=== PATIENT | female | born 1970 | race Caucasian/White ===

== ENCOUNTER 2019-12-31 05:49 | Outpatient (CLI) | payer OTHER, SELFPAY ==
[2019-12-31 16:38] LABS: SARS-CoV-2 RNA PCR Negative
== END 2019-12-31 05:50 | disposition home or self-care (01) ==
LOC: ANHCOVIDDT 05:50
PROVIDERS: Visit Provider Orthopaedic Surgery
DX: Z01.818 Encounter for other preprocedural examination (principal); M17.0 Bilateral primary osteoarthritis of knee; Z11.59 Encounter for screening for other viral diseases
CPT/HCPCS: 87635; C9803; U0003

== ENCOUNTER 2020-01-02 01:08 | Day surgery (SDC) | payer OTHER, SELFPAY ==
[2019-12-30 14:31] VITALS: BMI 31.1
[2020-01-02] VITALS (9 sets, daily range): BP systolic 104–126; BP diastolic 64–80; PULSE 59–74; RESP 10–18; TEMP 36–36.4; O2SAT 97–100
[2020-01-02] MEDS: LACTATED RINGERS 1,000 ML 30 ML IV CONT ×2 (08:45→10:49)
--- NOTE | 2020-01-02 09:19 | WPDANESEPPF ---
Anes - Initial Pre Proc Eval Procedure: Operation Date: 01/02/20 09:30 Proposed Procedures p Left Knee Arthroscopic Debridement, Proceed As Indicated, Right Knee Injection - Jhonny Alex MD Date/Time: 01/02/20 09:19 Surgeon: Jhonny Alex MD Pre Op Diagnosis: OA Fercho Knee Patient Data Age: 49 Gender: F Height: 5 ft 7 in Weight: 89.7 kg Last Vital Signs Temp 36.4 C L 01/02/20 08:05 Pulse 73 01/02/20 08:05 Resp 18 01/02/20 08:05 BP 104/78 01/02/20 08:05 Pulse Ox 98 01/02/20 08:05 Allergies Allergy/AdvReac Type Severity Reaction Status Date / Time codeine Allergy Unknown Hives Verified 12/30/19 14:18 Home Medications Medication Instructions Recorded Confirmed Type escitalopram oxalate 20 mg PO DAILY 12/30/19 01/02/20 History Patient hx anesthesia problems: none Family hx anesthesia problems: none PMFSH Past Medical History Medical History (Updated 01/02/20 @ 09:20 by Tal Salgado MD) Obesity Osteoarthritis of both knees Surgical History Surgical History (Updated 01/02/20 @ 09:20 by Tal Salgado MD) History of appendectomy History of arthroscopy of both knees History of cholecystectomy Family History Family History Other Family history of malignant neoplasm Social History Social History Smoking status: Never smoker Anes - Eval Final PreProcedure Day of Procedure 01/02/20 09:19 Patient weight: obese Heart: regular rate and rhythm Lungs: clear to auscultation Airway: Mallampati scale class II Neurological: alert and oriented ASA classification: II Emergent: no Anesthetic plan: proceed Anesthesia type and monitoring: general LMA and standard monitoring Informed Consent: The patient's anesthetic plan and its attendant risks and benefits were discussed with the patient/family/POA. Questions were solicited and answers provided to the satisfaction of the patient/family/POA.
--- NOTE | 2020-01-02 09:43 | WPDHPUPDATE1 ---
History and Physical Update Update Date/Time: 01/02/20 09:43 History and Physical has been reviewed, including an updated exam of the patient. There are NO changes in the patient's condition. Risks, benefits, and alternatives have been discussed and questions answered. Patient agrees to proceed with procedure.
[2020-01-02] MEDS: ceFAZolin 2 GM/D5W 50 ML 2 GM/50 ML BAG IVPB (09:56)
[2020-01-02] MEDS: methylPREDNISolone ACETATE 80 MG/ML VIAL IM (10:09)
[2020-01-02] MEDS: BUPIVACAINE/EPINEPHRINE 0.5% 30 ML VIAL INFILTRATE (10:17)
[2020-01-02] MEDS: KETOROLAC 30 MG/ML VIAL (*BKC) IV PUSH (10:42)
[2020-01-02] MEDS: ONDANSETRON INJ 4 MG/2 ML VIAL IV PUSH (11:10)
--- NOTE | 2020-01-02 12:28 | SUR.PHASEII ---
1225- RIDE CALLED WITH UPDATE.
--- NOTE | 2020-01-03 15:33 | PM.PROC ---
Procedure Note - Detailed Date of procedure: 01/02/20 Pre-op diagnosis: OA Fercho Knee Post-op diagnosis: other (1. Symptomatic degenerative medial meniscus tear 2. Partial ACL tear ) Procedure performed: 1. Arthroscopic partial medial meniscectomy. 2. Arthroscopic ACL debridement. 3. Arthroscopic chondroplasty. Description of procedure: The romeo was carefully inspected. The previous medial meniscectomy showed some progressive degeneration at posterior medial horn in particular. There was hyperemia at capsule. Fitzgerald cyst that was palpable was expressed into the joint. The area was treated with the arthroscopic Kylah and punches, along with the radiofrequency probe. The ACL showed partial tearing along the lateral aspect. There was some synovitis around the ACL. The radiofrequency probe was used to debride and also tighten the intact ACL fibers which were very functional. There was some scar tissue along the medial femoral condyle that was debrided. Chondroplasty was also performed at the patellofemoral joint and medial compartment. Anesthesia: GETA Surgeon: Jhonny Alex MD Estimated blood loss (mL): 5 Complications: None Condition: stable Findings: Brief History: The patient complained of knee pain, swelling and mechanical symptoms despite conservative treatment. She also had a symptomatic medial posterior Fitzgerald cyst. History of knee arthroscopy several years ago with good result. Procedure Details: The patient was identified and the surgical site confirmed and signed in the preoperative holding area. Antibiotics were started per protocol. She was brought to the operative room and transferred to the OR table. A general anesthetic was administered. Supine position with the operative lower extremity position in the leg hough after placement of a well padded tourniquet. The leg support was lowered and the contralateral limb was supported with a soft bolster. The knee was prepped and draped in the usual sterile fashion. A time-out was performed. The portal sites were marked and infiltrated with 0.5% Marcaine 20 mL. The limb was exsanguinated and the tourniquet inflated to 300 mL Hg. Standard inferolateral and inferomedial portals were established. Inflow was obtained with the saline pump. The camera was introduced. Diagnostic inspection of the joint was accomplished. The meniscus was debrided with the arthroscopic shaver and punches until stable. The radiofrequency probe was also used to treat the degenerative area at the capsule in particular and also sealed the remaining free edge of the meniscus. Chondromalacia was present primarily at the patellofemoral joint and grade 2 on the patella and grade 3 on the trochlea. Grade 1 chondromalacia on the medial tibia. Grade 2/3 on the medial femur. Lateral cartilage was healthy. The meniscus showed no significant tearing laterally. Was some synovial tissue draped across the medial femoral condyle, which was debrided. Mild synovitis was noted at the intercondylar notch. The arthroscopic instruments were removed. The tourniquet released and wounds closed with subcutaneous 3-0 Monocryl absorbable suture. Steri strips and a sterile dressing were applied. A light elastic wrap was placed. The patient was extubated and brought to the recovery room in stable condition.
== END 2020-01-02 13:35 | disposition home or self-care (01) ==
PROVIDERS: Visit Provider Orthopaedic Surgery
PROC: (CPT 29870; principal; 2020-01-02 09:30)
DX: M23.322 Other meniscus derangements, posterior horn of medial meniscus, left knee (principal); M71.22 Synovial cyst of popliteal space [Baker], left knee; M23.612 Other spontaneous disruption of anterior cruciate ligament of left knee; M94.262 Chondromalacia, left knee; M65.862 Other synovitis and tenosynovitis, left lower leg; M17.0 Bilateral primary osteoarthritis of knee; E66.9 Obesity, unspecified; Z68.31 Body mass index [BMI] 31.0-31.9, adult
CPT/HCPCS: 29881; A9270; J0131; J0690; J1040; J1885; J2250; J2405; J2704; J3010; J7120

== ENCOUNTER 2021-01-24 10:17 | Outpatient (CLI) | payer OTHER, SELFPAY ==
[2021-01-24 11:41] LABS: Hematocrit 38.7 % (37.0-47.0); Hemoglobin 13.4 g/dL (12.0-15.0)
== END 2021-01-24 10:18 | disposition home or self-care (01) ==
PROVIDERS: Anesthesiology; Visit Provider Obstetrics & Gynecology
DX: N92.0 Excessive and frequent menstruation with regular cycle (principal); D64.9 Anemia, unspecified; Z01.818 Encounter for other preprocedural examination
CPT/HCPCS: 36415; 85014; 85018; 86850; 86900; 86901

== ENCOUNTER → 2021-01-29 00:53 | Outpatient (CLI) | payer OTHER, SELFPAY ==
[2021-01-29 17:56] LABS: SARS-CoV-2 RNA PCR Negative
== END ==
PROVIDERS: Visit Provider Obstetrics & Gynecology
DX: Z01.812 Encounter for preprocedural laboratory examination (principal); Z20.822 Contact with and (suspected) exposure to COVID-19
CPT/HCPCS: C9803; U0003; U0005

== ENCOUNTER 2021-02-01 02:19 | Day surgery (SDC) | payer OTHER, SELFPAY ==
[2021-01-19 15:23] VITALS: BMI 33.0
[2021-02-01] VITALS (14 sets, daily range): BP systolic 101–128; BP diastolic 62–91; PULSE 52–67; RESP 10–24; TEMP 36.2–37.4; O2SAT 95–100
[2021-02-01] MEDS: ACETAMINOPHEN 500 MG TABLET 1000 MG PO (10:00)
[2021-02-01] MEDS: LACTATED RINGERS 1,000 ML 30 ML IV CONT ×2 (10:10→12:33)
[2021-02-01] MEDS: KETOROLAC 15 MG/ML VIAL (*BKC) IV PUSH ×2 (10:15→14:06)
--- NOTE | 2021-02-01 10:23 | WPDHPUPDATE1 ---
History and Physical Update Update Date/Time: 02/01/21 10:23 History and Physical has been reviewed, including an updated exam of the patient. There are NO changes in the patient's condition. Risks, benefits, and alternatives have been discussed and questions answered. Patient agrees to proceed with procedure.
--- NOTE | 2021-02-01 10:27 | WPDANESEPPF ---
Anes - Initial Pre Proc Eval Procedure: Operation Date: 02/01/21 11:30 Proposed Procedures p Laparoscopic Assisted Total Hysterectomy With Bilateral Salpingo Oophorectomy - Mara Martin MD Date/Time: 02/01/21 10:27 Surgeon: Mara Martin MD Pre Op Diagnosis: Menorrhagia Patient Data Age: 50 Gender: F Height: 1.68 m Weight: 93 kg Allergies Allergy/AdvReac Type Severity Reaction Status Date / Time codeine Allergy Unknown Hives Verified 01/19/21 15:21 Home Medications Medication Instructions Recorded Confirmed Type bupropion HCl 150 mg PO DAILY 01/19/21 01/19/21 History escitalopram oxalate 20 mg PO DAILY 01/19/21 01/19/21 History ferrous sulfate [iron] 325 mg PO DAILY 01/19/21 01/19/21 History magnesium 1 tablet PO DAILY 01/19/21 01/19/21 History vitamin B complex [Super B Complex] 1 tablet PO DAILY 01/19/21 01/19/21 History Patient hx anesthesia problems: post op nausea/vomiting Family hx anesthesia problems: none PMFSH Past Medical History Medical History (Updated 01/31/21 @ 09:40 by Blane Swanson DO) Anxiety Depression Obesity Osteoarthritis of both knees Surgical History Surgical History (Updated 01/31/21 @ 09:40 by Blane Swanson DO) History of appendectomy History of arthroscopy of both knees History of History of cholecystectomy Family History Family History Other Family history of malignant neoplasm Social History Social History Smoking status: Never smoker Alcohol intake: never Substance use: never Substance use type: does not use Living arrangements: alone Spiritual care concerns: No Anes - Eval Final PreProcedure Day of Procedure 02/01/21 10:27 Patient weight: obese Heart: regular rate and rhythm Lungs: clear to auscultation and normal air movement Airway: Mallampati scale class II Neurological: alert and oriented Last oral intake: >/= 8 hours ASA classification: II Emergent: no Anesthetic plan: proceed Anesthesia type and monitoring: general ETT and standard monitoring Informed Consent: The patient's anesthetic plan and its attendant risks and benefits were discussed with the patient/family/POA. Questions were solicited and answers provided to the satisfaction of the patient/family/POA.
--- NOTE | 2021-02-01 10:31 | W.PM.PROC2 ---
Procedure Note - Detailed Date of Procedure 02/01/21 Pre-op Diagnosis Menorrhagia, uterine fibroids Post-op Diagnosis same (Cervical polyp) Procedure Performed Total laparoscopic hysterectomy and bilateral salpingectomy. Surgeon Mara Martin MD Anesthesia general Indications Severe menometrorrhagia Findings Moderately large uterus with multiple uterine fibroids, normal appearing tubes and ovaries, cervical polyp Description of Procedure This patient was taken to the operating room. She was prepped and draped in the dorsal lithotomy position after induction of general anesthesia. The uterine manipulator and Altagracia cup were placed. This was done with a speculum and tenaculum. The speculum was placed. The cervix was grasped with a tenaculum. The stay sutures were placed at 3 and 9:00 a.m.. The tenaculum was removed. The stay sutures of 0 Vicryl were brought through the appropriately sized Altagracia cup that was fixed to the MAR manipulator.. The tip of the MAR manipulator was placed in the intrauterine cavity. The cup was slid into place around the cervix and into the fornices. It was locked into place. The sutures were then wrapped around the handle and tied under tension. A 5 mm skin incision was made in the left upper quadrant the abdomen. A 5 mm trocar was inserted into the intrauterine cavity under direct visualization of the scope. Pneumoperitoneum was achieved. A left lower quadrant 11 mm incision was made with scalpel. An 11 mm trocar was inserted into the anterior abdominal cavity under direct visualization the scope. A 5 mm infraumbilical incision was made with a scalpel and a 5 mm trocar was inserted the intra-abdominal cavity under direct visualization of the scope. Bilateral ureteral lysis was performed. This was done from the pelvic brim down to the uterine artery. This was done with careful dissection using sharp and blunt dissection. Being mindful of the ureters the infundibulopelvic ligament was cauterized transected. This was done bilateral fashion using the LigaSure cautery. The para ovarian tissue was cauterized and dissected LigaSure cautery in a bilateral fashion. In a stepwise fashion along the lateral aspects of the uterus the round ligament and broad ligaments were cauterized transected down to the level of the uterine arteries. A bladder flap was created and the bladder was moved distally to the end of the cervix and over the Altagracia cup. The bilateral uterine arteries were cauterized and transected. Colpotomy was then performed. In a circumferential fashion the vagina was transected using unipolar cautery. The incision was made down on the Altagracia. The ovaries, fallopian tubes, uterus and cervix were taken out through the vagina. A pneumo occluder was placed in the vagina. The vaginal cuff was closed with a 0 V lock suture. The pelvis was irrigated with copious amounts antibiotic irrigation. The ureters were again examined and found to be intact and flowing freely under the uterine arteries into the bladder. The bladder was intact. It was examined directly. The vagina was irrigated with Betadine solution after removal of the Pneumo occluder. The patient was taken to recovery room. She was stable condition. Sponge lap and needle counts were correct x2. Estimated Blood Loss 200 Drains No Packing No Pathology yes Complications No immediate complications Condition stable Disposition PACU
[2021-02-01] MEDS: FAMOTIDINE 20 MG/2 ML VIAL IV PUSH (10:32)
[2021-02-01] MEDS: SCOPOLAMINE 1.5 MG PATCH TRANSDERM (10:33)
[2021-02-01] MEDS: ceFAZolin 2 GM/D5W 50 ML 2 GM/50 ML BAG IVPB (10:49)
[2021-02-01] MEDS: fentaNYL CITRATE INJ (*CRX) 100 MCG/2 ML VIAL 25 MCG IV PUSH ×4 (12:46→13:08)
[2021-02-01] MEDS: ONDANSETRON INJ 4 MG/2 ML VIAL IV PUSH (13:06)
[2021-02-01] MEDS: HYDROmorphone HCL INJ (*CRX) 1 MG/ML SYR 0.5 MG IV PUSH ×6 (13:24→14:17)
[2021-02-01] MEDS: DEXTROSE 5%/0.45% SOD CHL 1,000 ML 125 ML IV CONT (15:44)
[2021-02-01] MEDS: HYDROcodone/acetaminophen (*CRX) 5-325 MG TABLET 1 TAB PO ×2 (15:44→16:38)
--- NOTE | 2021-02-01 15:56 | OBPPTRN ---
1507 Patient transferred to post room #283 via bed. Support person present. Oriented to unit, room, information board, admission packet and security measures. Patient verbalizes understanding.
[2021-02-01] MEDS: HYDROcodone/acetaminophen (*CRX) 10-325 MG TABLET 1 TAB PO ×2 (19:57→23:18)
[2021-02-01] MEDS: KETOROLAC 30 MG/ML VIAL (*BKC) IV PUSH (20:59)
[2021-02-02] MEDS: HYDROcodone/acetaminophen (*CRX) 10-325 MG TABLET 1 TAB PO ×3 (02:12→09:44)
[2021-02-02] MEDS: KETOROLAC 30 MG/ML VIAL (*BKC) IV PUSH (03:14)
[2021-02-02 03:41] VITALS: BP 121/67; PULSE 78; RESP 20; TEMP 36.6; O2SAT 100
--- NOTE | 2021-02-02 07:58 | WPDANESPN ---
Anes - Prog Note Post-Op Date/Time: 02/02/21 07:58 Cardiovascular status: normal Respiratory status: normal Airway patency: baseline Mental status: baseline Post-Op hydration status: normal Vital Signs: Last Vital Signs Temp 36.6 C 02/02/21 03:41 Pulse 78 02/02/21 03:41 Resp 20 02/02/21 03:41 BP 121/67 02/02/21 03:41 Pulse Ox 100 02/02/21 03:41 Pain Score (VAS): 0 I/O: Intake & Output 02/01/21 02/01/21 02/02/21 15:59 23:59 07:59 Intake Total 750 1000 1400 Output Total 300 2400 Balance 450 1000 -1000 Post-procedural complaints: none Patient Feedback: Patient satisfied with anesthetic care.
[2021-02-02 08:10] VITALS: BP 96/60; PULSE 61; RESP 16; TEMP 37.1; O2SAT 99
--- NOTE | 2021-02-02 09:00 | PC.NURSE ---
PT introductions made and plan of care discussed per post op obstetrics gynecology md surgery, pain management, daily care activities and pending discharge to home. PT received instructions per one to one, and demonstration. No barriers to learning noted. PT and friend, Nolvia were both recipients of such teaching through out the shift. PT verbalized understanding of such care.
--- NOTE | 2021-02-02 09:29 | PM.GYNPNOP ---
[employer] - A/P Postoperative Procedures: Procedures Operation Date: 02/01/21 11:30 Actual Procedure Side Surgeon p Laparoscopic Assisted Total Hysterectomy With Bilateral Salpingo Oophorectomy, Cervical Polypectomy Bilateral Mara Martin MD Postoperative day: 1 Postoperative status: doing well and other (Tollerating Regular Diet) Postoperative plan: routine post-op care and discharge Time Spent With Patient Time: Total time spent is greater than 50% in coordination of care (as documented) at patient's floor/unit and/or counseling patient: Time with patient: 15 - 25 minutes [employer]- PN:Subj Post-Op Subjective Date/time seen: 02/02/21 09:29 Subjective: patient reports feeling better, pain is well controlled and patient is tolerating oral intake Exam Const: General: cooperative, healthy appearing, comfortable and no acute distress Resp: Auscultation: no crackles, no rales, no rhonchi and no wheezes Cardio: Rhythm: regular rhythm Heart sounds: no click and no murmurs GI: Inspection: non-distended Auscultation: normal bowel sounds Other: Incisions - CDI Extrem: General: normal to inspection, no pedal edema and no calf tenderness [employer] - PN: Obj Data Vital Signs Vital Signs: Vital Signs - 24 hr 02/01/21 10:37 02/01/21 12:39 02/01/21 12:55 Temperature 97.2 F L 97.2 F L Pulse Rate 57 L 65 67 Respiratory Rate 10 L 24 H Blood Pressure 111/71 113/73 116/91 H Pulse Oximetry 99 100 100 02/01/21 13:10 02/01/21 13:26 02/01/21 13:43 Temperature Pulse Rate 67 62 61 Respiratory Rate 16 24 H 24 H Blood Pressure 123/84 128/84 110/70 Pulse Oximetry 100 98 100 02/01/21 14:00 02/01/21 14:15 02/01/21 14:30 Temperature Pulse Rate 60 65 67 Respiratory Rate 22 H 15 18 Blood Pressure 115/68 114/76 101/72 Pulse Oximetry 100 95 100 02/01/21 14:45 02/01/21 15:07 02/01/21 18:30 Temperature 99.3 F Pulse Rate 65 66 Respiratory Rate 16 16 20 Blood Pressure 123/68 107/72 Pulse Oximetry 100 98 98 02/01/21 18:45 02/01/21 23:00 02/02/21 03:41 Temperature 98.3 F 98.3 F 97.9 F Pulse Rate 60 52 L 78 Respiratory Rate 20 18 20 Blood Pressure 109/62 104/66 121/67 Pulse Oximetry 98 100 100 02/02/21 08:10 Temperature 98.8 F Pulse Rate 61 Respiratory Rate 16 Blood Pressure 96/60 L Pulse Oximetry 99 Intake/Output Intake/Output: Intake & Output 01/30/21 01/31/21 02/01/21 02/02/21 23:59 23:59 23:59 23:59 Intake Total 1750 1400 Output Total 300 2400 Balance 1450 -1000 Meds/Results Medications: Active Medications Generic Name Dose Route Start Last Admin Trade Name Freq PRN Reason Stop Dose Admin Hydrocodone Bitart/Acetaminophen 1 tab 02/01/21 15:01 02/01/21 16:38 Hydrocodone/Acetaminophen (*Crx) 5-325 Mg Tablet PO 1 tab Q3H PRN Administration Pain Rated 5 or Less Hydrocodone Bitart/Acetaminophen 1 tab 02/01/21 15:01 02/02/21 06:05 Hydrocodone/Acetaminophen (*Crx) 10-325 Mg Tablet PO 1 tab Q3H PRN Administration Pain Rated 6 or Greater Bupropion HCl 150 mg 02/02/21 09:00 Bupropion Hcl Xl (24 Hr) 150 Mg Tabcr PO DAILY [facility] Escitalopram Oxalate 20 mg 02/02/21 09:00 Escitalopram Oxalate 10 Mg Tablet PO DAILY [facility] Ibuprofen 600 mg 02/01/21 15:01 Ibuprofen 600 Mg Tablet PO Q6H PRN Cramping Ketorolac Tromethamine 30 mg 02/01/21 15:01 02/02/21 03:14 Ketorolac 30 Mg/Ml Vial (*Bkc) IV PUSH 02/06/21 15:02 30 mg Q6H PRN Administration Pain Rated 4-6 Naloxone HCl 0.1 mg 02/01/21 15:01 Naloxone Hcl 0.4 Mg/Ml Vial IV PUSH Q2M PRN Respiratory rate less than 10 Ondansetron HCl 4 mg 02/01/21 15:01 Ondansetron Inj 4 Mg/2 Ml Vial IV PUSH Q6H PRN Nausea And Vomiting
[2021-02-02] MEDS: buPROPion HCL XL (24 HR) 150 MG TABCR PO (09:43)
[2021-02-02] MEDS: ESCITALOPRAM OXALATE 10 MG TABLET 20 MG PO (09:43)
[2021-02-02 09:45] VITALS: PULSE 61; RESP 16; O2SAT 99
[2021-02-02] MEDS: IBUPROFEN 600 MG TABLET PO (09:45)
--- NOTE | 2021-02-02 11:00 | PC.NURSE ---
PT received discharge instructions per protocol and verbalized understanding of such care.
--- NOTE | 2021-02-02 11:12 | PC.NURSE ---
PT discharged to home via wheelchair accompanied by friend, Nolvia and taken to waiting car. Follow up appts confirmed
== END 2021-02-02 11:12 | disposition home or self-care (01) ==
LOC: ANHSURGERY 09:25 → ANHOB2 15:07
PROVIDERS: Visit Provider Obstetrics & Gynecology
PROC: 0UT9FZZ Resection of Uterus, Via Natural or Artificial Opening With Percutaneous Endoscopic Assistance (ICD-10-PCS; CPT 58571; principal; 2021-02-01 11:30)
DX: N92.0 Excessive and frequent menstruation with regular cycle (principal); D25.0 Submucous leiomyoma of uterus; D25.1 Intramural leiomyoma of uterus; D25.2 Subserosal leiomyoma of uterus; N73.6 Female pelvic peritoneal adhesions (postinfective); N84.1 Polyp of cervix uteri; F41.8 Other specified anxiety disorders; E66.9 Obesity, unspecified; Z68.33 Body mass index [BMI] 33.0-33.9, adult
CPT/HCPCS: 58571; 36415; 85014; 85018; 86850; 86900; 86901; 88305; 88307; 99199; A9270; C9803; J0690; J1100; J1170; J1885; J2250; J2405; J2704; J2710; J3010; J7030; J7120; U0003; U0005

== ENCOUNTER → 2021-03-01 12:30 | Outpatient (CLI) | payer OTHER, SELFPAY ==
--- NOTE | ~2021-03-01 | MM_ITS ---
EXAMINATION: MM screening fany BI w hue HISTORY: Screening mammogram TECHNIQUE: Craniocaudal and mediolateral oblique 3-D tomosynthesis images were obtained and synthetic 2-D images were generated. CAD analysis was submitted and interpreted. COMPARISON: No prior mammogram is available for comparison at this institution. BREAST PARENCHYMAL COMPOSITION: There are scattered areas of fibroglandular density. FINDINGS: Changes of excisional biopsy are noted in the upper outer quadrant of the left breast. Ther e is no evidence of suspicious mass, calcification, or architectural distortion to suggest malignancy in either breast. IMPRESSION: 1. No mammographic evidence of malignancy. 2. Recommend routine screening mammography in one year. BI-RADS Category 2: Benign finding(s). Reviewed, dictated and finalized at location A.
== END ==
PROVIDERS: Visit Provider Obstetrics & Gynecology
DX: Z12.31 Encounter for screening mammogram for malignant neoplasm of breast (principal)
CPT/HCPCS: 77063; 77067

== ENCOUNTER 2021-04-11 08:01 | Emergency (ER) | payer OTHER, SELFPAY ==
--- NOTE | ~2021-04-11 | CT_ITS ---
EXAMINATION: CT abdomen pelvis w con DATE: 04/11/2021 09:16 INDICATION: Left lower quadrant abdominal pain. TECHNIQUE: Computed tomography (CT) of the abdomen and pelvis was performed with 100 mL Omnipaque 350 intravenous contrast. Automated exposure control and iterative reconstruction technique were employe d. The dose-length product was 930.56 mGy-cm. COMPARISON: None. FINDINGS: The visualized portions of the lung bases demonstrate mild atelectasis. No pleural effusion . The heart size is normal. No pericardial effusion. There are cysts in the liver measuring up to 5 m m. There is a 5 mm low-attenuation lesion in the spleen, likely a benign lesion such as granulomatous disease. The pancreas, adrenal glands, and kidneys are normal. There are scattered diverticula in th e colon. There is fat stranding around a diverticulum of the sigmoid colon with local bowel wall thic kening, consistent with diverticulitis. There is trace fluid in left paracolic gutter. There are no p athologically enlarged lymph nodes. There is severe lower thoracic spondylosis. There is mild chronic anterior wedging of T12 and L1 vertebral bodies. There is mild lumbar spondylosis. IMPRESSION: 1. Acute sigmoid diverticulitis. No perforation or abscess. Reviewed, dictated and finalized at location A.
[2021-04-11 08:45] LABS: Basophils Absolute Auto 0.1 K/mm3 (0.0-0.1); Basophils Percent Auto 0.5 % (0.2-1.2); Eosinophils Absolute Auto 0.1 K/mm3 (0-0.3); Eosinophils Percent Auto 0.8 % (0-4.4); Hematocrit 38.1 % (37.0-47.0); Immature Granulocyte Absolute 0.08 K/mm3 (0.00-0.031); Immature Granulocyte Percent A 0.8 % (0-0.5); Lymphocytes Absolute Auto 1.42 K/mm3 (0.9-3.2); Lymphocytes Percent Auto 13.4 % (18.3-44.2); Mean Corpuscular HGB Conc 34.1 g/dl (32-36); Mean Corpuscular Hemoglobin 31.5 pg (26-34); Mean Corpuscular Volume 92.3 fl (80-100); Mean Platelet Volume 9.1 fl (7.4-10.4); Monocytes Percent Auto 9.2 % (2.6-8.5); Neutrophils Percent Auto 75.3 % (45.5-73.1); Platelet Count Result 235 k/mm3 (150-375); Red Blood Count 4.13 M/mm3 (4.2-5.4); Red Cell Distribution Width 11.9 % (11.5-14.5); White Blood Count 10.6 K/mm3 (4.5-10.0)
[2021-04-11] MEDS: ONDANSETRON INJ 4 MG/2 ML VIAL IV PUSH (08:49)
[2021-04-11] MEDS: MORPHINE SULFATE (*CRX) 4 MG/ML INJ IV PUSH (08:50)
[2021-04-11 08:55] LABS: Alanine Aminotransferase 15 U/L (4-35); Alkaline Phosphatase 104 U/L (38-126); Anion Gap 5 mmol/L (8-16); Aspartate Amino Transferase 25 U/L (14-36); Bilirubin,Total 0.7 mg/dL (0.2-1.3); Blood Urea Nitrogen 17 mg/dL (7-17); Calcium 8.8 mg/dL (8.4-10.2); Carbon Dioxide 29 mmol/L (22-30); Chloride 103 mmol/L (98-107); Estimated Glomerular Filt Rate 52; Glucose 108 mg/dL (65-110); Potassium 4.4 mmol/L (3.4-5.0); Sodium 137 mmol/L (137-145)
[2021-04-11 08:57] LABS: Lactic Acid Reflex 0.8 mmol/L (0.7-2.1)
[2021-04-11 08:59] VITALS: BP 97/74; PULSE 66; RESP 18; TEMP 36.8; O2SAT 97
[2021-04-11 09:03] LABS: Add Urine Microscopic? YES; Appearance Urine Clear (Clear); Bacteria Urine Trace /hpf; Bilirubin Urine Negative (Negative); Blood Urine Negative (Negative); Color Urine Amber (Yellow); Glucose Urine UA Negative (Negative); Ketones Urine Negative (Negative); Leukocyte Esterase Ur Negative LEU/UL (Negative); Mucus Urine Few /lpf; Nitrate Urine Negative (Negative); Protein Urine 2+ mg/dL (Negative); RBC Urine 0-2 /hpf (0-2); Squamous Epithelial Cell Urine Few /hpf (Few); Urobilinogen Urine Negative mg/dL (<2.0)
[2021-04-11 09:10] LABS: Specific Grav Ur 1.033 (1.001-1.035)
[2021-04-11] MEDS: KETOROLAC 30 MG/ML VIAL (*BKC) IV PUSH (10:14)
[2021-04-11 11:00] VITALS: BP 102/68; PULSE 62; RESP 18; O2SAT 100
[2021-04-11 12:00] VITALS: BP 102/61; PULSE 78; RESP 18; O2SAT 100
[2021-04-11] MEDS: HYDROmorphone HCL INJ (*CRX) 1 MG/ML SYR IV PUSH (12:58)
--- NOTE | 2021-04-11 13:36 | ED.ABDPAIN ---
HPI - Abdominal Pain General Chief Complaint: Abdominal Pain Stated Complaint: Abd pain Time Seen by Provider: 04/11/21 08:06 Source: patient Mode of arrival: ambulatory Limitations: no limitations History of Present Illness HPI narrative: 50-year-old with a history of diverticulitis here with complaints of left lower abdominal pain for past few days pain has been steady since this morning. She denies any fever or chills. Denies any rectal bleeding. MD elicited complaint: abdominal pain Pertinent past history: diverticulitis Pain Consistency: constant Location: LLQ Severity: severe Quality: aching Radiation: L flank Exacerbating factors: nothing Relieving factors: nothing Associated symptoms: denies other symptoms Related Data Home Medications Medication Instructions Recorded Confirmed bupropion HCl 150 mg PO DAILY 01/19/21 02/01/21 escitalopram oxalate 20 mg PO DAILY 01/19/21 02/01/21 ferrous sulfate [iron] 325 mg PO DAILY 01/19/21 02/01/21 magnesium 1 tablet PO DAILY 01/19/21 02/01/21 vitamin B complex 1 tablet PO DAILY 01/19/21 02/01/21 Allergies Allergy/AdvReac Type Severity Reaction Status Date / Time codeine Allergy Unknown Hives Verified 04/11/21 09:04 Review of Systems Review of Systems: All systems reviewed & are unremarkable except as noted in HPI and below Constitutional: Constitutional: Reports no additional constitutional complaints Eyes: Eyes: Reports no additional eye complaints ENT: Reports system reviewed and no additional complaints, except as documented Cardiovascular: Cardiovascular: Reports no additional cardiovascular complaints Respiratory: Respiratory: Reports no additional respiratory complaints Gastrointestinal: Gastrointestinal: Reports as per HPI Genitourinary: Genitourinary: Reports no additional female genitourinary complaints Musculoskeletal: Musculoskeletal: Reports no additional musculoskeletal complaints [facility] Past Medical History Medical History Anxiety Depression Obesity Osteoarthritis of both knees Surgical History Surgical History History of appendectomy History of arthroscopy of both knees History of History of cholecystectomy Family History Family History Other Family history of malignant neoplasm Social History Social History Smoking status: Never smoker Alcohol intake: never Substance use: never Substance use type: does not use Spiritual care concerns: No Exam Narrative: GENERAL: Well-appearing, well-nourished, and in no acute distress. HEAD: Normocephalic, atraumatic. EYES: PERRLA NECK: Supple. CHEST: Clear to auscultation. No respiratory distress. HEART: Regular rate and rhythm. No murmur heard. Normal peripheral pulses. ABDOMEN: Soft, tender in the llq , nondistended, normal active bowel sounds. EXTREMITIES: Normal range of motion. No edema. SKIN: Warm, dry, no rash. NEURO: No focal deficits. Alert and oriented x3. PSYCH: Normal mood and affect. Course Course Emergency Course: Patient still continues to be in pain with high after IV morphine and Toradol. Informed her about her lab work, CT findings she wants her pain to get better. I have given IV Dilaudid which improved her pain. She states that she feels comfortable going home. I did offer admission patient declined. Vital Signs Vital signs: Vital Signs Temperature 36.8 C 04/11/21 08:59 Pulse Rate 66 04/11/21 08:59 Respiratory Rate 18 04/11/21 08:59 Blood Pressure 97/74 L 04/11/21 08:59 Pulse Oximetry 97 04/11/21 08:59 Temperature 36.8 C 04/11/21 08:59 Pulse Rate 66 04/11/21 08:59 Respiratory Rate 18 04/11/21 08:59 Blood Pressure 97/74 L 04/11/21 08:59 Pulse Oximetry 97 04/11/21 08:59 MDM - Abdominal
[2021-04-11 14:02] VITALS: BP 104/61; PULSE 65; RESP 18; O2SAT 100
== END 2021-04-11 14:03 | disposition home or self-care (01) ==
PROVIDERS: Emergency Provider Family Medicine
DX: K57.32 Diverticulitis of large intestine without perforation or abscess without bleeding (principal); F41.9 Anxiety disorder, unspecified; F32.9 Major depressive disorder, single episode, unspecified; M17.0 Bilateral primary osteoarthritis of knee; E66.9 Obesity, unspecified; Z68.32 Body mass index [BMI] 32.0-32.9, adult
CPT/HCPCS: 36415; 74177; 80053; 81001; 83605; 85025; 96365; 96375; 99284; J1170; J1885; J1956; J2270; J2405; Q9967

== ENCOUNTER 2022-04-21 10:06 | Outpatient (CLI) | payer BC, SELFPAY ==
--- NOTE | 2022-04-21 | ECG_ITS ---
Measurements Intervals [place] Rate: 46 P: 68 OK: 193 QRS: 28 QRSD: 88 T: -14 QT: 436 QTc: 382 Interpretive Statements SINUS BRADYCARDIA RSR' IN V1 OR V2, PROBABLY NORMAL VARIANT LOW QRS VOLTAGE IN PRECORDIAL LEADS BORDERLINE ST-T WAVE ABNORMALITY- ANT/INF LEADS ABNORMAL ECG NO PREVIOUS ECG AVAILABLE FOR COMPARISON Electronically Signed On 04-21-2022 14:34:36 CDT by Alonso Roldan D.O.
[2022-04-21 11:59] LABS: Basophils Percent Auto 0.6 % (0.2-1.2); Eosinophils Absolute Auto 0.1 K/mm3 (0-0.3); Eosinophils Percent Auto 0.9 % (0-4.4); Hematocrit 39.6 % (37.0-47.0); Hemoglobin 13.1 g/dL (12.0-15.0); Immature Granulocyte Absolute 0.04 K/mm3 (0.00-0.031); Immature Granulocyte Percent A 0.6 % (0-0.5); Lymphocytes Absolute Auto 0.99 K/mm3 (0.9-3.2); Lymphocytes Percent Auto 14.2 % (18.3-44.2); Mean Corpuscular HGB Conc 33.1 g/dl (32-36); Mean Corpuscular Hemoglobin 30.3 pg (26-34); Mean Corpuscular Volume 91.5 fl (80-100); Mean Platelet Volume 8.9 fl (7.4-10.4); Monocytes Absolute Auto 0.4 K/mm3 (0.1-0.6); Monocytes Percent Auto 5.6 % (2.6-8.5); Neutrophils Absolute Auto 5.5 K/mm3 (1.3-6.7); Neutrophils Percent Auto 78.1 % (45.5-73.1); Platelet Count Result 305 k/mm3 (150-375); Red Blood Count 4.33 M/mm3 (4.2-5.4); Red Cell Distribution Width 12.6 % (11.5-14.5)
[2022-04-21 12:11] LABS: CRP 1.7 mg/dL (<1.0)
[2022-04-21 12:42] LABS: Erythrocyte Sedimentation Rate 49 mm/hr (0-20); Rheumatoid Factor < 8.6 IU/ML (<12)
[2022-04-24 12:04] LABS: Anti Cyclic Citrullinated Pept <16 Units (<20)
== END 2022-04-21 10:07 | disposition home or self-care (01) ==
PROVIDERS: PCP Nurse Practitioner; Visit Provider Orthopaedic Surgery
DX: M25.461 Effusion, right knee (principal); M25.462 Effusion, left knee; M25.472 Effusion, left ankle; E66.9 Obesity, unspecified
CPT/HCPCS: 36415; 85025; 85652; 86038; 86039; 86140; 86200; 86430; 93005

== ENCOUNTER → 2022-05-24 15:27 | Outpatient (CLI) | payer BC, SELFPAY ==
--- NOTE | ~2022-05-24 | MM_ITS ---
EXAMINATION: MM screening fany BI w hue HISTORY: Screening mammogram TECHNIQUE: Craniocaudal and mediolateral oblique 3-D tomosynthesis images were obtained and synthetic 2-D images were generated. CAD analysis was submitted and interpreted. COMPARISON: 03/01/2021 BREAST PARENCHYMAL COMPOSITION: There are scattered areas of fibroglandular density. FINDINGS: No suspicious mass, calcification, or architectural distortion are identified in either shahbaz ast to suggest malignancy. There has been no suspicious interval change. IMPRESSION: 1. No mammographic evidence of malignancy. 2. Recommend routine screening mammography in one year. BI-RADS Category 1: Negative Reviewed, dictated and finalized at location A.
== END ==
PROVIDERS: PCP Internal Medicine; Visit Provider Obstetrics & Gynecology
DX: Z12.31 Encounter for screening mammogram for malignant neoplasm of breast (principal)
CPT/HCPCS: 77063; 77067

== ENCOUNTER 2025-01-30 12:07 | Outpatient (CLI) | payer BC, SELFPAY ==
--- NOTE | ~2025-01-30 | XR_ITS ---
XR knee RT min 4V 01/30/2025 12:34 Indication: Right knee pain Procedure: 4 views right knee Comparison: No prior studies for comparison. Findings: There is moderate tricompartment osteoarthritis of the right knee. No lateral view provided . No focal soft tissue abnormality. No foreign body. Impression: 1: Moderate tricompartment osteoarthritis. Reviewed, dictated and finalized at location B. Impression: 1: Moderate tricompartment osteoarthritis.
--- OUTSIDE RECORDS SUMMARY | 2025-01-30 12:12 | XMS_ITS | Patient Health Record ---
Author Organization [facility] [employer] [facility] Address [address] [facility] [address] [place] [address] Care Team Providers Care Hairspring Inspector Name Role Phone Belle Tinoco Unavailable [phone] JosiahLiya queen Unavailable [phone] Gian King Unavailable [phone] Allergies Allergen (clinical drug ingredient) Drug/Non Drug Allergy documented on EMR Reaction Allergy Type Onset Date Status codeine Codeine Unknown Drug Allergy 05/02/2023 Active Reason For Referral No Information Medications Medication SIG (Take, Route, Frequency, Duration) Notes Start Date End Date Status DULoxetine HCl 60 MG 1 capsule Oral Once a day for 90 days schedule appt for further refills 11/16/2023 Active buPROPion HCl ER (XL) 300 MG 1 tablet in the morning Oral Once a day for 90 days schedule appt for further refills Active hydrOXYzine Pamoate 25 MG 1 capsule Orally three times a day for 90 days As needed Active ARIPiprazole 5 MG 1 tablet Oral Once a day for 90 days schedule appt for further refills 11/16/2023 Active Social History Tobacco Use: Social History Observation Description Date Details (start date - stop date) Never Smoker NA - NA Sex Assigned At : Social History Observation Description Sex Assigned At Female Tobacco Control (Standard) Question Answer Notes Tobacco use: Nonsmoker Problems Problem Type SNOMED Code ICD Code Onset Dates Problem Status W/U Status Risk Notes Problem Recurrent major depression (43118053) Major depressive disorder, recurrent, in remission, unspecified (F33.40) 11/16/19 24 Active confirmed Problem Generalized anxiety disorder (51369181) Generalized anxiety disorder (F41.1) 11/16/19 24 Active confirmed Problem Primary insomnia (6677639) Primary insomnia (F51.01) 11/16/19 24 Active confirmed Problem 28683763 Insomnia due to other mental disorder (F51.05) Active confirmed Problem Screening for cardiovascular system disease (122507940) Encounter for screening for cardiovascular disorders (Z13.6) Active confirmed Problem [id number] Negative depression screening (Z13.31) Active confirmed Vital Signs Heart Rate 69 /min 01/06/2025 Height-cm 170.18 cm 01/06/2025 Blood pressure diastolic 83 mm Hg 01/06/2025 Weight-kg 95.26 kg 01/06/2025 Height 67.00 in 01/06/2025 Blood pressure systolic 111 mm Hg 01/06/2025 Weight 210.0 lbs 01/06/2025 BMI 32.89 kg/m2 01/06/2025 Encounters Encounter Location Date Provider Diagnosis [place] [employer] [address] [address] 07/23/2024 Gian King Generalized anxiety disorder F41.1 ; Major depressive disorder, recurrent, in remission, unspecified F33.40 and Primary insomnia F51.01 [employer] [address] [address] 11/03/2024 Belle Earnest [facility] [employer] [place] [address] [address] 01/06/2025 Gian King Generalized anxiety disorder F41.1 ; Insomnia due to other mental disorder F51.05 ; Major depressive disorder, recurrent, in remission, unspecified F33.40 ; Negative depression screening Z13.31 and Encounter for screening for cardiovascular disorders Z13.6 [employer] [address] [address] 06/17/2024 Liya Gonzáles Assessments Encounter Date Diagnosis (ICD Code) Assessment Notes Treatment Notes Treatment Clinical Notes Section Notes 07/23/2024 Major depressive disorder, recurrent, in remission, unspecified (ICD-10 - F33.40) 1. Insomnia and Muscle Spasms - Patient reports taking lorazepam rarely for sleep difficulty due to muscle spasms and tension. - Patient experiences headaches and tension, making relaxation difficult. - Plan: a. Discontinue lorazepam. b. Prescribe hydroxyzine 25mg, up to 3 times daily as needed for anxiety. c. Provide 30-day supply with 90 capsules. 2. Depression and Anxiety - PHQ-9 and ADRIANA-7 scores both 0, indicating no current symptoms. - Patient reports feeling great with no anxiety, depression, or thoughts of self-harm. - Patient states she has found the right medication combination. - Plan: a. Continue current medications: bupropion XL 300mg daily, duloxetine 60mg daily, and aripiprazole 5mg daily. b. Prescribe 90-day supplies for each medication. 3. Follow-up Care - Plan: a. Schedule follow-up appointment in three months. b. Assist patient in securing an appointment upstairs today. 4. Additional Information - Patient denies current use of thyroid medication, hydrochlorothi azide, Monjaro, or Ozempic. - No smoking, marijuana use, drug use, or alcohol consumption reported. - Patient confirms feeling safe at home. 07/23/2024 Generalized anxiety disorder (ICD-10 - F41.1) Assessment and plan reviewed with patient Call for problems with medication, side effects or need for dosage change Compliance issues reviewed Discussed the risks/benefits of this medication Discussed medication side effects Return if symptoms worsen Treatment options reviewed. discussed that it can take weeks to see full therapeutic effects of psychotropic medications. discussed when to seek emergency services. discussed crisis prevention hotline 988. 1. Insomnia and Muscle Spasms - Patient reports taking lorazepam rarely for sleep difficulty due to muscle spasms and tension. - Patient experiences headaches and tension, making relaxation difficult. - Plan: a. Discontinue lorazepam. b. Prescribe hydroxyzine 25mg, up to 3 times daily as needed for anxiety. c. Provide 30-day supply with 90 capsules. 2. Depression and Anxiety - PHQ-9 and ADRIANA-7 scores both 0, indicating no current symptoms. - Patient reports feeling great with no anxiety, depression, or thoughts of self-harm. - Patient states she has found the right medication combination. - Plan: a. Continue current medications: bupropion XL 300mg daily, duloxetine 60mg daily, and aripiprazole 5mg daily. b. Prescribe 90-day supplies for each medication. 3. Follow-up Care - Plan: a. Schedule follow-up appointment in three months. b. Assist patient in securing an appointment upstairs today. 4. Additional Information - Patient denies current use of thyroid medication, hydrochlorothi azide, Monjaro, or Ozempic. - No smoking, marijuana use, drug use, or alcohol consumption reported. - Patient confirms feeling safe at home. 01/06/2025 Generalized anxiety disorder (ICD-10 - F41.1) 01/06/2025 Insomnia due to other mental disorder (ICD-10 - F51.05) 07/23/2024 Primary insomnia (ICD-10 - F51.01) 1. Insomnia and Muscle Spasms - Patient reports taking lorazepam rarely for sleep difficulty due to muscle spasms and tension. - Patient experiences headaches and tension, making relaxation difficult. - Plan: a. Discontinue lorazepam. b. Prescribe hydroxyzine 25mg, up to 3 times daily as needed for anxiety. c. Provide 30-day supply with 90 capsules. 2. Depression and Anxiety - PHQ-9 and ADRIANA-7 scores both 0, indicating no current symptoms. - Patient reports feeling great with no anxiety, depression, or thoughts of self-harm. - Patient states she has found the right medication combination. - Plan: a. Continue current medications: bupropion XL 300mg daily, duloxetine 60mg daily, and aripiprazole 5mg daily. b. Prescribe 90-day supplies for each medication. 3. Follow-up Care - Plan: a. Schedule follow-up appointment in three months. b. Assist patient in securing an appointment upstairs today. 4. Additional Information - Patient denies current use of thyroid medication, hydrochlorothi azide, Monjaro, or Ozempic. - No smoking, marijuana use, drug use, or alcohol consumption reported. - Patient confirms feeling safe at home. 01/06/2025 Major depressive disorder, recurrent, in remission, unspecified (ICD-10 - F33.40) 01/06/2025 Negative depression screening (ICD-10 - Z13.31) 01/06/2025 Encounter for screening for cardiovascular disorders (ICD-10 - Z13.6) 01/06/2025 Josue Huffman is a patient with a history of depression and anxiety who presents for medication management. She reports difficulty sleeping but denies current depression, anxiety, or other psychiatric symptoms. Medication Management Assessment: Patient reports adherence to prescribed medications, though she has been stringing them out since July due to difficulty obtaining appointments. Current regimen includes bupropion 300 mg, duloxetine 60 mg, aripiprazole 5 mg, and as-needed hydroxyzine. Patient denies current depression, anxiety, hallucinations, delusions, or paranoia. She reports difficulty sleeping but attributes this to non-mental health related causes. No suicidal or homicidal ideation reported. Plan: - Continue current medication regimen: - Bupropion - Duloxetine - Aripiprazole - Hydroxyzine (as needed) - Prescriptions sent to [facility] - Follow-up appointment scheduled in 3 months - Patient educated on importance of attending follow-up appointments to maintain continuity of care Insomnia Assessment: Patient reports difficulty sleeping but attributes this to non-psychiatric causes. Further evaluation may be necessary to determine the etiology of sleep disturbances. Plan: - Continue to monitor sleep difficulties - Patient to report any worsening or changes in sleep patterns at next follow-up The note is transcribed using speech recognition software. It is a reflection of a visit with the patient. It might have some inaccuracy, including medication names and transcribing errors, though efforts have been made to correct them. Plan Of Treatment Next Appt Details Provider Name:Belle fernandez, 03/30/2025 03:00:00 PM, [address], [facility] [address], [place], [address], Insurance Providers Payer Name Payer Address Payer Phone Subscriber Number Group Number Insured Name Patient Relationship to Insured Coverage Start Date Coverage End Date [facility] [address] [place] [address] [id number] ILAN GALLAGHER Self - patient is the insured Medical (General) History Medical History History ICD Code Problems: Generalized anxiety disorder Obesity Primary insomnia Recurrent major depression in remission Surgical History Surgery Date(Month/Year) Endometrial ablation (23308) Hysterectomy (18439) Removal of gallbladder (38770) Appendectomy (81506) Cataract surgery (57101)
--- OUTSIDE RECORDS SUMMARY | 2025-01-30 12:12 | XMS_ITS | Encounter Summary ---
Author Organization [facility] Address [address] [place] [address] Care Team Providers Care Body Worker Name Role Phone Erica Portillo MD Primary Care Provider + Encounter Details Date Type Department Care Team (Late st Contact Info) Description 06/17/2007 Outpatient Historical [facility] Maternal and Ground Floor [facility] [address] [place] [address] Jean Tucker MD NO ADDRESS ON FILE Social History Tobacco Use Types Packs/Day Years Used Date Smoking Tobacco: Never Assessed Comments Unknown Sex and Gender Information Value Date Recorded Sex Assigned at Not on file Legal 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:59 AM MOTION PICTURE EQUIPMENT SUPERVISOR Gender Identity Not on file Sexual Orientation Not on file documented as of this encounter Plan of Treatment Not on file documented as of this encounter Visit Diagnoses Not on filedocumented in this encounter Care Teams Body Worker Relationship Specialty Start Date End Date Erica Portillo MD PCP - General 08/23/15 05/01/19 documented as of this encounter
--- OUTSIDE RECORDS SUMMARY | 2025-01-30 12:13 | XMS_ITS | Encounter Summary ---
Author Organization [facility] Address [address] [place] [address] Care Team Providers Care Secy Name Role Phone Erica Portillo MD Primary Care Provider + Encounter Details Date Type Department Care Team (Late st Contact Info) Description 07/05/2007 Outpatient Historical [facility] Maternal and Ground Floor [facility] [address] [place] [address] Jean Tucekr MD NO ADDRESS ON FILE Social History Tobacco Use Types Packs/Day Years Used Date Smoking Tobacco: Never Assessed Comments Unknown Sex and Gender Information Value Date Recorded Sex Assigned at Not on file Legal 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:59 AM CLASS B DRIVER Gender Identity Not on file Sexual Orientation Not on file documented as of this encounter Plan of Treatment Not on file documented as of this encounter Visit Diagnoses Not on filedocumented in this encounter Care Teams Secy Relationship Specialty Start Date End Date Erica Portillo MD PCP - General 08/23/15 05/01/19 documented as of this encounter
--- OUTSIDE RECORDS SUMMARY | 2025-01-30 12:13 | XMS_ITS | Encounter Summary ---
Author Organization [employer] Address [address] [place] [address] Care Team Providers Care Mold Maintenance Technician Name Role Phone Erica Portillo MD Primary Care Provider + Encounter Details Date Type Department Care Team (Latest Contact Info) Description 07/19/2007 Outpatient Historical [facility] Madina Parrish MD NO ADDRESS ON FILE Supervision of Other Normal Social History Tobacco Use Types Packs/Day Years Used Date Smoking Tobacco: Never Assessed Comments Unknown Sex and Gender Information Value Date Recorded Sex Assigned at Not on file Legal 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:59 AM FIELD ENGINEER Gender Identity Not on file Sexual Orientation Not on file documented as of this encounter Plan of Treatment Not on file documented as of this encounter Procedures Procedure Name Priority Date/Time Associated Diagnosis Comments SURFACTANT ALBUMIN FLM II Routine 08/06/2007 10:33 AM FIELD ENGINEER documented in this encounter Results * SURFACTANT ALBUMIN FLM II (08/06/2007 10:33 AM FIELD ENGINEER) SURFACTANT ALBUMIN FLM II 60 55 - 160 mg/g INTERFACE SYSTEM Comment: Reference Range Based on Single < or = 39 Immature 40 - 54 = Caution(Intermediate) > or = 55 Mature called to jessie at 08/06/07 1:24 PM 08/06/2007 10:3 3 AM FIELD ENGINEER us Madina Parrish MD BODY FLUIDS AND STOOLS E dited INTERFACE SYSTEM Refer to clinic/hospital department documented in this encounter Visit Diagnoses Diagnosis Supervision of other normal documented in this encounter Care Teams Mold Maintenance Technician Relationship Specialty Start Date End Date Erica Portillo MD PCP - General 08/23/15 05/01/19 documented as of this encounter
--- OUTSIDE RECORDS SUMMARY | 2025-01-30 12:13 | XMS_ITS | Encounter Summary ---
Author Organization [facility] Address [address] [place] [address] Care Team Providers Care Planer Operator Name Role Phone Erica Portillo MD Primary Care Provider + Encounter Details Date Type Department Care Team (Late st Contact Info) Description 07/30/2007 Outpatient Historical [facility] Maternal and Ground Floor S [facility] [address] [place] [address] Jean Tucker MD NO ADDRESS ON FILE Social History Tobacco Use Types Packs/Day Years Used Date Smoking Tobacco: Never Assessed Comments Unknown Sex and Gender Information Value Date Recorded Sex Assigned at Not on file Legal 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
--- OUTSIDE RECORDS SUMMARY | 2025-01-30 12:13 | XMS_ITS | Clinical Summary ---
Author Organization [facility] Address [address] [place] [address] Phone Care Team Providers Care Sprue Cutting Press Operator Name Role Phone Sarah Nobles MD Unavailable [phone] Arianne Carlisle MD Unavailable [phone] Benji Pierre MD Primary Care Provi will Allergies Active Allergy Reactions Criticality Noted Date Comments Codeine Hives,Rash,Itching Reaction: Hives, Skin Rash, , Reaction: Itching, Medications buPROPion XL (WELLBUTRIN XL) 300 mg 24 hr tablet Take 1 tablet (300 mg total) by mouth every morning 30 tablet 5 2 Active escitalopram (LEXAPRO) 20 mg tablet TAKE 1 TABLET(20 MG) BY MOUTH DAILY 90 tablet 1 2 Active ARIPiprazole (ABILIFY) 5 mg tablet Take 1 tablet (5 mg total) by mouth daily 30 tablet 5 2 Active LORazepam (ATIVAN) 1 mg tablet Take 1 tablet (1 mg total) by mouth 2 (two) times a day as needed for anxiety 60 tablet 2 3 Active Ozempic 2 mg/dose (8 mg/3 mL) pen injector injection Inject 2 mg under the skin once a week Active betamethasone dipropionate (DIPROSONE) 0.05 % ointment Apply topically 2 (two) times a day 45 g 3 4 Active Active Problems Problem Noted Date Diagnosed Date BMI 28.0-28.9,adult 01/03/2024 Assessment & Plan (01/03/2024 3:00 PM CDT): BMI Follow-up includes: nutrition counseling, exercise counseling, and education provided. Physical exam, annual 01/03/2024 Assessment & Plan (01/03/2024 3:42 PM CDT): Patient comes in today for a routine physical exam. Health maintenance objectives were discussed and exam performed as noted. Screening for colon cancer 01/03/2024 Immunity status testing 01/03/2024 Assessment & Plan (01/03/2024 3:41 PM CDT): Checking immunity to rubella, rubeola, mumps, hep B and varicella. Moderate episode of recurrent major depressive d isorder 03/30/2022 Assessment & Plan (01/03/2024 3:42 PM CDT): Stable. Continue current medications. Follows with Psych in [place]. Assessment & Plan (03/30/2022 8:02 AM CDT): Worsening depression Continue bupropion 300 mg daily. If new medication is not covered will increase to 450 mg daily. Escitalopram 20 mg daily. Taking lorazepam 1 mg nightly as needed. DC the Seroquel. Start lumateperone 42 mg daily Instructed patient she needs to find a psychiatrist. Psychophysiological insomnia 03/30/2022 Assessment & Plan (01/03/2024 3:42 PM CDT): Stable. Continue current medications. Follows with Psych in [place]. Assessment & Plan (03/30/2022 8:02 AM CDT): Patient has a history of bipolar and depression. Not sleeping. Taking lorazepam 1 mg nightly to help her sleep. On multiple medications for the depression and bipolar. He has a psychiatrist. Acquired hypothyroidism 01/07/2020 Assessment & Plan (01/03/2024 3:41 PM CDT): Stable. Patient is not taking levothyroxine. TFTs today. Assessment & Plan (10/07/2020 12:01 PM OIL FIELD OPERATOR): Feeling fatigued. Check TSH and free T4 on her current levothyroxine dose. Assessment & Plan (02/26/2020 12:36 PM CDT): New start levothyroxine 50 mcg in December. TFTs today. Patient has not had improvement in her fatigue or hypothyroidism symptoms. Assessment & Plan (01/07/2020 4:37 PM CDT): TSH from 09/07 modestly elevated. Generally, this would be monitored, but symptoms of chronic fatigue and continued weight gain despite escalation of physical activity are compelling enough to trial levothyroxine. Start levothyroxine 50 micrograms. Discussed importance of dosing 1 hour after and before any other medications or food. We agree it is most convenient for her to take it 1 hour after dinner as she takes no bedtime medications. Upon follow-up for annual exam, will repeat thyroid function tests. Migraine 03/14/2018 Lung nodule 12/14/2017 Assessment & Plan (01/03/2024 3:41 PM CDT): Refer for follow-up CT. Patient states that she followed with Pulmonary in [place] several years ago and they told her it was of no concern. Assessment & Plan (02/26/2020 12:04 PM CDT): 12/[address] chest 11 mm left lower lobe lung nodule incidently found. Patient was referred to Pulmonary at that time and lost to follow up. Will refer today. Non-smoker but second hand smoke exposure. Bipolar affective disorder, currently depressed, moderate 03/09/2017 Overview (01/03/2024): Follows with Psych in [place]. Assessment & Plan (01/03/2024 3:14 PM CDT): Stable. Continue current medications. Follows with Psych in [place]. Assessment & Plan (03/30/2022 8:01 AM CDT): Continue bupropion 300 mg daily. Escitalopram 20 mg daily. Taking lorazepam 1 mg nightly as needed. DC the Seroquel. Start lumateperone Instructed patient she needs to find a psychiatrist. Assessment & Plan (03/16/2022 11:39 AM CDT): Continue take bupropion 300 mg daily. Escitalopram 20 mg daily. Taking lorazepam 1 mg twice a day as needed. Restart Seroquel 150 mg extended release. Need to find new psychiatrist. Assessment & Plan (02/26/2020 12:36 PM CDT): Patient was referred to Dr. Aldair Shi in 2016 and states she could not get in for an appt. Refer patient to Psych. Wellbutrin XL 150 mg daily. Assessment & Plan (08/16/2017 2:26 PM OIL FIELD OPERATOR): Improved with addition of Seroquel. Explained to patient I would still like for her to establish with psychiatrist. Patient is referred to Dr. Aldair Shi. Assessment & Plan (03/09/2017 12:21 PM CDT): Patients Psych has retired and she can not get into a new one for 6 months. Start Seroquel tapering up by 50 mg per day until at 300 mg per day. Estab care with Psych. Follow up here in 6 weeks if unable to get in with Psych before then. Any suicidal ideations call 911 or go to Ed. Pt. Verbalized understanding. Hypercholesterolemia 06/09/2014 Assessment & Plan (01/03/2024 3:41 PM CDT): Stable. Healthy lifestyle. Allergic rhinitis 05/04/2012 Resolved Problems Problem Noted Date Diagnosed Date Resolved Date Screening mammogram, encounter for 01/03/2024 01/03/2024 Open dislocation of finger of right hand 12/07/2021 01/03/2024 ECHO virus infection 04/24/2021 024 Overview (04/24/2021): History of [facility] cardiology consultation with intermediate teacher advice that infectious illness with compromise in immunity Preop exam for internal medicine 10/07/2020 01/03/2024 Assessment & Plan (10/07/2020 12:00 PM OIL FIELD OPERATOR): Scheduled for cataract extraction next week. She is an acceptable candidate for low risk cataract extraction. No further cardiac testing is required. Preop H&P forms completed. Abdominal distension 10/07/2020 024 Assessment & Plan (10/07/2020 12:12 PM OIL FIELD OPERATOR): Intermittent abdominal distension, without pain or cramping. Given copy of Fodmap diet to try for 3 weeks to see if she can identify any foods that are triggering distension. If no change on the FODMAP diet she will call the office will plan to image her abdomen. She has family history of ovarian cancer in her niece and her grandmother. Mother had pancreatic cancer. Class 1 obesity due to exces s calories with serious comorbidity and body mass index (BMI) of 32.0 to 32.9 in adult 02/26/2020 01/03/2024 Assessment & Plan (03/29/2022 3:03 PM CDT): BMI Follow-up includes: nutrition counseling, exercise counseling and education provided. Assessment & Plan (03/15/2022 5:09 PM CDT): BMI Follow-up includes: nutrition counseling, exercise counseling and education provided. Assessment & Plan (10/07/2020 11:13 AM OIL FIELD OPERATOR): BMI Follow-up includes: nutrition counseling, exercise counseling and education provided. Assessment & Plan (02/26/2020 11:36 AM CDT): BMI Follow-up includes: nutrition counseling, exercise counseling and education provided. Screening for colon cancer 02/26/2020 0 01/03/2024 Overview (02/26/2020): 09/22/16 per maddy Blunt, repeat in 5 years due to family hx. Assessment & Plan (02/26/2020 11:53 AM CDT): 09/22/16 per maddy Blunt, repeat in 5 years due to family hx. Screening mammogram, encounter for 02/26/2020 01/03/2024 Assessment & Plan (02/26/2020 12:38 PM CDT): Patient has mammogram scheduled. Establishing care with shahana peterson, encounter for 01/07/2020 02/26/2020 Preventative health care 09/19/201804/2020 Assessment & Plan (09/19/2018 11:10 AM OIL FIELD OPERATOR): Patient here to today for physical exam. The patient was evaluated and all health maintenance objectives were discussed and addressed. Bipolar affective disorder in remission 12/13/2017 02/26/2020 Uterine fibroid 12/13/2017 02/26/2020 Generalized abdominal pain 12/12/2017 0 02/26/2020 Overview (12/14/2017): Added automatically from request for surgery [id number] Snoring 08/16/2017 02/26/2020 Assessment & Plan (08/16/2017 2:26 PM OIL FIELD OPERATOR): Refer to Dr. Holder for evaluation. Chronic fatigue 03/28/2017 01/03/2024 Assessment & Plan (02/26/2020 12:37 PM CDT): Refer for sleep study. Assessment & Plan (01/07/2020 4:35 PM CDT): History snoring, chronic fatigue, frequent headaches and body habitus raises high degree suspicion for obstructive sleep apnea. This prompted a home sleep study. Unfortunately, this study was nondiagnostic as only about 2 hours of data was recorded. That being said, during this 2 hours, she did have hypoxic events. She continues to have fatigue and headaches. We have agreed that when I see her in person, we will coordinate a repeat sleep study. Assessment & Plan (03/28/2017 2:26 PM CDT): Will assess response to [place] Thyroid. Subclinical hypothyroidism 03/27/2017 0 01/07/2020 Assessment & Plan (03/28/2017 2:29 PM CDT): 46 years old female seen in follow-up for subclinical hypothyroidism. She was started on levothyroxine 50 microgram daily in October 2016 For TSH of 4.93. Thyroid function has improved, recent TSH was 1.83. She remains symptomatic t despite biochemical euthyroidism. Discuss changing to Synthroid but cost is an issue. Trial of [place] thyroid 30 grams daily. Will repeat TSH in 2 and 4 months. TSH will 0.45-2.5. Follow-up in 4 months. BMI 30.0-30.9,adult 03/09/2017 02/26/20 Assessment & Plan (08/28/2018 4:26 PM OIL FIELD OPERATOR): BMI Follow-up includes: nutrition counseling, exercise counseling and education provided. Assessment & Plan (03/28/2017 2:20 PM CDT): BMI Follow-up includes: nutrition counseling and exercise counseling. Assessment & Plan (03/09/2017 12:18 PM CDT): BMI Follow-up includes: nutrition counseling, exercise counseling and education provided. Sinus complaint 03/09/2017 02/26/2020 Assessment & Plan (03/09/2017 12:19 PM CDT): Start antibiotic and consider medrol dose pack. Irrigate sinuses with saline. If no improvement or symptoms progress contact office. Abnormal finding on thyroid function test 09/25/2016 01/07/2020 Overview (11/25/2016): Abnormal thyroid function test Polyuria 09/18/2016 02/26/2020 Overview (11/25/2016): Polyuria Galactorrhea not associated with childbirth 09/18/2016 02/26/2020 Overview (11/25/2016): Galactorrhea Vitamin D deficiency 09/18/2016 024 Overview (11/25/2016): Vitamin D deficiency Cobalamin deficiency 09/18/2016 024 Overview (11/25/2016): B12 deficiency Migraine 01/03/2014 02/26/2020 Overview (11/22/2016): Migraine headache Well woman exam with routine gynecological exam 08/11/2013 01/03/2024 Assessment & Plan (02/26/2020 12:37 PM CDT): Patient comes in today for a routine physical exam. Health maintenance objectives were discussed and exam performed as noted. Cervical high risk human pap illomavirus (HPV) DNA test positive 08/11/2013 01/03/2024 Overview (04/24/2021): 2013 ASCUS on Pap with reassuring colposcopy S/P endometrial ablation 08/11/2013 Overview (04/24/2021): Marginal placenta previa History of uterine fibroid 08/11/2013 0 01/03/2024 Overview (04/24/2021): Marginal, CS 1 cm anterior by US Anxiety and depression 05/09/201201/02 Overview (04/24/2021): Depressive disorder Assessment & Plan (03/16/2022 11:38 AM CDT): Patient currently taking bupropion and Lexapro. Lorazepam 1 mg b.i.d. as needed. She reports that this is not working at all for her. She is wanting to know what she can do. Patient was previously on Seroquel 300 mg extended release daily wondering if she should go back to that. Will prescribe Seroquel 150 mg extended release. Patient is to follow-up in 2 weeks. Requesting an increase on the lorazepam will not increase that. Patient needs to find new psychiatrist. Assessment & Plan (01/07/2020 4:39 PM CDT): Clinically euthymic. Excellent response to Lexapro. She does endorse periodic situational anxiety for which she has been prescribed lorazepam 0.5 milligrams p.r.n.. She does not find therapeutic benefit with 0.5 milligram so generally takes two at a time for total 1 milligram. That being said, she requires infrequent dosing. States that previous prescriptions of quantity 60 have lasted over three months. Continue Lexapro 20 milligrams q.d. Will change dose of lorazepam to 1 milligram with instructions to dose b.i.d. p.r.n. Elevated TSH 05/09/2012 01/03/2024 Arthralgia of multiple joints 05/06/2012 01/03/2024 LAEJANDRO (acute kidney injury) 05/04/2012 Dehydration 05/04/2012 01/03/2024 Nausea and vomiting 12/27/2011 01/03/20 24 Assessment & Plan (12/13/2017 2:32 PM CDT): Advance diet as tolerated, EGD in am Anemia 12/27/2011 01/03/2024 Severe headache 12/27/2011 01/03/2024 Leukopenia 12/27/2011 01/03/2024 Right middle lobe pneumonia 12/27/2011 01/03/2024 Transaminitis 12/27/2011 01/03/2024 Abnormal EKG 10/19/2011 01/03/2024 Pre-syncope 10/19/2011 01/03/2024 PVCs (premature ventricular contractions) 10/19/2011 01/03/2024 Bradycardia 01/19/2011 01/03/2024 Overview (04/24/2021): Bradycardia Assessment & Plan (01/07/2020 4:32 PM CDT): Resting bradycardia. Heart rate increases appropriately with activity. Syncope 01/19/2011 01/03/2024 Assessment & Plan (12/13/2017 2:32 PM CDT): ? Orthostatic, work up by primary team Chest pain 01/19/2011 01/03/2024 Fall 01/19/2011 01/03/2024 RUQ pain 09/13/2009 01/03/2024 Assessment & Plan (12/13/2017 2:32 PM CDT): Work up negative, normal liver function and pancreatic enzymes, no leukocytosis. ? Gastritis, ulcer but no gib. Will proceed with EGD tomorrow, CT scan without diverticulitis. Supportive care Gastritis without bleeding 0 02/26/2020 Encounters Date Type Department Care Team Description 01/13/2025 Orders Only [facility] [address] [place] [id number] Benji Pierre MD 01/13/2025 Nurse Triage [facility] [address] [place] [address] [address] [place] [address] Benji Pierre MD from Last 3 Months Immunizations Immunization Administration Dates Next Due Influenza, Quadrivalent, Spl it, Intramuscular 07/20/2016,06/20/2009 Influenza, Quadrivalent, Spl it, Preservative Free, Intramuscular 09/04/2019,06/22/2015 Influenza, Trivalent, Preser vative Free, Intramuscular 06/14/2012 Influenza, Trivalent, Recomb inant, Egg Free, Preservative Free, Antibiotic Free, IM (FLUBLOK) 06/30/2014 Influenza, Unspecified 05/20/2023,2020(Deferred: Patient Refused),05/20/2018,08/16/2017(Deferre d: Patient decision),06/20/2009 Pneumococcal Conjugate PCV 13 12/29/2011 Pneumococcal Polysaccharide PPV23 12/29/2011 Tdap 12/01/2021 Surgical History Surgery Date Site/Laterality Comments ENDOMETRIAL ABLATION endometrial ablation OTHER SURGICAL HISTORY Atrial fibrillation: medical treatment APPENDECTOMY KNEE ARTHROSCOPY W/ LATERAL RELEASE BREAST SURGERY Biopsy left breast SECTION 08/07/07 CHOLECYSTECTOMY ABDOMINAL SURGERY see above LUMBAR PUNCTURE WO INJECTION, DIAGNOSTIC 05/06/2012 N/A Medical History Medical History Date Comments Atrial fibrillation (HCC) 09/2011 Atrial fibrillation; Outcome: referal Hx Other Medical 1993 knee surgery; L aterality: right Hx Other Medical 2006 - sectionc Hx Other Medical 2006 c section Hx Other Medical 1999 appendectomy Hx Other Medical 2004 gallbladder rem geetha Hx Other Medical 1991 eye surgery; [place] terality: right Hx Other Medical 2004 lumpectomy Hx Other Medical Bipolar Diverticulosis of intestine 08/2016 Dive rticular disease Subclinical hypothyroidism Bipolar disorder (HCC) Anxiety 2017 Cataract 09/03/20 Depression Migraines Family History Medical History Relation Name Comments Heart attack Brother 1 Jared Heart attack Brother 2 Itz Hypertension Brother 3 Jared P. Diabetes Father Bill Sr. Hearing loss Father Bill Sr. Heart attack Father Bill Sr. Heart disease Father Bill Sr. Cardiovascular disease; Kidney failure Father Bill Sr. Renal failure ; Ovarian cancer Maternal Grandmother Cance r, ovarian; Cancer Mother Flois Colon polyps Mother Flois Colon polyps; Hearing loss Mother Flois Pancreatic cancer Mother Flois Cancer, pa ncreas; Other Other 1 Family history of Cancer -pancreatic; Ovarian cancer Other 2 Family histor y of Cancer -ovarian; Coronary artery disease Other 3 Fami ly history of Coronary artery disease, premature; Coronary artery disease Other 4 Fami ly history of Coronary artery disease; Breast cancer Other 5 Cancer, breast ; Other Other 6 No family histo ry of Cancer, colon; Other Other 7 No family histo ry of Celiac disease; Other Other 8 No family histo ry of Coronary artery disease; Other Other 9 No family histo ry of Ulcerative colitis; Early Paternal Grandfather Grandpa Heart attack Paternal Grandfather Grandpa Heart disease Paternal Grandfather Grandpa Relation Name Status Comments Brother 1 Jared Brother 2 Itz Brother 3 Jared P. Father Bill Sr. Maternal Grandmother Mother Flois Other 1 Other 2 Other 3 Other 4 Other 5 Other 6 Other 7 Other 8 Other 9 Paternal Grandfather Grandpa Social History Tobacco Use Types Packs/Day Years Used Date Smoking Tobacco: Never Smokeless Tobacco: Never Tobacco Cessation:Counseling Given: Not Answered Alcohol Use Standard Drinks/Week Comments No 0 (1 standard drink = 0.6 oz pur e alcohol) PHQ-2 Answer Date Recorded PHQ-2 Total Score (If total score is 3 or more points, staff should administer the PHQ-9) 0 01/03/2024 Personal Safety Answer Date Recorded Have you ever been in or are you currently in a harmful physical or emotional relationship or is someone making you feel afraid or unsafe? Denies 05/25/2023 Comments No Sex and Gender Information Value Date Recorded Sex Assigned at Not on file Legal Sex Female 1:10 AM OIL FIELD OPERATOR Gender Identity Not on file Sexual Orientation Not on file Obstetrics History Last Filed Vital Signs Vital Sign Reading Time Taken Comments Blood Pressure 96/60 01/03/2024 2:52 PM CDT Pulse 66 01/03/2024 2:52 PM CDT Temperature 36.7 C (98.1 F) 01/03/2024 2:52 PM CDT Respiratory Rate 16 01/03/2024 2:52 PM CDT Oxygen Saturation 98% 01/03/2024 2:52 PM CDT Inhaled Oxygen Concentration - - Weight 76 kg (167 lb 9.6 oz) 01/03/2024 2:52 PM CDT Height 163.8 cm (5' 4.5) 01/03/2024 2:52 PM CDT Body Mass Index 28.32 01/03/2024 2:52 PM CDT Plan of Treatment Health Maintenance Due Date Last Done Comments Cervical Cancer Screening 1969 Hepatitis B Screening 1987 Zoster Vaccine (1 of 2) 2019 Colon Cancer Screening-Colonoscopy 09/22/2021 09/22/2016 Breast Cancer Screening-Mammogram 01/19/2024 01/18/2023, 05/25/2022, 03/01/2021, Additional history exists Depression Screening 01/02/2025 01/03/2024, 10/07/2020, 02/26/2020, Additional history exists Regular Well Visit/Exam 18-64 01/02/2025 01/03/2024, 02/26/2020, 08/28/2018 Influenza Vaccine (Season Ended) 2025 05/20/2023, 09/04/2019, 05/20/2018, Additional history exists DTaP/Tdap/Td Vaccine (2 - Td or Tdap) 12/02/2031 12/01/2021 Pneumococcal vaccine <65 Aged Out 12/29/2011, 12/18 No longer eligible based on patient's age to complete this topic Hepatitis C Screening Completed 03/26/2014 Colon Cancer Screening-CT Colonography Discontinued 09/22/2016 Colon Cancer Screening-DNA Stool Discontinued 09/22/2016 Colon Cancer Screening-FIT Discontinued 09/22/2016 Colon Cancer Screening-Sigmoidoscopy Discontinued 09/22/2016 Procedures Procedure Name Priority Date/Time Associated Diagnosis Comments SCAN - RADIOLOGY/IMAGING 01/13/2025 SCREENING MAMMOGRAM BILATERAL W ULISES Schedule Routine, Read Routine (OP Routine) 01/18/2023 COLONOSCOPY REPORT 09/22/2016 SERUM HEPATITIS PANEL Routine 03/26/2014 5:31 AM CDT from Last 3 Months or Most Recently Relevant to Health Maintenance Results * SCAN - RADIOLOGY/IMAGING (01/13/2025) Anatomical Region Laterality Modality Other Benji Pierre MD Fin al Result * Screening Mammogram Bilateral W Ulises (01/18/2023) Anatomical Region Laterality Modality Breast Bilateral Mammography Historical Provider IMG MAMMO PROCEDURES Lalitha l Result * COLONOSCOPY REPORT (09/22/2016) Anatomical Region Laterality Modality Other Narrative 09/22/2016 Ordered by an unspecified provider. Historical Provider GI PROCEDURE ORDERABLES F inal Result * Serum Hepatitis panel (03/26/2014 5:31 AM CDT) HAV ab, IgM NON-REACTI VE NON-REACTI VE HISTORICAL RESULTS HBV surface ag NON-REACTI VE NON-REACTI VE HISTORICAL RESULTS HBV core ab, IgM NON-REACTI VE NON-REACTI VE HISTORICAL RESULTS HCV ab NON-REACTI VE NON-REACTI VE HISTORICAL RESULTS Hepatitis signal to cutoff ratio 0.11 <1.00 HISTORICAL RESULTS Serum 03/26/2014 5:31 AM CDT Narrative HISTORICAL RESULTS - 03/30/2014 3:00 PM CDT Test performed at [facility] [address] [place] [address] Director: ARIANNE HOLT DO,MPH us Historical Provider LAB BLOOD ORDERABLES Lalitha tovar Result HISTORICAL RESULTS from Last 3 Months or Most Recently Relevant to Health Maintenance Insurance [employer] WORK[employer] COMPENSATION GENERIC WORKERS COMPENSATION GENERIC Advance Directives For more information, please contact: [phone] * Full Code (Latest Code Status on File) Date Activated Date Inactivated Comments 12/13/2017 2:11 AM 12/14/2017 11:20 PM Care Teams Sprue Cutting Press Operator Relationship Specialty [place] [id number] [facility] [address] [place] [address] PCP - General Internal Medicine 01/07/20 Sarah Nobles MD Consulting Physician Gastroenterology 12/14/17 [place] [id number] [facility] [address] [place] [address] Consulting Physician Pulmonary Disease 12/14/17
--- OUTSIDE RECORDS SUMMARY | 2025-01-30 12:13 | XMS_ITS | Clinical Summary ---
Author Organization [facility] Address [address] [place] [address] Phone Care Team Providers Care Newspaper Deliverer Name Role Phone Unavailable Primary Care Provider Unavailabl e Allergies Active Allergy Reactions Criticality Noted Date Comments Codeine Hives,Rash,Itching,Hallucination High Medications topiramate (TOPAMAX) 25 mg Oral tablet Take 1 Tab by mouth see administration instructions. Take 25 mg at bedtime for 1 week then 50 mg at bedtime for 1 week then 75 mg at bedtime for 1 week then cont at 100 mg at bedtime 40 Tab 0 2 Active hydromorPHONE (DILAUDID) 2 mg Oral tablet Take 1 Tab by mouth every 4 hours as needed for Pain. 30 Tab 0 2 Active carisoprodol (SOMA) 350 mg Oral tablet Take 1 Tab by mouth every 12 hours as needed for Spasm. 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 30 Tab 0 2 Active venlafaxine SR 24 hour (EFFEXOR XR) 150 mg capsule 3 Active Active Problems Patient Care Coordination No te Formatting of this note migh t be different from the original. Public Area Supervisor: Dr. Alec Rome ( [facility] ) Problem Noted Date Diagnosed Date History of delivery 08/11/2013 Overview (08/11/2013): Marginal placenta previa History of placenta previa 08/11/2013 Overview (08/11/2013): Marginal, CS S/P endometrial ablation 08/11/2013 Cervical high risk human pap illomavirus (HPV) DNA test positive 08/11/2013 Overview (08/11/2013): 2012 ASCUS on Pap with reassuring colposcopy History of uterine fibroid 08/11/2013 Overview (08/11/2013): 1 cm anterior by US Well woman exam with routine gynecological exam 08/11/2013 Elevated TSH 05/09/2012 Anxiety and depression 05/09/2012 Arthralgia of multiple joints 05/06/2012 Headache(784.0) 05/04/2012 Allergic rhinitis 05/04/2012 ALEJANDRO (acute kidney injury) 05/04/2012 Dehydration 05/04/2012 Right middle lobe pneumonia 12/27/2011 Transaminitis 12/27/2011 Severe headache 12/27/2011 Anemia 12/27/2011 Leukopenia 12/27/2011 Nausea and vomiting 12/27/2011 PVCs (premature ventricular contractions) 2011 Abnormal EKG 10/19/2011 Pre-syncope 10/19/2011 Chest pain 01/19/2011 Syncope 01/19/2011 Fall 01/19/2011 Bradycardia 01/19/2011 RUQ pain 09/13/2009 ECHO virus infection Overview (08/11/2013): History of [facility] cardiology consultation with bed bug exterminator advice that infectious illness with compromise in immunity Immunizations Immunization Administration Dates Next Due (PNEUMOVAX 23)(50 YRS UP) PN EUMOCOCCAL POLYSACCHARIDE (PPV23) 0.5 ML, IM 12/29/2011 Influenza A (H1N1) Vaccine IM 06/20/2009 Influenza Seasonal Unspecified Formulation IM Family History Medical History Relation Name Comments Heart Disease Brother 1 jennifer Hypertension Brother 1 jennifer Heart Disease Brother 2 marya Diabetes Father Heart Disease Father Hypertension Father Colon Cancer Maternal Grandfather Cancer Maternal Grandmother Ovarian Cancer Maternal Grandmother Cancer Mother Pancreatic Cancer Mother Breast Cancer Other Cancer Other Heart Disease Paternal Grandfather Hypertension Paternal Grandfather Healthy Son 1 Other Son 2 Relation Name Status Comments Brother 1 jennifer Alive Brother 2 marya Father Alive Maternal Grandfather Maternal Grandmother Mother Other Paternal Grandfather Son 1 Alive Son 2 Alive Social History Tobacco Use Types Packs/Day Years Used Date Smoking Tobacco: Never Smokeless Tobacco: Never Alcohol Use Standard Drinks/Week Comments No 0 (1 standard drink = 0.6 oz pur e alcohol) Comments No Sex and Gender Information Value Date Recorded Sex Assigned at Not on file Legal 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:59 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 Gender Identity Not on file Sexual Orientation Not on file Occupation Industry Job Start Date Job End Date Not on file Not on file Not on file Not on file Last Filed Vital Signs Vital Sign Reading Time Taken Comments Blood Pressure 107/73 08/11/2013 3:24 PM PATHOLOGIST ASSISTANT Pulse 71 08/11/2013 3:24 PM PATHOLOGIST ASSISTANT Temperature 36.3 C (97.3 F) 05/09/2012 2:49 PM CDT Respiratory Rate 16 05/09/2012 2:49 PM CDT Oxygen Saturation 97% 05/09/2012 2:49 PM CDT Inhaled Oxygen Concentration - - Weight 76.8 kg (169 lb 6.4 oz) 08/11/2013 3:24 P M PATHOLOGIST ASSISTANT Height 170.2 cm (5' 7) 08/11/2013 3:24 PM PATHOLOGIST ASSISTANT Body Mass Index 26.53 08/11/2013 3:24 PM PATHOLOGIST ASSISTANT Plan of Treatment Health Maintenance Due Date Last Done Comments DTAP/TDAP/TD VACCINES (1 - Tdap) 1988 HEPATITIS B VACCINES (1 of 3 - 19+ 3-dose series) 1988 BREAST CANCER SCREENING 04/09/2014 04/09/20 13 (Previously completed), 03/03/2013 FIT-DNA Q 3 years 2014 FIT/FOBT Q 1 year 2014 Flex Sig/CT Colonography Q 5 years 2014 PAP SMEAR 08/11/2016 08/11/2013, 08/11/2013 CERVICAL CANCER SCREENING 08/11/2018 HPV/Cotest (21-29) 08/11/2018 08/11/2013 HPV/Cotest (30-65) 08/11/2018 08/11/2013 ZOSTER VACCINE (1 of 2) 2019 COLORECTAL SCREENING 09/11/2019 09/11/2009 Colorectal Cancer Screening 09/11/2019 INFLUENZA VACCINE (#1) 2024 06/20/2009 Procedures Procedure Name Priority Date/Time Associated Diagnosis Comments CERV/VAG CYTOPATH, THIN PREP ARMATURE AND ROTOR WINDER AND HPV Routine 08/11/2013 3:43 PM PATHOLOGIST ASSISTANT Well woman exam with routine gynecological exam Cervical high risk human papillomavirus (HPV) DNA test positive from Last 3 Months or Most Recently Relevant to Health Maintenance Results * CERV/VAG CYTOPATH, THIN PREP ARMATURE AND ROTOR WINDER AND HPV (08/11/2013 3:43 PM PATHOLOGIST ASSISTANT) PAP INTERP Negative for intraepithelial lesion or malignancy. [facility] Comment: Performed by [facility], [address] [place] [address] CYTOLOGY INFECTION Fungal organisms morphologically consistent with Gay spp. [facility] Director Of Operations For Therapy Pap Comment This Pap test has been evaluated with computer assisted technology. [facility] ADEQUACY: Satisfactory for evaluation. Endocervical/reed sformation zone component present. Age and/or menstrual status not provided [facility] CLINICAL INFORMATION SCREENING [facility] SOURCE [employer] [facility] PREV PAP: Information not provided [facility] FUNERAL CAR DRIVER: LYN JAMES(ASCP) [facility] LAST MENSTRUAL PERIOD Information not provided [facility] PREV BX: Information not provided [facility] HPV HIGH RISK DNA DETECTION NOT DETECTED NOT DETECTED [facility] Comment: Tested for high risk types 16,18,31,33,35,39,45,51,52, 56,58,59,68. The analytical performance characteristics of this assay, when used to test SurePath or vaginal specimens, have been determined by [facility]. Methodology: Hybrid Capture with Signal Amplification. Lab test performed by: [facility] [address] [place] [address] JOSE YODER MD [employer] 08/11/2013 3:43 PM PATHOLOGIST ASSISTANT 08/12/2013 3:46 PM PATHOLOGIST ASSISTANT Comment:ENDOCERVICAL Narrative [facility] - [facility] - 08/21/2013 6:21 PM PATHOLOGIST ASSISTANT ECC us Madina Parrish MD PATHOLOGY/CYTOLOGY ORDER PETTY Edited Result - Final [facility] CLIA# [id number] [address] [place] [address] from Last 3 Months or Most Recently Relevant to Health Maintenance Advance Directives For more information, please contact: [phone] * Full Code (Latest Code Status on File) Date Activated Date Inactivated Comments 05/05/2012 12:05 AM 05/09/2012 6:06 PM * Full Code Date Activated Date Inactivated Comments 05/04/2012 9:00 PM 05/05/2012 12:05 AM * Full Code Date Activated Date Inactivated Comments 12/27/2011 3:51 PM 12/29/2011 3:19 PM * Full Code Date Activated Date Inactivated Comments 12/27/2011 3:49 PM 12/27/2011 3:51 PM * Full Code Date Activated Date Inactivated Comments 12/12/2011 2:11 PM 12/12/2011 8:23 PM
--- OUTSIDE RECORDS SUMMARY | 2025-01-30 12:13 | XMS_ITS | Encounter Summary ---
Author Organization [email or web address] Address 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
--- OUTSIDE RECORDS SUMMARY | 2025-01-30 12:13 | XMS_ITS | Data Portability ---
Author Organization [facility] [place] Address [address] [place] [address] Care Team Providers Care Sheather Name Role Phone AKIKO ROBLES Primary Care Provider Assessment Encounter Date Assessment Date Assessment LastModified by Organization Details LastModified Time 03/22/2024 03/22/2024 Annual gynecological exam performed. Patient will come back in a year unless there are new symptoms. Not available 03/22/2024 11:53:48 Plan of Treatment Reminders Order Date Submit Date Provider Last Modified By Organization Details Last Modified Time Details Appointments None recorded. Lab None recorded. Referral None recorded. Procedures None recorded. Surgeries None recorded. Imaging None recorded. Medication Orders Zepbound 5 mg/0.5 mL subcutaneou s pen injector 2024 025 [facility] #[id number], [address], [place], [id number], 5 12:57:19 phentermine 30 mg capsule 2023 024 [facility] #[id number], [address], [place], [id number], 4 18:12:52 topiramate 50 mg tablet 2023 024 [facility] #[id number], [address], [place], [id number], 4 18:12:53 Ozempic 2 mg/dose (8 mg/3 mL) subcutaneou s pen injector 2023 024 [place] [address] [facility] #[id number], [address], [place], [id number], 4 16:40:35 Ozempic 2 mg/dose (8 mg/3 mL) subcutaneou s pen injector 2023 024 [place] [address] [facility] #[id number], [address], [place], [id number], 4 16:40:35 Ozempic 2 mg/dose (8 mg/3 mL) subcutaneou s pen injector 2022 023 [place] [address] [facility] #92108, [address], [place], [id number], 4 16:40:35 Patient TargetsNo targets recorded. Patient InstructionsNo instructions recorded. Reason for Referral None Reported. Results Created Date Observation Date Name Description Value Unit Range Abnormal Flag Note LastModifiedBy Organization Detail LastModifiedTime 03/24/20 24 03/24/2024 IMAGE GUIDE D PAP AND HPV REGAR DLESS image guided Pap, HPV regardless of Pap result SEE RESULT S BELOW CASE REPOR T: Cytol ogy Gynec ologi terrence Repor t Case: [id number] Autho josé luis mota Provi will: Non-S taff, Physi jason Colle cted: 03/24 0915 Order ing Locat ion: [place] [facility] Recei juliana: 03/25 0624 First Scree n: Sherm an, Vanessa Speci men: Scree anna Pap - Image d, Cervi x STATE MENT OF ADEQU ACY: Satis facto ry for evalu ation Trans forma tion zone compo nent canno t be defin itive ly ident ified due to the prese nce of atrop hy or other hormo nal jackson es ----- ----- ----- ----- ----- ----- ----- ----- ----- ----- ----- ----- ----- ----- ----- ----- ----- ---- FINAL DIAGN OSIS: Negat william for Intra epith elial Tory fagan or Navya maciel (NIL) . Atrop hic cell shanti mcpherson. Elect ammy hook d by Vanessa Silva on 2023 at 12:51 PM ----- ----- ----- ----- ----- ----- ----- ----- ----- ----- ----- ----- ----- ----- ----- ----- ----- ---- HPV RESUL TS: HPV mRNA E6/E7 : No HPV mRNA Detec veronica NOTE: This high risk HPV mRNA assay detec ts fourt een high- risk HPV types (16, 18, 31, 33, 35, 39, 45, 51, 52, 56, 58, 59, 66, 68) witho ut diffe renti ation . COMME NT: This speci men was revie wed by a Cytot echno logis t and/o r Patho logis t (as indic ated in this repor t) after evalu ation using the Thinp rep Imagi ng Syste m. CLINI TERRENCE INFOR MATIO N: Menst rual Statu s: LMP (if appli cable ): 008 Clini terrence Histo ry/Pr eviou s Pap: Type of Neopl sanjana (if appli cable ): Signi fican t Clini terrence Findi ngs: Other Histo ry: Hormo will (if appli cable ): PAP EDUCA DARY L NOTE: The Pap Test is a scree anna test with an inher ent false negat william rate. Liqui d-bas ed sampl ing may decre ase, but will not elimi arik, false negat william resul ts. A negat william resul t does not precl ude the prese nce and/o r devel opmen t of disea se, since the prese nce of abnor mal cells in the sampl e depen ds on the locat ion of the lesio n and sampl ing techn ique. Pearl nued regul ar scree anna is the best metho d of cance r preve ntion . If repor veronica cytol ogic findi ng do not corre late with physi terrence and/o r histo rical findi ngs, furth er inves tigat ion is recom landen d, as clini melanie jaime nted. Not Available [facility] (Lab) [address], [place], [address], 03/29/2024 13:55:01 Result Notes None recorded. 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 16:45:27 Migraine [id number] Completed 201712/30/2020 Migraine; Recorded Elsewhere : No Locati on: [facility] So urce: EHR Chron ic: N Practic e ID: [id number] Bill able Time: 02:00:00 PM Katie Stern [facility] 1 16:45:25 Pain in female genitalia Completed 201712/30/2020 Dysmenorr hea;Recor ded Elsewhere : No Locati on: [facility] So urce: EHR Chron ic: N Practic e ID: [id number] Bill able Time: 04:15:[address] [facility] 16:45:22 Problem Notes None recorded. Procedures Surgical History Date Name Laterality Status Provider Name and Address Organization Details Recorded Time 024 Date of Last Pap Smear completed Gloria Jordan [facility] 06/23/2024 16:10:51 022 Date of Last [facility]ammogram [facility] 11:23:53 022 echocardiography completed Naida [facility] 03/22/2024 11:24:41 021 TOTAL HYSTERECTOMY, LAPAROSCOPIC, WITH BILATERAL SALPINGO-OOPHORECTO MY (SURG) completed Kimmie Smallwood [facility] 02/02/2021 11:49:34 021 procedure on knee completed [facility] 03/22/2024 11:55:35 018 echocardiography completed Naida [facility] 03/22/2024 11:24:36 014 Cholecystectomy completed Naida [facility] 05/09/2022 16:30:02 008 Endometrial Ablation completed [facility] 05/09/2022 16:30:10 001 Appendectomy completed [facility] 05/09/2022 16:29:55 993 procedure on eye [facility] 05/09/2022 16:30:17 992 procedure [facility] knee [facility] 03/22/2024 11:55:23 procedure on knee completed Halima hopkins [facility] 05/09/2022 16:30:28 Imaging Results None recorded. Procedure Notes None recorded. Medical Equipment None Reported. Allergies Allergen ID Allergen Name Allergen Category Reaction Reaction Severity Criticality Documentation Date Start Date Code Code System Note Provider Name and Address Organization Details Recorded Time 48741 codeine medicatio n Not available Not available Not available 08/06/2020 7794 RxNorm React ion: Hives /Skin Rash; Comme nt: Locat ion: [facility] r; Not Available [facility] 14:24:31 Medications Name Sig Start Date Stop Date Status Note LastModified by Organization Details LastModified Time cyclobenz aprine 10 mg tablet 04/19 completed Not Available Not Available Not Available doxycycli ne hyclate 100 mg capsule 04/21 completed Not Available Not Available Not Available quetiapin e 300 mg tablet take 1 tablet by oral route every day 12/30 completed Prescrib ed [place] e: Yes Loca tion: [facility] odify By: [email or web address] z Encoun ter DateTime : 01/02/20 18 04:15:00 PM Not Available Not Available Not Available valacyclo vir 1 gram tablet TK 2 TS PO BID FOR 1 DAY 12/30 completed Not Available Not Available Not Available hydrocodo ne 5 mg-acetam inophen 325 mg tablet TAKE 1 TO 2 TABLETS BY MOUTH EVERY 4 HOURS NEEDED FOR PAIN 04/19 completed Not Available Not Available Not Available phentermi ne 15 mg capsule TAKE 1 CAPSULE BY MOUTH EVERY DAY 12/09 completed Not Available Not Available Not Available metronida zole 500 mg tablet TAKE 1 TABLET BY MOUTH THREE TIMES DAILY FOR 10 DAYS 06/23 completed Not Available Not Available Not Available ciproflox acin 500 mg tablet TAKE 1 TABLET BY MOUTH EVERY 12 HOURS FOR 10 DAYS 06/23 completed Not Available Not Available Not Available tramadol 50 mg tablet TK 1 T PO Q 4 H PRN FOR ACUTE PAIN 12/30 completed Not Available Not Available Not Available phentermi ne 30 mg capsule TAKE 1 CAPSULE BY MOUTH EVERY DAY active Not Available Not Available No t Available ketorolac 10 mg tablet TAKE 1 TABLET BY MOUTH EVERY 6 HOURS 12/09 completed Not Available Not Available Not Available ketorolac 0.5 % eye drops INSTILL 1 DROP INTO THE OPERATED EYE THREE TIMES DAILY. BEGINNIN G 3 DAYS BEFORE THE SURGERY 12/30 completed Not Available Not Available Not Available Una Thyroid 15 mg tablet TAKE 1 TABLET BY MOUTH DAILY 04/19 completed Not Available Not Available Not Available oxycodone -acetamin ophen 5 mg-325 mg tablet 03/09 completed Not Available Not Available Not Available prednisol one acetate 1 % eye drops,wilma pension INSTILL 1 DROP INTO THE OPERATED EYE THREE TIMES DAILY BEGINNIN G THE DAY AFTER SURGERY 12/30 completed Not Available Not Available Not Available lorazepam 0.5 mg tablet 03/09 completed Not Available Not Available Not Available estradiol 1 mg tablet TAKE 1 TABLET BY MOUTH DAILY 04/19 completed Not Available Not Available Not Available levothyro xine 50 mcg tablet TAKE 1 TABLET BY MOUTH DAILY 12/30 completed Not Available Not Available Not Available cephalexi n 500 mg capsule TAKE ONE CAPSULE BY MOUTH FOUR TIMES DAILY FOR 7 DAYS 04/21 completed Not Available Not Available Not Available Proctofoa m HC 1 %-1 % INSERT 1 APPLICAT OR INTO THE RECTUM TWICE DAILY 12/09 completed Not Available Not Available Not Available orphenadr ine citrate ER 100 mg tablet,ex tended release TAKE 1 TABLET BY MOUTH EVERY 12 HOURS NEEDED FOR MUSCLE SPASMS OR PAIN 12/09 completed Not Available Not Available Not Available estradiol 2 mg tablet TAKE 1 TABLET BY MOUTH EVERY DAY 04/19 completed Not Available Not Available Not Available hydrochlo rothiazid e 25 mg tablet TAKE 1 TABLET BY MOUTH EVERY DAY 12/09 completed Not Available Not Available Not Available Una Thyroid 30 mg tablet TAKE 1 TABLET BY MOUTH EVERY DAY 04/19 completed Not Available Not Available Not Available ergocalci ferol (vitamin D2) 1,250 mcg (50,000 unit) capsule TAKE 1 CAPSULE BY MOUTH EVERY WEEK X 1 MONTH THEN 1 CAPSULE EVERY MONTH 12/30 completed Not Available Not Available Not Available lorazepam 1 mg tablet TAKE 1 TABLET BY MOUTH DAILY NEEDED 06/23 completed Not Available Not Available Not Available levofloxa erica 500 mg tablet TAKE 1 TABLET BY MOUTH DAILY 04/21 completed Not Available Not Available Not Available betametha sone dipropion ate 0.05 % topical ointment active Not Available Not Available Not Available ondansetr on 4 mg disintegr ating tablet 03/09 completed Not Available Not Available Not Available doxycycli ne hyclate 100 mg tablet 03/09 completed Not Available Not Available Not Available progester one micronize d 100 mg capsule Take 1 capsule every day by oral route. 12/30 completed Not Available Not Available Not Available amoxicill in 875 mg-potass ium clavulana te 125 mg tablet TAKE 1 TABLET BY MOUTH TWICE DAILY FOR 7 DAYS 04/19 completed Not Available Not Available Not Available amoxicill in 500 mg-potass ium clavulana te 125 mg tablet 03/09 completed Not Available Not Available Not Available oxycodone 5 mg tablet TAKE 1 TABLET BY MOUTH EVERY 6 HOURS NEEDED FOR PAIN 04/21 completed Not Available Not Available Not Available hydroxyzi ne pamoate 25 mg capsule active Not Available Not Available Not Available escitalop abraham 20 mg tablet 12/09 completed Not Available Not Available Not Available aripipraz ole 5 mg tablet TAKE 1 TABLET BY MOUTH EVERY DAY active Not Available Not Available No t Available bupropion HCl XL 300 mg 24 hr tablet, extended release TAKE 1 TABLET BY MOUTH DAILY IN THE MORNING active Not Available Not Available No t Available bupropion HCl XL 150 mg 24 hr tablet, extended release 04/19 completed Not Available Not Available Not Available topiramat e 50 mg tablet TAKE 1 TABLET BY MOUTH TWICE DAILY active Not Available Not Available No t Available nitrofura ntoin monohydra te/macroc rystals 100 mg capsule active Not Available Not Available Not Available duloxetin e 30 mg capsule,d elayed release TAKE 1 CAPSULE BY MOUTH EVERY DAY 12/09 completed Not Available Not Available Not Available duloxetin e 60 mg capsule,d elayed release TAKE 1 CAPSULE BY MOUTH EVERY DAY active Not Available Not Available No t Available eszopiclo ne 1 mg tablet 12/09 completed Not Available Not Available Not Available levothyro xine 12/30 completed Not Available Not Available Not Available escitalop abraham oxalate 03/09 completed Not Available Not Available Not Available Seasoniqu e 0.15 mg-30 mcg (84)/10 mcg(7) tablets,3 month dose pack take 1 tablet by oral route every day 12/30 completed Prescrib bronwyn Golden e: No Locat ion: [facility] odify By: [email or web address] Encounte r DateTime : 03/14/20 18 02:00:00 PM Not Available Not Available Not Available quetiapin e ER 150 mg tablet,ex tended release 24 hr 12/09 completed Not Available Not Available Not Available Trintelli x 10 mg tablet 06/23 completed Not Available Not Available Not Available Ozempic 1 mg/dose (2 mg/1.5 mL) subcutane ous pen injector Inject 1 mg every week by subcutan eous route. 12/09 completed Not Available Not Available Not Available Ozempic 0.25 mg or 0.5 mg (2 mg/1.5 mL) subcutane ous pen injector INJECT 0.25 MG UNDER THE SKIN ONCE EVERY WEEK. 12/09 completed Not Available Not Available Not Available Ozempic 1 mg/dose (4 mg/3 mL) subcutane ous pen injector INJECT 1 MG UNDER THE SKIN EVERY WEEK 12/09 completed Not Available Not Available Not Available Ozempic 2 mg/dose (8 mg/3 mL) subcutane ous pen injector Inject 2 mg every week by subcutan eous route. 06/17 completed Not Available Not Available Not Available Mounjaro 7.5 mg/0.5 mL subcutane ous pen injector INJECT 7.5MG UNDER THE SKIN ONCE WEEKLY DIRECTED 12/09 completed Not Available Not Available Not Available Mounjaro 5 mg/0.5 mL subcutane ous pen injector INJECT 5MG UNDER THE SKIN ONCE WEEKLY 08/08 completed Not Available Not Available Not Available Mounjaro 2.5 mg/0.5 mL subcutane ous pen injector INJECT 2.5 MG UNDER THE SKIN EVERY WEEK 08/08 completed Not Available Not Available Not Available Zepbound 5 mg/0.5 mL subcutane ous pen injector 2024 active Not Available Not Available Not Avai lable Zepbound 2.5 mg/0.5 mL subcutane ous pen injector Inject 2.5 mg every week by subcutan eous route. 06/17 completed Not Available Not Available Not Available Vitals Date Recorded Body height Provider Name an d Address Organization Details Last Updated DateTime 08/22/2024 165.1 cm Gloria Jordan [facility] 08/22/2024 12:38:47 Date Recorded Body height Body mass index (BMI) Body weight Systolic blood pressure Diastolic blood pressure Provider Name and Address Organization Details Last Updated DateTime 12/10/2023 165.1 cm 29 kg/m2 25881.07 g 102 mm[Hg] 67 mm[Hg] Magaly Adilson [facility] 4 16:26:34 Date Recorded Body height Body mass index (BMI) Body weight Systolic blood pressure Diastolic blood pressure Provider Name and Address Organization Details Last Updated DateTime 03/22/2024 165.1 cm 27.3 kg/m2 97459.15 g 93 mm[Hg] 57 mm[Hg] Naida Prince [facility] 4 11:54:03 Date Recorded Body height Body mass index (BMI) Body weight Systolic blood pressure Diastolic blood pressure Provider Name and Address Organization Details Last Updated DateTime 06/23/2024 165.1 cm 30.6 kg/m2 18030 g 104 mm[Hg] 71 mm[Hg] Gloria Jordan [facility] 4 16:10:00 Date Recorded Body height Body mass index (BMI) Body weight Systolic blood pressure Diastolic blood pressure Provider Name and Address Organization Details Last Updated DateTime 07/30/2023 165.1 cm 27.1 kg/m2 63820.56 g 100 mm[Hg] 66 mm[Hg] Katie Stern [facility] 3 16:11:01 Social History Question Answer Notes LastModified by Organizat ion Details LastModified Time Tobacco Smoking Status Never Smoker Katie Stern [facility] 04/19/2022 16:52:58 Do You Have An Advance Directive? No Information n ot available 01/24/2021 Are You Blind Or Do You Have Difficulty Seeing? No Information n ot available 01/24/2021 What Is Your Level Of Caffeine Consumption? Heavy Information not available 01/24/2021 In The 14 Days Before Symptom Onset, Have You Had Close Contact With A Laboratory-confirm ed COVID-19 While That Case Was Ill? No Information n ot available 01/24/2021 In The 14 Days Before Symptom Onset, Have You Had Close Contact With A Person Who Is Under Investigation For COVID-19 While That Person Was Ill? No Information not available 01/24/2021 Have You Been To An Area Known To Be High Risk For COVID-19? No Information not available 01/24/2021 Are You Deaf Or Do You Have Serious Difficulty Hearing? No [email or web address] Information not available 05/09/2022 What Type Of Diet Are You Following? REGULAR Information n ot available 01/24/2021 What Is The Highest Grade Or Level Of School You Have Completed Or The Highest Degree You Have Received? [id number] Information not available 01/24/2021 Are There Any Guns Present In Your Home? No Information not available 01/24/2021 Do You Use Your Seat Belt Or Car Seat Routinely? Yes Information not available 01/24/2021 Do You Have Smoke And Carbon Monoxide Detectors In Your Home? Yes Information not available 01/24/2021 How Much Tobacco Do You Smoke? No Information not available 01/24/2021 Do You Use Sunscreen Routinely? No Information not available 01/24/2021 Have You Used IV Drugs? No Information not available 01/24/2021 Do You Have Difficulty Walking Or Climbing Stairs? No [email or web address] Information not available 05/09/2022 Sex: Unknown Functional Status Question Answer Note LastModified by Organizat ion Details LastModified Time Do you use any illicit or recreational drugs? No Information not available 01/24/2021 What is your level of alcohol consumption? None Information not available 01/24/2021 Are you able to walk? YESWOREST Information not available 01/24/2021 Are you able to care for yourself? 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 No [email or web address] Information not available 05/09/2022 What is your exercise level? Moderate Information not available 01/24/2021 Mental Status Question Answer Note LastModified by Organization D etails LastModified Time Do you feel stressed (tense, restless, nervous, or anxious, or unable to sleep at night)? [id number] Information not available 01/24/2021 Family History Relationship Description Onset Age of this Age Resolved Age Notes LastModified by Organization Details LastModified Time Mother Malignant tumor of pancreas [email or web address] Not available 2020 12:43:13 Father Heart disease Not available 2020 16:48:55 Father Diabetes mellitus Not available 2020 16:49:03 Father Hypertensive disorder Not available 2020 16:49:13 Maternal Grandmother Malignant neoplasm of ovary Not available 2020 16:49:23 Brother Hypertensive disorder Not available 2020 16:49:30 Medical History Condition Response Allergies (Food, seasonal, environmental ) N Other Y Blood Transfusion N Drug/Latex Allergies/Reactions Y Breast Cancer N Dermatologic Disorders N Lung Disease N Defects or Inherited Disease N Breast Problem N Hematologic disorders N Anesthesia Complications N History of STI N Deep Vein Thrombosis N Polycystic ovary syndrome N Anxiety Disorder Y Autoimmune disease N Arthritis N Infertility N Polyps N Acid Reflux (GERD) N History of abnormal pap N Cancer N Stroke N Varicosities N Neurologic/Epilepsy Y Endometriosis N High Cholesterol N Headaches Y Fibromyalgia N Kidney Disease N Heart Problems N Kidney or Bladder Problems N Thyroid Problems N GI Problems N Eating Disorder N Anemia N Art (IVF or FET) N Psychiatric Illness Y Ovarian Cancer N Diabetes N Pulmonary (TB, Asthma) N Hepatitis/Liver Disease N No Past Medical History N Eczema N Urinary Tract Infection N Abuse/Domestic Violence N Asthma N Trauma/Violence N Depression/ depression Y Heart Disease N Pre-Eclampsia N Hypertension N Osteoporosis N Thrombophilias N Gynecological History Statement/Question Response Date of Last Mammogram 05/24/2022 Date of LMP 08/20/2007 On BCP's at Conception? N Was last menstrual period normal Y STIs/STDs N HPV Vaccine N Duration of Flow (days) 5 Current Control Method Hysterectom y Age at First Child 33 Date of Last Colonoscopy Frequency of Cycle (Q days) 30 Sexually Active? Y Date of DEXA bone scan Age of first menstrual cycle 13 Date of Last Pap Smear 03/24/2024 Sexual Problems? N Desired Control Method Ablation Obstetrics History GPAL:G 1 P 1 0 0 1 Type Value Full Term 1 Living 1 Total 1 Past Encounters Encounter ID Performer Location Encounter Start Date Encounter Closed Date Diagnosis/Indication Diagnosis SNOMED-CT Code Diagnosis ICD10 Code Diagnosis Note [id number] Jayden Martin MD [place] [address],[place] [address] 02/10/2020 16:59:14 02/11/2020 10:53:31 Menopausal symptom 81507105 N95.1 This patient is a 49-year-ol d female who presents for menopausal symptoms. She has severe hot flashes. she has had episodes multiple times a day. She has them at night. She has night sweats. She soaks her bed sheets. She is sleeping very poorly. Her mood is been severely affected. We talked about hormone replacemen t therapy. She has her uterus. we talked about the risk. We talked aboutnonho rmonalalte rnatives. We agreed to start estradiol and micronized progestero ne. She has no significan t risk factors for hormone replacemen t therapy. It should be safe for her to tell she is in her60s. She understand s this. She has no medical concerns that would contraindi jorge The use of hormone replacemen t therapy. I spent over 30 minutes with her ,more than 50% of which was counseling . she will return in 1 month. [id number] Jayden Martin MD [place] [address],[place] [address] 03/09/2020 15:00:42 03/09/2020 21:52:34 [id number] Jayden Martin MD [place] [address],[place] [address] 12/30/2020 16:34:09 12/31/2020 11:10:54 Menopausal symptom 46867344 N95.1 Menorrhagia [id number] N9 2.0 this patient is a 50-year-ol d female with painful heavy vaginal bleeding. This is a long-stand ing problem that we discussed in the past. She is severely painful menses. Her bleeding is quite heavy at this time. She has failed endometria l ablation in the past. She has a strong family history of cancer. She has 1st degree relatives with colon and breast cancer. Patient would like definitive treatment for her heavy bleeding. She would like to proceed with hysterecto my. We talked about removal of ovaries. Talked about menopause. Talked about hormone replacemen t therapy. We had a lengthy discussion . We talked about the risks benefits of hysterecto my, and oophorecto my. Patient also on a wanted to discuss genetic testing for her possible familial gene mutation predisposi ng her to cancer. We agreed to proceed with genetic testing as well. Patient has accidents, getting blood on her bedding and clothing. Is affected work. She changes a pad or tampon every hour. She leaks blood around the pad and tampon. This bleeding has a profound impact on her quality of life and her activities of daily living. Dysmenorrhea [id number] N 94.6 [id number] Jayden Martin MD [place] [address],[facility] [place] [address] 01/24/2021 12:39:54 01/25/2021 17:53:09 Menorrhagia 143508932 N92.0 Dysmenorrhea [id number] N 94.6 this patient is a 50-year-ol d female with menorrhagi a and dysmenorrh ea. We have agreed to perform total laparoscop ic hysterecto my and bilateral salpingo-o ophorectom y. She understand s the risks, benefits, and alternativ es to the procedure. She has completed the informed consent process and is ready to proceed. [id number] Jayden Martin MD [place] [address] [address] 02/03/2021 09:21:20 02/03/2021 09:22:27 [id number] Jayden Martin MD [place] [address],[place] [address] 02/10/2021 12:41:52 02/11/2021 09:52:14 Menopausal symptom [id number] N95.1 This patient is a 50-year-ol d female who presents for postop follow-up. She is 1 week postop from a total laparoscop ic hysterecto my and bilateral salpingo-o ophorectom y. SHe does have some diminished energy. We agreed to increase her estradiol to 2 mg. Her incisions are clean dry and intact. She denies any nausea, vomiting, fever, chills. She denies any vaginal discharge. She will follow up as needed. We discussed her [employer] testing. [id number] Jayden Martin MD [place] [address] [address] 04/19/2022 16:39:17 04/19/2022 17:54:47 Menopausal symptom [id number] N95.1 Gynecologi c examination [id number] Z01.419 Annual gynecologi terrence exam performed. Patient will come back in a year unless there are new symptoms. Suggest Calcium with Vitamin D if not eating in diet. Patient advised to get annual flu shot. Recommend yearly physicals and preform monthly breast exams. Genetic testing is available for patients with family history of cancer. Engage in safe sexual practices, use condoms. Encouraged to have daily exercise. Avoid tobacco and illicit drugs, moderation of alcohol. If BMI greater than 25 dietary consult advised. If you have any questions please call or email. Mammogram - pending Colonoscop y - referal Bone Density - na Cholestero l - done Pap - today [id number] LAZARO Soto [place] [address],[place] [address] 04/21/2022 11:17:40 04/25/2022 16:54:31 Obesity [id number] E66.9 51yo Presents for initial weight management consultati onCurrent weight is 191, BMI 31.8, currently at highest weightHer weight gain has been influenced by her knee injury, has had multiple procedures on her knee. This has made exercise difficult. She does not eat breakfast, often only eats 1-2 meals per dayOften craves sugar and carbsShe sleeps 6-7 hours per night. Does not feel rested, often feels very fatigued. She snores. She had a sleep study done 8 months ago at home, results were inconclusi ve due to monitors falling off in sleep. 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 Exercise is limited due to knee injury, will go on walks around her [place] when she can. Medical hx : Bipolar/De pression, anxiety, thyroid issues, gout, arthritis, elevated lipid levelsMedi cations : Bupropion, escitalopr am, lorazepam, quetiapine Surgical hx : TLH BSO, appendecto my, cholecyste ctomy, Knee procedures , procedure on eye She does not feel like current medication regimen is effectivel y controllin g her bioplar disorder. Her PCP manages her medication , she has not been able to get in to see a psychiatri st. Psychiatri st referral placed, would like patient to be seen as medication adjustment may be necessary. We discussed psychiatri st may take time to get an appointmen t with, encouraged her to f/u with PCP who manages medication to discuss options until then. She denies any thoughts of harming herself or others. -She recently had all lab work done at [facility], results pending, will discuss at f/u appointmen t-Would like her to check with insurance to see if sleep study can be done-Metab olic testing discussed- EKG order given-Diet ician appointmen t scheduled - we discussed health eating and exercise recommenda tions - resistance bands encouraged -We discussed medication options briefly, she is interested in injectable medication , will discuss further at next office visit Time spent in visit is a total of 45 mins with at least 50% of visit consisting of counseling and review of plan of care. Bipolar disorder [id number] F31.9 Fatigue [id number] R53.83 [id number] Jayden Martin MD [place] [address],[place] [address] 05/09/2022 16:13:08 05/10/2022 13:49:18 Obesity [id number] E66.9 This patient is a 51-year-ol d female presents for phone weight management . We had a lengthy discussion regarding weight loss medication s . She has not completed her evaluation . With obtain additional labs today. we spent more than 40 minutes face-to-fa ce. More than 50 50% was counseling . We had agreed to start the new agonist. We talked about some cardiac concerns but it is merely bradycardi a. She has a cardiology consult that is being arranged . She is given details on the injectable medication . She was warned of side effects. We agreed to follow-up in 4 weeks. [id number] Jayden Martin MD [place] [address],[place] [address] 06/13/2022 16:59:58 06/14/2022 15:14:11 Obesity 802995437 E66.9 This patient is a 51-year-ol d female who presents for follow-up on weight management . She is doing very well. She continues to lose weight. She is finished her 1st month of the GLP 1 agonist. She reports excellent results. She would like to move up to the next dose level. We agreed to that. Was prescribed . She described which she is doing for activity. She described her diet. She is doing everything correctly. We spent more than 20 minutes face-to-fa ce. More than 50% was counseling . We agreed to follow-up in 1 month. [id number] Jayden Martin MD [place] [address],[place] [address] 07/11/2022 15:43:26 07/11/2022 17:51:12 Obesity 913963815 E66.9 This patient is a 51-year-ol d female who presents for follow-up on weight management . She will no longer be able to get the new G LP 1 agonist. Talked about treatment options. She is going to treat in the short term with the phentermin e topiramate combinatio n. She is given precaution s on phentermin e and topiramate . She was interested in also get a older G LP 1 Anna from [facility]. Talked about that. I offered as a suggestion . We are going to attempt to get some Ozempic from [facility] for impaired glucose tolerance. We talked about side effects GLP 1 agonist. She is given precaution s. We talked about the dosing. We spent 20 minutes face-to-fa ce more. 50% was counseling . Impaired g lucose tolerance 1410227 R73.03 [id number] Jayden aMrtin MD [place] [address],[place] [address] 08/08/2022 17:27:51 08/09/2022 12:42:23 Impaired glucose tolerance 0845356 R73.03 this patient is a 51-year-ol d female presents for weight loss management . She continues to lose weight amount of space. Is exercising modifying her diet. She would like to switch back to the new G LP 1 agonist. We agreed to do that. She does have prediabete s. She is going to get the a savings card with the prediabete s diagnosis. Sooner than 20 minutes face-to-fa ce. More than 50% was counseling . She return in 4 weeks. [id number] Jayden Martin MD [place] [address],[place] [address] 09/26/2022 16:59:27 09/27/2022 15:07:53 Impaired glucose tolerance 6258384 R73.03 this patient is a 51-year-ol d female presents for weight loss management . She continues to lose weight amount of space. Is exercising modifying her diet. she has been on 0.5 mg of Ozempic. She will start 1 mg. We discussed her exercise, we discussed her diet. We spent over 20 minutes face-to-fa ce. More than 50% was counseling . She return in 4 weeks. [id number] Jayden Martin MD [place] [address],[place] [address] 11/07/2022 16:11:59 11/07/2022 17:40:08 Prediabetes 786898570 R73.03 this patient is a 52-year-ol d female presents for weight management follow-up. She continues to lose weight excellent pace. She is using Ozempic. She would like to move up to the next dose. We agreed to 1 mg q.week. 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 She is exercising well. She is doing everything right at this point. She will follow-up in 4 weeks. We spent 20 minutes face-to-fa ce. More than 50% was counseling . [id number] Jayden Martin MD [place] [address],[place] [address] 12/15/2022 15:57:06 12/17/2022 21:08:16 Prediabetes [id number] R73.03 this patient is a 52-year-ol d female who presents for weight management follow-up. She has been using Ozempic to aid in her weight loss. She is prediabeti c. She continues to lose significan t amounts of weight. She is very careful about her diet. She is exercising . Seems to be doing everything well. We agreed to move the highest dose of Ozempic. She is tolerating medication well. She will follow-up in 1 month. Obesity 721697084 E66.9 [id number] Jayden Martin MD [place] [address],[place] [address] 02/10/2023 11:05:20 02/12/2023 15:41:27 Prediabetes 011659283 R73.03 this patient is a 52-year-ol d female who presents for weight management follow-up. She has been using Ozempic to aid in her weight loss. She is prediabeti c. She continues to lose significan t amounts of weight. She is very careful about her diet. She is exercising . Seems to be doing everything well. We agreed to move the highest dose of Ozempic. She is tolerating medication well. She will follow-up in 1 month. spent 20 minutes face-to-fa ce. More than 50% was counseling . [id number] Jayden Martin MD [place] [address],[place] [address] 03/20/2023 10:03:27 03/20/2023 11:30:20 Prediabetes [id number] R73.03 This patient is a 52-year-ol d female presents for follow-up on prediabete s. We continue to treat her with GLP 1 agonist. She is tolerating it well. She continues to lose weight. She is active. She has intentiona l sessions of exercise. She is managing her food well. Weight loss has slowed. We agreed to increase her dose to the 7.5 mg dose weekly. She will follow-up in 2 months. [id number] Jayden Martin MD [place] [address],[place] [address] 07/30/2023 16:05:12 07/30/2023 16:42:40 Prediabetes [id number] R73.03 This patient is a 52-year-ol d female presents for follow-up on prediabete s. We continue to treat her with GLP 1 agonist. She is tolerating it well. She continues to lose weight. She is active. She has intentiona l sessions of exercise. She is managing her food well. Weight loss has slowed With some slight regain. has not had the medication for a few weeks. To restart Ozempic. To start at 2 mg q.week. [id number] Jayden Martin MD [place] [address],[place] [address] 12/10/2023 16:18:23 12/10/2023 17:03:16 Prediabetes [id number] R73.03 This patient is a 52-year-ol d female presents for follow-up on prediabete s. We continue to treat her with GLP 1 agonist. She is tolerating it well. She continues to lose weight. She is active. She has intentiona l sessions of exercise. She is managing her food well. Weight loss has slowed With some slight regain. has not had the medication for a few weeks. To restart Ozempic. To start at 2 mg q.week. [id number] Jayden Martin MD [place] [address],[place] [address] 03/22/2024 11:45:22 03/22/2024 12:22:37 Prediabetes [id number] R73.03 This patient is a 52-year-ol d female presents for follow-up on prediabete s. We continue to treat her with GLP 1 agonist. She is tolerating it well. She continues to lose weight. She is active. She has intentiona l sessions of exercise. She is managing her food well. Weight loss has slowed With some slight regain. has not had the medication for a few weeks. To restart Ozempic. To start at 2 mg q.week. Gynecologi c examination [id number] Z01.419 Z11.[address]rence exam performed. Patient will come back in a year unless there are new symptoms. Suggest Calcium with Vitamin D if not eating in diet. Patient advised to get annual flu shot. Recommend yearly physicals and preform monthly breast exams. Genetic testing is available for patients with family history of cancer. Engage in safe sexual practices, use condoms. Encouraged to have daily exercise. Avoid tobacco and illicit drugs, moderation of alcohol. If BMI greater than 25 dietary consult advised. If you have any questions please call or email. Mammogram - pending Colonoscop y - already scheduled Bone Density - na Cholestero l - done Pap - today [id number] Jayden Martin MD [place] [address] [address] 06/23/2024 15:57:35 06/24/2024 10:58:21 Obesity 480921816 E66.9 this patient is a 53-year-ol d female presents for follow-up on weight management . She has started to regain weight after discontinu ation of her GLP 1 agonist. She would like to treat medically. We have treated her for an extended period in the past. She would like to restart phentermin e. We agreed phentermin e restart. To start at 30 mg. She is given precaution s, instructio ns. we discussed risks, benefits, and alternativ es. We discussed exercise and calorie management . [id number] Jayden Martin MD [place] [address] [address] 08/22/2024 12:01:13 08/22/2024 13:36:46 Obesity 276199312 E66.9 this patient is a 53-year-ol d female presents for follow-up on weight management . She has started to regain weight after discontinu ation of her GLP 1 agonist. She would like to treat medically. she was restarted on phentermin e and topiramate . She feels that she is not making adequate progress and in fact losing ground. We agreed to start GLP 1 agonist. Zepbound was prescribed at 5 mg She is given precaution s, instructio ns. we discussed risks, benefits, and alternativ es. We discussed exercise and calorie management . Health Concerns Section Related Observation LastModified by Organization Detai ls LastModified Time None Recorded Concern Status LastModified by Organization Details LastModified Time None Recorded Advance Directives Directive N: Payers Insurance Date Sequence Insurance Name Policy Number Policy Sheriff Covered Member ID Sheriff Member ID Guarantor Name 04/17/2022 1 [employer] (POS) [id number] Armida Mcelroy [id number] Eve Rivero Christellejose f 08/22/2024 1 [place] [id number] Armida Mcelroy [id number] Eve Mcelroy Notes Date Note Type Note Provider Name and Address Organization Details Recorded Time 07/30/2023 text/html This patient is a 52-year-old female presents for follow-up on prediabetes. We continue to treat her with GLP 1 agonist. She is tolerating it well. She continues to lose weight. She is active. She has intentional sessions of exercise. She is managing her food well. Weight loss has slowed With some slight regain. has not had the medication for a few weeks. To restart Ozempic. To start at 2 mg q.week. Jayden Martin MD [address], [place], [address], [facility] 07/30/2023 16:38:52 12/10/2023 text/html This patient is a 52-year-old female presents for follow-up on prediabetes. We continue to treat her with GLP 1 agonist. She is tolerating it well. She continues to lose weight. She is active. She has intentional sessions of exercise. She is managing her food well. Weight loss has slowed With some slight regain. has not had the medication for a few weeks. To restart Ozempic. To start at 2 mg q.week. Jayden Martin MD [address], [place], [address], [facility] 12/10/2023 17:02:44 03/22/2024 text/html Annual GYNReport ed bypatient.History:no gynecologic complaints Urinary symptoms:No hematuria; No incontinence Vulva:No genital lesion Vagina:Normal vaginal discharge Breast:No breast pain; No breast lump Sexual complaints:No sexual complaints; No pain during intercourse Menopausal Symptoms:No menopausal symptoms Psychological symptoms:No depression; No anxiety Preventive measures:Encourage self breast examination; Encourage regular exercise Jayden Martin MD [address], [place], [address], [facility] 03/22/2024 12:21:09 06/23/2024 text/html this patient is a 53-year-old female presents for follow-up on weight management. She has started to regain weight after discontinuation of her GLP 1 agonist. She would like to treat medically. We have treated her for an extended period in the past. She would like to restart phentermine. We agreed phentermine restart. To start at 30 mg. She is given precautions, instructions. we discussed risks, benefits, and alternatives. We discussed exercise and calorie management. Jayden Martin MD [address], [place], [address], [facility] 06/23/2024 18:12:59 08/22/2024 text/html this patient is a 53-year-old female presents for follow-up on weight management. She has started to regain weight after discontinuation of her GLP 1 agonist. She would like to treat medically. she was restarted on phentermine and topiramate. She feels that she is not making adequate progress and in fact losing ground. We agreed to start GLP 1 agonist. Zepbound was prescribed at 5 mg She is given precautions, instructions. we discussed risks, benefits, and alternatives. We discussed exercise and calorie management. Jayden Martin MD [address], [place], [address], [facility] 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 Status 12/31/19 21 1 CLOSED Fetus Data First Name Last Name Admitted to NICU Weight (g) Sex Living Outcome Pediatric Complications Fetus ID Race Codes Race Delivery Type 3033.16 [id number] Primary Librado Calculation Initial Librado Date Initial Exam Date Initial Exam Provider Initial Ultrasound Date Last Menstrual Period Date Ultra Sound Weeks Gestation 0 Eighteen To Twenty Week Librado Update Ultra Sound Date Fundal Height At Umbil Quickening Date Ultra Sound Latest Weeks Gestation Final Librado Confirmed By Final Librado Confirmed Date Final Librado Date Ultra Sound Latest Days Gestation 0 0 Menstrual History Last Menstrual Date Menses Monthly On Bcp Conception Prior Menses Frequency Hcg Plus Date Menarche Onset Age Delivery Information Delivery Date Delivery Type Labor Anesthesia Weeks Gestation Incision Type Labor Labor Length Hrs Delivered By Post Complications Tubal Sterilization Discharge Date Comments 7 Joel placenta previa Discharge Information Feeding Method Contraceptive Method Maternal HG B and HCT Levels
--- OUTSIDE RECORDS SUMMARY | 2025-01-30 12:13 | XMS_ITS | Clinical Summary ---
Author Organization [facility] Address [address] [place] [address] Phone Care Team Providers Care Store Receiving Specialist Name Role Phone Dion Rangel MD Primary Care Provider [phone] Allergies Active Allergy Reactions Criticality Noted Date Comments Codeine Hives,Itching,Rash Reaction: Hives, Skin Rash, , Reaction: Itching, Medications escitalopram (LEXAPRO) 20 MG Tablet Take 20 mg by mouth daily. 03/21/2020 Active buPROPion (WELLBUTRIN) 300 MG TABLET SR 24 HR XL tablet Take 300 mg by mouth daily. Active Topiramate 50 MG Tablet Take 1 Tablet by mouth 2 times daily. 08/06/2024 Active phentermine 30 MG Capsule Take 30 mg by mouth daily. 06/23/2024 Active metroNIDAZOLE (FLAGYL) 500 MG Tablet Take 500 mg by mouth as needed. Active ARIPiprazole (ABILIFY) 5 MG Tablet Take 5 mg by mouth daily. Active Active Problems No known active problems Immunizations Immunization Administration Dates Next Due Influenza Vaccine, Quadrivalent, PF 09/04/2019,1 08/22/2014 Influenza Vaccine,unspecified Formulation 2022,05/20/2018,06/20/2009 Influenza, Injectable, Quadrivalent 07/20/2016 Influenza, recombinant, trivalent, PF 07/22/2024 ,06/30/2014 Influenza,Split Virus,Trivalent,Injectable,PF 06/14/2012 Novel [id number], Injectable 06/20/2009 Pneumococcal Vaccine - 13 Valent 12/29/2011 Pneumococcal Vaccine Adult - 23 Valent 2 TDAP Vaccine 12/01/2021 Social History Tobacco Use Types Packs/Day Years Used Date Smoking Tobacco: Never Smokeless Tobacco: Never Tobacco Cessation:Counseling Given: Not Answered Alcohol Use Standard Drinks/Week Comments No 0 (1 standard drink = 0.6 oz pur e alcohol) Sexually Active Control Partners Comments Yes Male Comments No Sex and Gender Information Value Date Recorded Sex Assigned at Not on file 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 Gender Identity Not on file Sexual Orientation Not on file Last Filed Vital Signs Vital Sign Reading Time Taken Comments Blood Pressure 94/72 2024 1:38 PM SENIOR 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 SPECIALIST Pulse 85 2024 1:38 PM SENIOR ENGINEERING SPECIALIST Temperature 37.3 C (99.1 F) 2024 1:38 PM SENIOR ENGINEERING SPECIALIST Respiratory Rate 16 2024 1:38 PM SENIOR ENGINEERING SPECIALIST Oxygen Saturation 97% 2024 1:38 PM SENIOR ENGINEERING SPECIALIST Inhaled Oxygen Concentration - - Weight 87.7 kg (193 lb 6 oz) 2024 1:38 PM SENIOR ENGINEERING SPECIALIST Height 170.2 cm (5' 7) 06/20/2018 2:57 PM CDT Body Mass Index 30.29 06/20/2018 2:57 PM CDT Plan of Treatment Health Maintenance Due Date Last Done Comments Hepatitis C Virus (HCV) Screening 1969 Mammogram 1969 Hepatitis B Immunization (1 of 3 - 19+ 3-dose series) 1988 Pap Smear 1990 Cervical Cancer Screening (CCS) 1999 HPV/Cotest 1999 Colonoscopy 2014 Colorectal Cancer Screening 2014 Cologuard 2019 Immunochemical Fecal Occult Blood 2019 Pneumococcal Immunization (50+ years) (3 of 3 - PCV20 or PCV21) 2019 12/29/2011, 12/29/2011 Zoster Immunization (1 of 2) 2019 SARS-COV-2 Immunization ( - season) 2024 Td Immunization Every 10 Years (Adults With 1 Tdap) 12/02/2031 12/01/2021 Respiratory Syncytial Virus (RSV) Immunization (Adult) (1 - 1-dose 75+ series) 2044 Pneumococcal Immunization Combined Discontinued 12/29/2011, 12/29/2011 DTaP/Tdap/Td Immunization Discontinued 12/01/2021 TdaP Immunization Discontinued 12/01/2021 Influenza Immunization Completed , 05/20/2023, 09/04/2019, Additional history exists Human Papillomavirus (HPV) Immunization Aged Out No longer eligible based on patient's age to complete this topic Meningococcal Immunization (ACWY) Aged Out No longer eligible based on patient's age to complete this topic Rotavirus Immunization Aged Out No lo nger eligible based on patient's age to complete this topic Insurance [facility] Care Teams Store Receiving Specialist Relationship Specialty Start Date End Date Dion Rangel MD [address] [facility] [address] [place] [address] PCP - General Internal Medicine 06/20/18
--- OUTSIDE RECORDS SUMMARY | 2025-01-30 12:13 | XMS_ITS | Encounter Summary ---
Author Organization [employer] Address [address] [place] [address] Care Team Providers Care Senior Court Office Assistant Name Role Phone Erica Portillo MD Primary Care Provider + Encounter Details Date Type Department Care Team (Latest Contact Info) Description 06/17/2007 Outpatient Historical 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
--- OUTSIDE RECORDS SUMMARY | 2025-01-30 12:13 | XMS_ITS | Referral Summary ---
Author Organization [facility] Address [address] [place] [address] Phone Care Team Providers Care Grizzly Worker Name Role Phone Sarah Nobles MD Unavailable [phone] Arianne Carlisle MD Unavailable [phone] Benji Pierre MD Primary Care Provi will Encounters Date Type Department Care Team Description 01/13/2025 Orders Only [facility] Health Information Management [address] [place] [address] Benji Pierre MD 01/13/2025 Nurse Triage [facility] [address] [place] [address] Benji Pierre MD from Last 3 Months Allergies Active Allergy Reactions Criticality Noted Date [...] Continue current medications. Follows with Psych in [place]. Assessment & Plan (03/30/2022 8:02 AM CDT): [...] Continue current medications. Follows with Psych in [place]. Assessment & Plan (03/30/2022 8:02 AM CDT): Patient has a history of bipolar and depression. Not sleeping. Taking lorazepam 1 mg nightly to help her sleep. On multiple medications for the depression and bipolar. He has a psychiatrist. Acquired hypothyroidism 01/07/2020 Assessment & Plan (01/03/2024 3:41 PM CDT): Stable. Patient is not taking levothyroxine. TFTs today. Assessment & Plan (10/07/2020 12:01 PM CREDIT HISTORIAN): Feeling fatigued. Check TSH and free T4 [...] states that she followed with Pulmonary in [place] several years ago and they told her [...] 03/09/2017 Overview (01/03/2024): Follows with Psych in [place]. Assessment & Plan (01/03/2024 3:14 PM CDT): Stable. Continue current medications. Follows with Psych in [place]. Assessment & Plan (03/30/2022 8:01 AM CDT): [...] was referred to Dr. Aldair Shi in 2017 and states she could not get in for an appt. Refer patient to Psych. Wellbutrin XL 150 mg daily. Assessment & Plan (08/16/2017 2:26 PM CREDIT HISTORIAN): Improved with addition of Seroquel. Explained to [...] infection 04/24/2021 024 Overview (04/24/2021): History of [facility] cardiology consultation with senior living advice that infectious illness with compromise in immunity Preop exam for internal medicine 10/07/2020 01/03/2024 Assessment & Plan (10/07/2020 12:00 PM CREDIT HISTORIAN): Scheduled for cataract extraction next week. She is an acceptable candidate for low risk cataract extraction. No further cardiac testing is required. Preop H&P forms completed. Abdominal distension 10/07/2020 024 Assessment & Plan (10/07/2020 12:12 PM CREDIT HISTORIAN): Intermittent abdominal distension, without pain or cramping. [...] provided. Assessment & Plan (10/07/2020 11:13 AM CREDIT HISTORIAN): BMI Follow-up includes: nutrition counseling, exercise counseling [...] 09/19/201804/2020 Assessment & Plan (09/19/2018 11:10 AM CREDIT HISTORIAN): Patient here to today for physical exam. The patient was evaluated and all health maintenance objectives were discussed and addressed. Bipolar affective disorder in remission 12/13/2017 02/26/2020 Uterine fibroid 12/13/2017 02/26/2020 Generalized abdominal pain 12/12/2017 0 02/26/2020 Overview (12/14/2017): Added automatically from request for surgery [id number] Snoring 08/16/2017 02/26/2020 Assessment & Plan (08/16/2017 2:26 PM CREDIT HISTORIAN): Refer to Dr. Holder for evaluation. Chronic [...] 2:26 PM CDT): Will assess response to [place] Thyroid. Subclinical hypothyroidism 03/27/2017 0 01/07/2020 Assessment [...] but cost is an issue. Trial of [place] thyroid 30 grams daily. Will repeat TSH in 2 and 4 months. TSH will 0.45-2.5. Follow-up in 4 months. BMI 30.0-30.9,adult 03/09/2017 02/26/20 Assessment & Plan (08/28/2018 4:26 PM CREDIT HISTORIAN): BMI Follow-up includes: nutrition counseling, exercise counseling [...] Overview (11/25/2016): Vitamin D deficiency Cobalamin deficiency 09/18/20162 024 Overview (11/25/2016): B12 deficiency Migraine 01/03/2014 02/26/2020 Overview (11/22/2016): Migraine headache Well woman exam with routine gynecological exam 08/11/2013 01/03/2024 Assessment & Plan (02/26/2020 12:37 PM CDT): Patient comes in today for a routine physical exam. Health maintenance objectives were discussed and exam performed as noted. Cervical high risk human pap illomavirus (HPV) DNA test positive 08/11/2013 01/03/2024 Overview (04/24/2021): 2012 ASCUS on Pap with reassuring colposcopy S/P [...] 01/03/2024 Arthralgia of multiple joints 05/06/2012 01/03/2024 ALEJANDRO (acute kidney injury) 05/04/2012 Dehydration 05/04/2012 01/03/2024 [...] Supportive care Gastritis without bleeding 0 02/26/2020 Immunizations Immunization Administration Dates Next Due Influenza, Quadrivalent, Spl it, Intramuscular 07/20/2016,06/20/2009 Influenza, Quadrivalent, Spl it, Preservative Free, Intramuscular 09/04/2019,06/22/2015 Influenza, Trivalent, Preser vative Free, Intramuscular 06/14/2012 Influenza, Trivalent, Recomb inant, Egg Free, Preservative Free, Antibiotic Free, IM (FLUBLOK) 06/30/2014 Influenza, Unspecified 05/20/2023,2020(Deferred: Patient Refused),05/20/2018,08/16/2017(Deferre d: Patient decision),06/20/2009 Pneumococcal Conjugate PCV 13 12/29/2011 Pneumococcal Polysaccharide PPV23 12/29/2011 Tdap 12/01/2021 Social History Tobacco Use Types Packs/Day [...] on file Legal Sex Female 1:10 AM CREDIT HISTORIAN Gender Identity Not on file Sexual Orientation [...] 01/03/2024 2:52 PM CDT Plan of Treatment Not on file Procedures Procedure Name Priority Date/Time Associated Diagnosis Comments SCAN - RADIOLOGY/IMAGING 01/13/2025 SCREENING MAMMOGRAM BILATERAL W ULISES Schedule Routine, Read Routine (OP Routine) 01/18/2023 COLONOSCOPY REPORT 09/22/2016 SERUM HEPATITIS PANEL Routine 03/26/2014 5:31 AM CDT from Last 3 Months or Most Recently Relevant to Health Maintenance Results * SCAN - RADIOLOGY/IMAGING (01/13/2025) Anatomical Region Laterality Modality Other Benji Howell al Result * Screening Mammogram Bilateral W Ulises (01/18/2023) Anatomical Region Laterality Modality Breast Bilateral Mammography Historical Provider MD SPICER MAMMO PROCEDURES Lalitha l Result * COLONOSCOPY [...] 03/30/2014 3:00 PM CDT Test performed at [facility] [id number] [place] [id number] Director: ARIANNE HOLT DO,MPH Historical Provider LAB BLOOD ORDERABLES Lalitha l Result HISTORICAL RESULTS from Last 3 Months or Most Recently Relevant to Health Maintenance Insurance [facility] [place] [address] [employer] [place] [employer] [id number] [place] [address] [employer] [id number] [place] [address] Advance Directives For more information, please contact: [phone] * Full Code (Latest Code Status on File) Date Activated Date Inactivated Comments 12/13/2017 2:11 AM 12/14/2017 11:20 PM Care Teams Grizzly Worker Relationship Specialty [place] [id number] [place] [address] PCP - General Internal Medicine 01/07/20 Sarah Nobles MD Consulting Physician Gastroenterology 12/14/17 [place] [address] [facility] [address] [place] [address] Consulting Physician Pulmonary Disease 12/14/17
--- OUTSIDE RECORDS SUMMARY | 2025-01-30 12:13 | XMS_ITS | Encounter Summary ---
Author Organization [facility] Address 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
--- OUTSIDE RECORDS SUMMARY | 2025-01-30 12:13 | XMS_ITS | Encounter Summary ---
Author Organization [facility] Address [address] [place] [address] Care Team Providers Care Edger Runner Name Role Phone Erica Potrillo MD Primary Care Provider + Encounter Details Date Type Department Care Team (Late st Contact Info) Description 08/06/2007 Outpatient Historical [facility] Maternal and Ground Floor [address] [facility] [address] [place] [address] Jean Tucker MD NO ADDRESS ON FILE Social History Tobacco Use Types Packs/Day Years Used Date Smoking Tobacco: Never Assessed Comments Unknown Sex and Gender Information Value Date Recorded Sex Assigned at Not on file Legal 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:59 AM REGIONAL DRIVER Gender Identity Not on file Sexual Orientation Not on file documented as of this encounter Plan of Treatment Not on file documented as of this encounter Visit Diagnoses Not on filedocumented in this encounter Care Teams Edger Runner Relationship Specialty Start Date End Date Erica Portillo MD PCP - General 08/23/15 05/01/19 documented as of this encounter
--- OUTSIDE RECORDS SUMMARY | 2025-01-30 12:13 | XMS_ITS | Clinical Summary ---
Author Organization [facility] [employer] Address [address] [place] [address] Care Team Providers Care Central Office Equipment Installer Name Role Phone Dion Rangel MD Primary Care Provider [phone] Source Comments [facility] [employer],non-owned Affiliates and Associated Physician Practices is amultiple site organization consisting of ambulatory clinics and hospital sitesin [place], [place], [place] and [place]. This disclosure is being madepursuant to the Care Everywhere program and may not contain all information available regarding this patient. Last updated 18.[facility] [employer] Allergies Active Allergy Reactions Criticality Noted Date Comments Codeine Urticaria Medium 12/07/2016 Codeine Rash Medium 08/23/2017 Medications * Be aware that medications may not be up to date on this document. Alwaysverify current medications with the patient. methylPREDNISol one (MEDROL DOSEPAK) 4 MG tablet Take by mouth as directed 1 Each 7 Active Additional Information Patient not taking.Reported on 01/11/2022 albuterol HFA (PROAIR HFA) 108 (90 BASE) MCG/ACT inhaler Inhale 2 Puffs by mouth every 4 hours as needed for Shortness of Breath, Wheezing or Cough 1 Inhaler 7 Active Additional Information Patient not taking.Reported on 01/11/2022 QUEtiapine Fumarate (SEROQUEL PO) Active MELOXICAM PO Active oxyCODONE, immediate release, (ROXICODONE) 5 MG tablet Take 1 (one) tablet by mouth every 6 hours as needed for Pain 12 tablet 2 Active Additional Information Patient not taking.Reported on 12/21/2021 buPROPion XL 24hr (WELLBUTRIN-XL) 150 MG tablet 1 Active Active Problems Problem Noted Date Diagnosed Date Open dislocation of finger of right hand 022 Immunizations Immunization Administration Dates Next Due TDAP (7yrs+) 12/01/2021 Social History Tobacco Use Types Packs/Day Years Used Date Smoking Tobacco: Never Smokeless Tobacco: Never Tobacco Cessation:Counseling Given: No AUDIT-C Answer Date Recorded Q1: How often do you have a drink containing alc ohol? Monthly or less 12/01/2021 Q2: How many drinks containi ng alcohol do you have on a typical day when you are drinking? 1 or 2 12/01/2021 Q3: How often do you have si x or more drinks on one occasion? Never 12/01/2021 Comments No Sex and Gender Information Value Date Recorded Sex Assigned at Not on file Legal Sex Female 3:29 PM CDT Gender Identity Not on file Sexual Orientation Not on file Last Filed Vital Signs Vital Sign Reading Time Taken Comments Blood Pressure 109/75 01/11/2022 10:27 AM CDT Pulse 78 01/11/2022 10:27 AM CDT Temperature 36.7 C (98 F) 12/01/2021 9:53 AM CDT Respiratory Rate 19 12/01/2021 12:52 PM CDT Oxygen Saturation 96% 12/01/2021 12:52 PM CDT Inhaled Oxygen Concentration - - Weight 89.8 kg (198 lb) 01/11/2022 10:27 AM CDT Height 170.2 cm (5' 7) 08/23/2017 3:10 PM YARN SKEINS EXAMINER Body Mass Index 31.01 08/23/2017 3:10 PM YARN SKEINS EXAMINER Plan of Treatment Health Maintenance Due Date Last Done Comments COLOGUARD (AGES 45-75) - [place] CA SCREENING 1969 COLON MONITORING 1969 COLONOSCOPY - [place] CA SCREENING 1969 CT COLONOGRAPHY - [place] CA SCREENING 1969 Colorectal Cancer Screening 1969 FIT - COL[place] CA SCREENING 1969 FLEX SIG - [place] CA SCREENING 1969 LIPID TESTING 1969 MAMMOGRAM 1969 HIV SCREENING 1984 HEPATITIS C SCREENING 08/14/1987 HEPATITIS B VACCINE (1 of 3 - 19+ 3-dose series) 1988 PAP SMEAR 1990 PNEUMOCOCCAL VACCINE 50+ (1 of 1 - PCV) 2019 ZOSTER VACCINE (1 of 2) 2019 COVID-19 VACCINE (1 - season) 2024 DEPRESSION SCREENING 08/20/2024 INFLUENZA VACCINE (Season Ended) 2025 09/04/2019, 05/20/2018, 07/20/2016, Additional history exists DTAP/TDAP/TD VACCINES (2 - Td or Tdap) 12/02/2031 12/01/2021 HIB VACCINE Aged Out No longer eligi ble based on patient's age to complete this topic HPV VACCINE Aged Out No longer eligi ble based on patient's age to complete this topic MENINGOCOCCAL (Group B) VACCINE SHARED DECISION-MAKING Aged Out No longer eligible based on patient's age to complete this topic MENINGOCOCCAL GROUPS A/C/Y/W VACCINE Aged Out No longer eligible based on patient's age to complete this topic Insurance ANTH * Guarantor: ARMIDA MCELROY Account Type Relation to Patient Date of Phone Billing Address Personal/Family [address] [place] [address] [employer] [phone] [place] [address] Care Teams Central Office Equipment Installer Relationship Specialty Start Date End Date Dion Rangel MD [address] [place] [id number] PCP - General Internal Medicine 12/07/16
--- OUTSIDE RECORDS SUMMARY | 2025-01-30 12:13 | XMS_ITS ---
Author Organization [facility] Address [address] [place] [address] Care Team Providers Care High School Foreign Language Tutor Name Role Phone Belle Tinoco Unavailable [phone] REASON FOR VISIT R/S - Pt is Sick(Has Rotavirus). Contagious virus Social History Sex Assigned At : Social History Observation Description Sex Assigned At Female Encounters Encounter Location Date Provider Diagnosis [facility] [address] [facility] [address] [place] [address] 10/21/2024 Belle Tinoco Plan Of Treatment Next Appt Details Provider Name:Belle fernandez, 03/30/2025 03:00:00 PM, [address], [place], [address], Progress Notes * ILAN GALLAGHER RDOB:[birth year] (54 yo F)Acc No.[id number]:10/21/2024 Patient: ILAN CHAVEZ Provider: Milad Tinoco :1970 A ge:54 Y S ex:Female Date:10/21/2024 Address:[address], [place], [place] Subjective: * Chief Complaints: * 1 . R/S - Pt is Sick(Has Rotavirus). Contagious virus. * Medical History: Objective: * Vitals: Assessment: Plan: * Treatment: * Billing Information: * Visit Code: * Procedure Codes: * Electronic signature of William Tinoco on 01/30/2025 at 12:12 PM CDT Sign off status: Pending * Provider: Milad Tinoco Date: 0 10/21/2024 Generated for Alejandro stewart/Kalie/Maricel on: 0 01/30/2025 12:12 PM CDT
--- OUTSIDE RECORDS SUMMARY | 2025-01-30 12:13 | XMS_ITS | Encounter Summary ---
Author Organization [facility] Address [address] [place] [address] Care Team Providers Care Miter Sawyer Name Role Phone Erica Portillo MD Primary Care Provider + Encounter Details Date Type Department Care Team (Late st Contact Info) Description 07/15/2007 Outpatient Historical [facility] Maternal and Ground Floor [address] [facility] [address] [place] [address] Jean Tucker MD NO ADDRESS ON FILE Social History Tobacco Use Types Packs/Day Years Used Date Smoking Tobacco: Never Assessed Comments Unknown Sex and Gender Information Value Date Recorded Sex Assigned at Not on file Legal 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:59 AM 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
--- OUTSIDE RECORDS SUMMARY | 2025-01-30 12:13 | XMS_ITS | Encounter Summary ---
Author Organization [employer] [facility] Address [address] [place] [address] Care Team Providers Care Fiber Optic Central Office Installer Name Role Phone Erica Portillo MD Primary Care Provider + Encounter Details Date Type Department Care Team (Latest Contact Info) Description 07/04/2007 Inpatient Historical [facility] [place], [place] [address] [place] [address] Madina Parrish MD NO ADDRESS ON FILE Hemorrhage from Placenta Previa, Antepartum (Primary Dx) Social History Tobacco Use Types Packs/Day Years Used Date Smoking Tobacco: Never Assessed Comments Unknown Sex and Gender Information Value Date Recorded Sex Assigned at Not on file Legal 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:59 AM OFFICE SUPPORT ASSOCIATE Gender Identity Not on file Sexual Orientation Not on file documented as of this encounter Plan of Treatment Not on file documented as of this encounter Procedures Procedure Name Priority Date/Time Associated Diagnosis Comments CBC WITH DIFFERENTIAL Routine 07/04/2007 10:45 PM OFFICE SUPPORT ASSOCIATE CBC WITH DIFFERENTIAL Routine 07/04/2007 10:45 PM OFFICE SUPPORT ASSOCIATE documented in this encounter Results * (ABNORMAL) CBC WITH DIFFERENTIAL (07/04/2007 10:45 PM OFFICE SUPPORT ASSOCIATE) NEUTROPHILS 70 45 - 70 % INTERFAC E SYSTEM LYMPHOCYTES 17 16 - 45 % INTERFAC E SYSTEM MONOCYTES 12 3 - 13 % INTERFACE SYSTEM EOSINOPHILS 1 0 - 7 % INTERFAC E SYSTEM BASOPHILS 0 0 - 2 % INTERFACE SYSTEM NEUTROPHIL ABSOLUTE 7.66(H) 1.90 - 7.00 K/uL INTERFACE SYSTEM LYMPHOCYTE ABSOLUTE 1.85 0.70 - 4.50 K/uL INTERFACE SYSTEM MONOCYTE ABSOLUTE 1.30 0.10 - 1.30 K/uL INTERFACE SYSTEM EOSINOPHIL ABSOLUTE 0.11 0.00 - 0.70 K/uL INTERFACE SYSTEM BASOPHILS ABSOLUTE 0.03 0.00 - 0.20 K/uL INTERFACE SYSTEM 07/04/2007 10:4 5 PM OFFICE SUPPORT ASSOCIATE us Madina Parrish MD HEMATOLOGY ORDERABLES Ed ited Performing Organization Address City/State/[facility] Co de Phone Number INTERFACE SYSTEM Refer to clinic/hospital department * (ABNORMAL) CBC WITH DIFFERENTIAL (07/04/2007 10:45 PM OFFICE SUPPORT ASSOCIATE) WBC 11.0(H) 4.0 - 9.8 K/uL INTERFACE SYSTEM RBC 3.56(L) 3.90 - 4.90 M/uL INTERFACE SYSTEM HEMOGLOBIN 11.2(L) 11.8 - 14.8 g/dL INTERFACE SYSTEM HEMATOCRIT 32.5(L) 35.5 - 44.0 % INTERFACE SYSTEM MCV 91.3 82.0 - 99.0 fL INTERFACE SYSTEM MCH 31.5 27.2 - 32.6 pg INTERFACE SYSTEM MCHC 34.5 31.5 - 35.5 % INTERFACE SYSTEM RDW 13.6 11.5 - 14.5 % INTERFACE SYSTEM RDW-STDEV 44.2 37.1 - 48.7 fL INTERFACE SYSTEM PLATELETS 178 140 - 350 K/uL INTERFACE SYSTEM MPV 10.4 9.3 - 12.4 fL INTERFACE SYSTEM 07/04/2007 10:4 5 PM OFFICE SUPPORT ASSOCIATE Madina Parrish MD HEMATOLOGY ORDERABLES Ed ited Performing Organization Address City/State/[facility] Co de Phone Number INTERFACE SYSTEM Refer to clinic/hospital department documented in this encounter Visit Diagnoses Diagnosis Hemorrhage from placenta previa, antepartum- Primary documented in this encounter Care Teams Fiber Optic Central Office Installer Relationship Specialty Start Date End Date Erica Portillo MD PCP - General 08/23/15 05/01/19 documented as of this encounter
--- OUTSIDE RECORDS SUMMARY | 2025-01-30 12:13 | XMS_ITS | Encounter Summary ---
Author Organization [facility] Address [address] [place] [address] Care Team Providers Care Mounter Flutes And Piccolos Name Role Phone Erica Portillo MD Primary Care Provider + Encounter Details Date Type Department Care Team (Late st Contact Info) Description 08/06/2007 Outpatient Historical [facility] Maternal and Ground Floor [address] [facility] [address] [place] [address] Jean Tucker MD NO ADDRESS ON FILE Social History Tobacco Use Types Packs/Day Years Used Date Smoking Tobacco: Never Assessed Comments Unknown Sex and Gender Information Value Date Recorded Sex Assigned at Not on file Legal 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:59 AM PATIENT ACCOUNTS 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
--- OUTSIDE RECORDS SUMMARY | 2025-01-30 12:13 | XMS_ITS | Encounter Summary ---
Author Organization [employer] [facility] Address [address] [place] [address] Care Team Providers Care Buggyman Name Role Phone Erica Portillo MD Primary Care Provider + Encounter Details Date Type Department Care Team (Late st Contact Info) Description 08/06/2007 Outpatient Historical [facility] Madina Parrish MD NO ADDRESS ON FILE Deliv Social History Tobacco Use Types Packs/Day Years Used Date Smoking Tobacco: Never Assessed Comments Unknown Sex and Gender Information Value Date Recorded Sex Assigned at Not on file Legal 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:59 AM ABLE SEAMAN Gender Identity Not on file Sexual Orientation Not on file documented as of this encounter Plan of Treatment Not on file documented as of this encounter Procedures Procedure Name Priority Date/Time Associated Diagnosis Comments CBC WITH DIFFERENTIAL Routine 08/06/2007 11:31 AM ABLE SEAMAN CBC WITH DIFFERENTIAL Routine 08/06/2007 11:31 AM ABLE SEAMAN URINALYSIS W/REFLEX MICROSCOPIC Routine 08/06/2007 11:31 AM ABLE SEAMAN documented in this encounter Results * (ABNORMAL) URINALYSIS (08/06/2007 11:31 AM ABLE SEAMAN) COLOR UA Pale Yellow INTERFAC E SYSTEM CLARITY UA Clear Clear INTERFACE SYSTEM SPECIFIC GRAVITY UA 1.004 1.001 - 1.035 INTERFACE SYSTEM PH UA 6.0 5.0 - 8.0 INTERFACE SYSTEM LEUKOCYTE ESTERASE UA 3+(A) Negative INTERFACE SYSTEM NITRITE UA Negative Negative INTERFACE SYSTEM PROTEIN UA Negative Negative INTERFACE SYSTEM GLUCOSE UA Negative Negative INTERFACE SYSTEM KETONES UA Negative Negative INTERFACE SYSTEM UROBILINOGEN UA <1 <=1 mg/dL INTE RFACE SYSTEM BILIRUBIN UA Negative Negative INTERFA CE SYSTEM BLOOD UA Negative Negative INTERFACE SYSTEM WBC UA 3 0 - 5 /HPF INTERFACE SYSTEM RBC UA 3 0 - 4 /HPF INTERFACE SYSTEM BACTERIA UA 1+(A) None Seen /HPF INTERFACE SYSTEM EPITHELIAL CELLS, URINE 2-5 /HPF INTERFACE SYSTEM 08/06/2007 11:3 1 AM ABLE SEAMAN Madina Parrish MD URINE ORDERABLES Edited Performing Organization Address City/[facility] Co de Phone Number INTERFACE SYSTEM Refer to clinic/hospital department * (ABNORMAL) CBC WITH DIFFERENTIAL (08/06/2007 11:31 AM ABLE SEAMAN) NEUTROPHILS 76(H) 45 - 70 % INTERFAC E SYSTEM LYMPHOCYTES 14(L) 16 - 45 % INTERFAC E SYSTEM MONOCYTES 9 3 - 13 % INTERFACE SYSTEM EOSINOPHILS 0 0 - 7 % INTERFAC E SYSTEM BASOPHILS 0 0 - 2 % INTERFACE SYSTEM NEUTROPHIL ABSOLUTE 7.25(H) 1.90 - 7.00 K/uL INTERFACE SYSTEM LYMPHOCYTE ABSOLUTE 1.33 0.70 - 4.50 K/uL INTERFACE SYSTEM MONOCYTE ABSOLUTE 0.85 0.10 - 1.30 K/uL INTERFACE SYSTEM EOSINOPHIL ABSOLUTE 0.04 0.00 - 0.70 K/uL INTERFACE SYSTEM BASOPHILS ABSOLUTE 0.02 0.00 - 0.20 K/uL INTERFACE SYSTEM 08/06/2007 11:3 1 AM ABLE SEAMAN Madina Parrish MD HEMATOLOGY ORDERABLES Ed ited INTERFACE SYSTEM Refer to clinic/hospital department * (ABNORMAL) CBC WITH DIFFERENTIAL (08/06/2007 11:31 AM ABLE SEAMAN) WBC 9.5 4.0 - 9.8 K/uL INTERFACE SYSTEM RBC 3.85(L) 3.90 - 4.90 M/uL INTERFACE SYSTEM HEMOGLOBIN 12.1 11.8 - 14.8 g/dL INTERFACE SYSTEM HEMATOCRIT 34.7(L) 35.5 - 44.0 % INTERFACE SYSTEM MCV 90.1 82.0 - 99.0 fL INTERFACE SYSTEM MCH 31.4 27.2 - 32.6 pg INTERFACE SYSTEM MCHC 34.9 31.5 - 35.5 % INTERFACE SYSTEM RDW 13.4 11.5 - 14.5 % INTERFACE SYSTEM RDW-STDEV 43.6 37.1 - 48.7 fL INTERFACE SYSTEM PLATELETS 175 140 - 350 K/uL INTERFACE SYSTEM MPV 10.6 9.3 - 12.4 fL INTERFACE SYSTEM 08/06/2007 11:3 1 AM ABLE SEAMAN us Madina Parrish MD HEMATOLOGY ORDERABLES Ed ited INTERFACE SYSTEM Refer to clinic/hospital department documented in this encounter Visit Diagnoses Diagnosis delivery, without mention of indication, delivered, with or without mention of antepartum condition documented in this encounter Care Teams Buggyman Relationship Specialty Start Date End Date Erica Portillo MD PCP - General 08/23/15 05/01/19 documented as of this encounter
--- OUTSIDE RECORDS SUMMARY | 2025-01-30 12:13 | XMS_ITS | Encounter Summary ---
Author Organization [facility] Address [address] [place] [address] Care Team Providers Care Parking Meter Attendant Name Role Phone Erica Portillo MD Primary Care Provider + Encounter Details Date Type Department Care Team (Late st Contact Info) Description 07/08/2007 Outpatient Historical [facility] Maternal and Ground Floor S [facility] [address] [place] [address] Tal Montiel MD [address] [address] Social History Tobacco Use Types Packs/Day Years Used Date Smoking Tobacco: Never Assessed Comments Unknown Sex and Gender Information Value Date Recorded Sex Assigned at Not on file Legal 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
--- OUTSIDE RECORDS SUMMARY | 2025-01-30 12:13 | XMS_ITS | Encounter Summary ---
Author Organization [facility] Address [address] [place] [address] Care Team Providers Care Legal Support Analyst Name Role Phone Erica Portillo MD Primary Care Provider + Encounter Details Date Type Department Care Team (Late st Contact Info) Description 09/11/2009 [facility] Blood Flow [address] [place] [address] Walter Payne MD [address] 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
--- OUTSIDE RECORDS SUMMARY | 2025-01-30 12:13 | XMS_ITS | Encounter Summary ---
Author Organization [facility] Address [address] [place] [address] Care Team Providers Care Nanotechnology Engineering Technologist Name Role Phone Erica Portillo MD Primary Care Provider + Encounter Details Date Type Department Care Team (Late st Contact Info) Description 07/23/2007 Outpatient Historical [facility] Maternal and Ground Floor S [facility] [address] [place] [address] Pierce Pascual MD NO ADDRESS ON FILE Social History Tobacco Use Types Packs/Day Years Used Date Smoking Tobacco: Never Assessed Comments Unknown Sex and Gender Information Value Date Recorded Sex Assigned at Not on file Legal 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:59 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
== END 2025-01-30 12:08 | disposition home or self-care (01) ==
PROVIDERS: PCP Internal Medicine; Visit Provider Orthopaedic Surgery
DX: M17.11 Unilateral primary osteoarthritis, right knee (principal)
CPT/HCPCS: 73564

== ENCOUNTER 2025-05-15 05:13 | Emergency (ER) | payer BC, SELFPAY ==
--- OUTSIDE RECORDS SUMMARY | 2024-10-21 10:00 | XMS_ITS ---
Author Organization [facility] [employer] Address [address] [facility] [address] [place] [address] Care Team Providers Care Glassware Selector Name Role Phone Belle Tinoco Unavailable [phone] REASON FOR VISIT R/S - Pt is Sick(Has Rotavirus). Contagious virus Social History Sex Assigned At : Social History Observation Description Sex Assigned At Female Encounters Encounter Location Date Provider Diagnosis [facility] [employer] [place] [address] [facility] [address] [place] [address] 10/21/2024 Belle Tinoco Plan Of Treatment Next Appt Details Provider Name:Belle fernandez, 09/21/2025 02:45:00 PM, [address], [facility] [address], [place], [address], Progress Notes * ILAN GALLAGHER RDOB:[birth year] (54 yo F)Acc No.[id number]:10/21/2024 Patient: ILAN CHAVEZ Provider: Milad Tinoco :1970 A ge:54 Y S ex:Female Date:10/21/2024 Address:[address], [place], [id number] Subjective: * Chief Complaints: * R /S - Pt is Sick(Has Rotavirus). Contagious virus Billing Information: * Procedure Codes: * Electronic signature of William Tinoco on 05/15/2025 at 05:15 AM CDT Sign off status: Pending * Provider: Milad Tinoco Date: 0 10/21/2024 Generated for Alejandro stewart/Kalie/Ilsaitting on: 0 05/15/2025 05:15 AM CDT
--- NOTE | ~2025-05-15 | XR_ITS ---
Examination: XR knee LT 3V Clinical History: knee pain, hx arthritis and effusion Comparison: X-rays 04/21/2022 Technique: Portable AP Findings/impression: 1. No fracture, dislocation, or effusion left knee. 2. Mild medial compartment joint space narrowing with small marginal osteophytes. Reviewed, dictated and finalized at location R.
--- OUTSIDE RECORDS SUMMARY | 2025-05-15 05:15 | XMS_ITS | Encounter Summary ---
Author Organization [facility] [place] [facility] Address [address] [place] [address] Care Team Providers Care Fundraising Manager Name Role Phone Erica Portillo MD Primary Care Provider + Encounter Details Date Type Department Care Team (Late st Contact Info) Description 06/17/2007 Outpatient Historical [facility] Maternal and Ground Floor S [facility] [address] [place] [id number] Jean Tucker MD NO ADDRESS ON FILE Social History Tobacco Use Types Packs/Day Years Used Date Smoking Tobacco: Never Assessed Comments Unknown Sex and Gender Information Value Date Recorded Sex Assigned at Not on file Legal 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
--- OUTSIDE RECORDS SUMMARY | 2025-05-15 05:15 | XMS_ITS | Encounter Summary ---
Author Organization [employer] Address 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
--- OUTSIDE RECORDS SUMMARY | 2025-05-15 05:16 | XMS_ITS | Encounter Summary ---
Author Organization [facility] Address [address] [place] [address] Care Team Providers Care Assistant Associate Full Professor Name Role Phone Erica Portillo MD Primary [...] on file Legal 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:59 AM QUALITY CONTROL CHECKER Gender Identity Not on file Sexual Orientation Not on file documented as of this encounter Plan of Treatment Not on file documented as of this encounter Procedures Procedure Name Priority Date/Time Associated Diagnosis Comments CBC WITH DIFFERENTIAL Routine 08/06/2007 11:31 AM QUALITY CONTROL CHECKER CBC WITH DIFFERENTIAL Routine 08/06/2007 11:31 AM QUALITY CONTROL CHECKER URINALYSIS W/REFLEX MICROSCOPIC Routine 08/06/2007 11:31 AM QUALITY CONTROL CHECKER documented in this encounter Results * (ABNORMAL) URINALYSIS (08/06/2007 11:31 AM QUALITY CONTROL CHECKER) COLOR UA Pale Yellow INTERFAC E SYSTEM [...] /HPF INTERFACE SYSTEM 08/06/2007 11:3 1 AM QUALITY CONTROL CHECKER Madina Parrish MD URINE ORDERABLES Edited Performing Organization Address City/[facility] Co de Phone Number INTERFACE SYSTEM Refer to clinic/hospital department * (ABNORMAL) CBC WITH DIFFERENTIAL (08/06/2007 11:31 AM QUALITY CONTROL CHECKER) NEUTROPHILS 76(H) 45 - 70 % INTERFAC [...] K/uL INTERFACE SYSTEM 08/06/2007 11:3 1 AM QUALITY CONTROL CHECKER Madina Parrish MD HEMATOLOGY ORDERABLES Ed ited INTERFACE SYSTEM Refer to clinic/hospital department * (ABNORMAL) CBC WITH DIFFERENTIAL (08/06/2007 11:31 AM QUALITY CONTROL CHECKER) WBC 9.5 4.0 - 9.8 K/uL INTERFACE [...] fL INTERFACE SYSTEM 08/06/2007 11:3 1 AM QUALITY CONTROL CHECKER us Madina Parrish MD HEMATOLOGY ORDERABLES Ed ited INTERFACE SYSTEM Refer to clinic/hospital department documented in this encounter Visit Diagnoses Diagnosis delivery, without mention of indication, delivered, with or without mention of antepartum condition documented in this encounter Care Teams Assistant Associate Full Professor Relationship Specialty Start Date End Date Erica Portillo MD PCP - General 08/23/15 05/01/19 documented as of this encounter
--- OUTSIDE RECORDS SUMMARY | 2025-05-15 05:16 | XMS_ITS | Clinical Summary ---
Author Organization [facility] Address [address] [place] [address] Phone Care Team Providers Care Playground Worker Name Role Phone Unavailable Unavailable Unavailable Reason for Visit and Chief Complaint NEW PATIENT VISIT Plan of Treatment No Plan of Treatment Recorded Assessments Includes: Assessments from this encounter No Assessments Recorded Medical Equipment - Implanted Devices Includes: Current Devices No Medical Equipment Recorded Medications Includes: Medications discussed during this encounter and other current Medications Current Medications (continue as prescribed) levoFLOXacin 500 MG Oral Tablet 02/17/2021 Provider: MIGUE FLAHERTY Diagnosis: Acute maxillary sinusitis, unspecified One tablet daily Last Documented On 1 6:04PM By MIGUE FLAHERTY ; [facility] Escitalopram Oxalate 20 MG Oral Tablet 03/21/2020 Pr ovider: Diagnosis: Last Documented On 0 2:12PM By Brenda Valencia MA ; [facility] Estradiol 1 MG Oral Tablet 03/21/2020 Provider: Diagnosis: Last Documented On 0 2:13PM By Brenda Valencia MA ; [facility] Progesterone Micronized 100 MG Oral Capsule 03/21/2020 Provider: Diagnosis: Last Documented On 0 2:13PM By Brenda Valencia MA ; [facility] buPROPion HCl ER (XL) 150 MG Oral Tablet Extended Release 24 Hour 03/21/2020 Provider: Diagnosis: Last Documented On 0 2:14PM By Brenda Valencia MA ; [facility] Ciprofloxacin HCl 500 MG Oral Tablet 03/21/2020 Provider: DORCAS MUNOZ Diagnosis: 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 One tablet twice a day Last Documented On 0 2:27PM By Dorcas MUNOZ ; [facility] metroNIDAZOLE 500 MG Oral Tablet 03/21/2020 Provider: DORCAS MUNOZ Diagnosis: 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 One tablet twice a day Last Documented On 0 2:28PM By Dorcas MUNOZ ; [facility] Medications Administered Includes: Administered Medications from this encounter No Administered Medications Recorded Results Includes: Results discussed during this encounter No Results Recorded For Specified Dates History of Present Illness Includes: History of Present Illness from this encounter No History of Present Illness Recorded Social History No Social History Recorded - Smoking Status Unknown Medical History Includes: Medical History addressed during this encounter No Medical History Recorded Family History Includes: Family History addressed during this encounter No Family History Recorded Review of Systems Includes: Review of Systems from this encounter No Review of Systems Recorded Mental Status Includes: Mental Status from this encounter No Mental Status Recorded Functional Status Includes: Functional Status from this encounter No Functional Status Recorded Physical Exam Includes: Physical Exam from this encounter No Physical Exam Recorded Allergies Includes: Active Allergies Substance Type Reaction Onset Date Resolved Date Statu s Codeine Allergy Hives / Urticaria 03/21/2020 A ctive Last Documented On 0 2:14PM ; [facility] Encounters Encounter Provider Location Date Check-In Time Check- Out Time Diagnosis NEW [facility] 1 3:30PM 11:59PM Insurance Includes: Active Insurance Policies No Insurance Coverage Recorded Guarantor Relationship Effective Dates Guarantor Ph one ILAN GALLAGHER [id number] Clinical Notes Includes: Clinical Notes from this encounter No Clinical Notes Recorded
--- OUTSIDE RECORDS SUMMARY | 2025-05-15 05:16 | XMS_ITS | Encounter Summary ---
Author Organization [facility] Address [address] [place] [address] Care Team Providers Care Etcher Printed Circuit Boards Name Role Phone Erica Portillo MD Primary Care Provider + Encounter Details Date Type Department Care Team (Late st Contact Info) Description 09/11/2009 [facility] Supp Svcs Blood Flow [address] [place] [address] Walter Payne MD [address] 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
--- OUTSIDE RECORDS SUMMARY | 2025-05-15 05:16 | XMS_ITS ---
Author Organization [facility] Address [address] [place] [address] Phone Care Team Providers Care Automotive Service Writer Name Role Phone Unavailable Unavailable Unavailable Plan of Treatment Findings Encounter Date Ordered follow-up visit in 1 -2 weeks with an office visit or sooner if symptoms persist or worsen COVID SICK VISIT- ESTABLISHED PATIENT with MIGUE KRA[facility] 02/17/2021 Last Documented On 1 6:05PM ; [facility] Ordered patient to call if gonzález wiseman develops COVID SICK VISIT- ESTABLISHED PATIENT with MIGUE K[facility] 02/17/2021 Last Documented On 1 6:05PM ; [facility] Ordered return to the clinic if condition worsens or new symptoms arise COVID SICK VISIT- ESTABLISHED PATIENT with MIGUE KRA[facility] 02/17/2021 Last Documented On 1 6:05PM ; [facility] Instructions to patient Go to the emergency room if condition worsens Last Documented On 1 6:04PM ; [facility] Watch for signs/symptoms of infection Last Documented On 1 6:04PM ; [facility] Watch for signs/symptoms of infection, return to the clinic if seen Last Documented On 1 6:04PM ; [facility] Education and Decision Aids were provided during visit for: Patient education about anti biotics: need to finish even if feeling better Last Documented On 1 6:04PM ; [facility] Assessments Includes: Assessments for all patient encounters Findings Encounter Date Acute sinusitis COVID SICK VISIT- ES TABLISHED PATIENT with MIGUE FLAHERTY 02/17/2021 Last Documented On 1 6:05PM ; [facility] Diverticulitis of colon with out perforation or abscess WALK-IN CLINIC SICK VISIT with DORCASPeg MUNOZ 03/21/2020 Last Documented On 0 2:31PM ; [facility] Instructions Includes: Instructions for all patient encounters Instructions to patient Go to the emergency room if condition worsens Last Documented On 1 6:04PM ; [facility] Watch for signs/symptoms of infection Last Documented On 1 6:04PM ; [facility] Watch for signs/symptoms of infection, return to the clinic if seen Last Documented On 1 6:04PM ; [facility] Education and Decision Aids were provided during visit for: Patient education about anti biotics: need to finish even if feeling better Last Documented On 1 6:04PM ; [facility] Medical Equipment - Implanted Devices Includes: Current and historical Devices No Medical Equipment Recorded Medications Includes: Current and historical Medications Current Medications (continue as prescribed) levoFLOXacin 500 MG Oral Tablet 02/17/2021 Provider: MIGUE FLAHERTY Diagnosis: Acute maxillary sinusitis, unspecified One tablet daily Last Documented On 1 6:04PM By MIGUE KRAUS BOOKING MANAGERIAIN ; [facility] Escitalopram Oxalate 20 MG Oral Tablet 03/21/2020 Pr ovider: Diagnosis: Last Documented On 0 2:12PM By Brenda Valencia MA ; [facility] Estradiol 1 MG Oral Tablet 03/21/2020 Provider: Diagnosis: Last Documented On 0 2:13PM By Brenda Valencia MA ; [facility] Progesterone Micronized 100 MG Oral Capsule 03/21/2020 Provider: Diagnosis: Last Documented On 0 2:13PM By Brenda Valencia MA ; [facility] buPROPion HCl ER (XL) 150 MG Oral Tablet Extended Release 24 Hour 03/21/2020 Provider: Diagnosis: Last Documented On 0 2:14PM By Brenda Valencia MA ; [facility] Ciprofloxacin HCl 500 MG Oral Tablet 03/21/2020 Provider: DORCAS MUNOZ Diagnosis: 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 One tablet twice a day Last Documented On 0 2:27PM By Dorcas MUNOZ ; [facility] metroNIDAZOLE 500 MG Oral Tablet 03/21/2020 Provider: DORCAS MUNOZ Diagnosis: 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 One tablet twice a day Last Documented On 0 2:28PM By Dorcas MUNOZ ; [facility] Medications Administered Includes: Administered Medications in patient's chart No Administered Medications Recorded Results Includes: Results from 05/15/2024 through 05/15/2025 No Results Recorded For Specified Dates History of Present Illness History of Present Illness not supported for this document type No History of Present Illness Recorded Social History Description Last Updated Non-smoker 03/21/2020 Last Documented On 0 2:31PM ; [facility] Smoking Status Unknown Medical History Includes: Medical History in patient's chart No Medical History Recorded Family History Includes: Family History in patient's chart No Family History Recorded Review of Systems Review of Systems not supported for this document type No Review of Systems Recorded Mental Status No Mental Status Recorded Functional Status No Functional Status Recorded Physical Exam Physical Exam not supported for this document type No Physical Exam Recorded Allergies Includes: Active, inactive, and resolved Allergies Substance Type Reaction Onset Date Resolved Date Statu s Codeine Allergy Hives / Urticaria 03/21/2020 A ctive Last Documented On 0 2:14PM ; [facility] Insurance Includes: Active Insurance Policies No Insurance Coverage Recorded Guarantor Relationship Effective Dates Guarantor Ph one ILAN GALLAGHER [id number] Clinical Notes Includes: Signed Clinical Notes starting from 09/08/2022 No Clinical Notes Recorded
--- OUTSIDE RECORDS SUMMARY | 2025-05-15 05:16 | XMS_ITS | Clinical Summary ---
Author Organization [facility] Address [address] [place] [address] Phone Care Team Providers Care Senior Contract Specialist Name Role Phone Unavailable Unavailable Unavailable Reason for Visit and Chief Complaint COVID SICK VISIT- ESTABLISHED PATIENT Plan of Treatment - Return to the clinic if condition worsens or new symptoms arise - Last Documented On 02/17/2021 6:05PM ; [facility] - Follow-up visit in 1-2 weeks with an office visit or sooner if symptoms persist or worsen - Last Documented On 02/17/2021 6:05PM ; [facility] - Patient to call if problem develops - Last Documented On 02/17/2021 6:05PM ; [facility] Instructions to patient Go to the emergency room if condition worsens Last Documented On 6:04PM ; [facility] Watch for signs/symptoms of infection Last Documented On 6:04PM ; [facility] Watch for signs/symptoms of infection, return to the clinic if seen Last Documented On 6:04PM ; [facility] Education and Decision Aids were provided during visit for: Patient education about anti biotics: need to finish even if feeling better Last Documented On 6:04PM ; [facility] Assessments Includes: Assessments from this encounter Findings - Acute sinusitis - Last Documented On 02/17/2021 6:05PM ; [facility] Instructions Includes: Instructions from this encounter Instructions to patient Go to the emergency room if condition worsens Last Documented On 1 6:04PM ; [facility] Watch for signs/symptoms of infection Last Documented On 1 6:04PM ; [facility] Watch for signs/symptoms of infection, return to the clinic if seen Last Documented On 1 6:04PM ; [facility] Education and Decision Aids were provided during visit for: Patient education about anti biotics: need to finish even if feeling better Last Documented On 1 6:04PM ; [facility] Medical Equipment - Implanted Devices Includes: Current Devices No Medical Equipment Recorded Medications Includes: Medications discussed during this encounter and other current Medications New / Renewed during this visit MIGUE FLAHERTY on 02/17/2021 levoFLOXacin 500 MG Oral Tablet Provider: MIGUE FLAHERTY 10 day supply: 10 tablet, 0 refills Diagnosis: Acute maxillary sinusitis, unspecified One tablet daily Pharmacy: [address], [id number] - Last Documented On 1 6:04PM By MIGUE COLE-PHUONG ; [facility] Current Medications (continue as prescribed) Escitalopram Oxalate 20 MG Oral Tablet 03/21/2020 Pr ovider: Diagnosis: Last Documented On 0 2:12PM By Brenda Valencia MA ; [facility] Estradiol 1 MG Oral Tablet 03/21/2020 Provider: Diagnosis: Last Documented On 0 2:13PM By Brenda Valencia MA ; [facility] Progesterone Micronized 100 MG Oral Capsule 03/21/2020 Provider: Diagnosis: Last Documented On 0 2:13PM By Brenda Valencia MA ; [facility] buPROPion HCl ER (XL) 150 MG Oral Tablet Extended Release 24 Hour 03/21/2020 Provider: Diagnosis: Last Documented On 0 2:14PM By Brenda Valencia MA ; [facility] Ciprofloxacin HCl 500 MG Oral Tablet 03/21/2020 Provider: DORCAS MUNOZ Diagnosis: 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 One tablet twice a day Last Documented On 0 2:27PM By Dorcas MUNOZ ; [facility] metroNIDAZOLE 500 MG Oral Tablet 03/21/2020 Provider: DORCAS MUNOZ Diagnosis: 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 One tablet twice a day Last Documented On 0 2:28PM By Dorcas MUNOZ ; [facility] Medications Administered Includes: Administered Medications from this encounter No Administered Medications Recorded Results Includes: Results discussed during this encounter No Results Recorded For Specified Dates History of Present Illness Includes: History of Present Illness from this encounter LANDY GALLAGHER is a 50 year old female. - Headache - Facial pain - Sinus pain - No neck pain - No swollen glands in the neck - No eye symptoms - The ears feel pressured on the right - On the left - Nasal discharge - Postnasal drip - Nasal passage blockage (stuffiness) - Sore throat comes and goes - No sneezing - No nasal itching - No chest pain or discomfort - No dyspnea - No cough - No wheezing - No heartburn - No nausea - No vomiting - No abdominal pain - No diarrhea - No vertigo - No skin symptoms PT to clinic for above symptoms x 3 weeks she has been doing several OTC medications with no relief Social History Description Last Updated Non-smoker 03/21/2020 Last Documented On 1 6:04PM ; [facility] Smoking Status Unknown Procedures and Surgical History Includes: Procedures from this encounter Procedures Code Diagnosis Performing Provider Service L ocation Service Date medication instruction Last Documented On 1 6:04PM ; [facility] continue current medication Last Documented On 1 6:04PM ; [facility] the options include decongestants as nee ded per product instructions Last Documented On 1 6:04PM ; [facility] the options include antihistamines as ne eded per product instructions Last Documented On 1 6:04PM ; [facility] watch for signs/symptoms of infection Last Documented On 1 6:04PM ; [facility] watch for signs/symptoms of infection, r eturn to the clinic if seen Last Documented On 1 6:04PM ; [facility] Pt to use prescription as ordered. Purpo se of and use of medication discussed.~ Last Documented On 1 6:04PM ; [facility] Pt to use OTC fever/pain product as need ed per product instruction.~ Last Documented On 1 6:04PM ; [facility] Pt to use OTC cough product as needed pe r product instruction.~ Last Documented On 1 6:04PM ; [facility] Pt to use OTC expectorant product as nee ded per product instruction.~ Last Documented On 1 6:04PM ; [facility] plan of care reviewed and agreed to by t he patient Last Documented On 1 6:04PM ; [facility] Medical History Includes: Medical History addressed during this encounter No Medical History Recorded Family History Includes: Family History addressed during this encounter No Family History Recorded Review of Systems Includes: Review of Systems from this encounter Systemic: No fever, no chills, and no night sweats. Mental Status Includes: Mental Status from this encounter No Mental Status Recorded Functional Status Includes: Functional Status from this encounter No Functional Status Recorded Physical Exam Includes: Physical Exam from this encounter Allergies Includes: Active Allergies Substance Type Reaction Onset Date Resolved Date Statu s Codeine Allergy Hives / Urticaria 03/21/2020 A ctive Last Documented On 0 2:14PM ; [facility] Encounters Encounter Provider Location Date Check-In Time Check-Out Time Diagnosis COVID SICK VISIT- ESTABLISHED PATIENT MIGUE KRAUS CHILD PROTECTION SPECIALIST-BC [facility] 02/18/20 21 5:44PM 6:06PM Sinusitis Acute Insurance Includes: Active Insurance Policies No Insurance Coverage Recorded Guarantor Relationship Effective Dates Guarantor Ph one AILEEN ILANJavi Dumont [id number] Clinical Notes Includes: Clinical Notes from this encounter No Clinical Notes Recorded
--- OUTSIDE RECORDS SUMMARY | 2025-05-15 05:16 | XMS_ITS | Encounter Summary ---
Author Organization [facility] Address 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
--- OUTSIDE RECORDS SUMMARY | 2025-05-15 05:16 | XMS_ITS | Clinical Summary ---
Author Organization [facility] Address [address] [place] [address] Phone Care Team Providers Care Wealth Management Director Name Role Phone Unavailable Unavailable Unavailable Reason for Visit and Chief Complaint The Chief Complaint is: Diverticulitis flare Plan of Treatment Discussed s/s of abdominal distress and when to go to ER. If symptoms do not improve go to ER or follow up with PCP. - Last Documented On 03/21/2020 2:31PM ; [facility] Assessments Includes: Assessments from this encounter Findings - Diverticulitis of colon without perforation or abscess [K57.32 - Diverticulitis of large intestine without perforation or abscess without bleeding] - Last Documented On 03/21/2020 2:31PM ; [facility] Medical Equipment - Implanted Devices Includes: Current Devices No Medical Equipment Recorded Medications Includes: Medications discussed during this encounter and other current Medications New / Renewed during this visit DORCAS MUNOZ on 03/21/2020 Ciprofloxacin HCl 500 MG Oral Tablet Provider: DORCAS MUNOZ 7 day supply: 14 tablet, 0 refills Diagnosis: Dvtrcli of lg int w/o perforation or abscess w/o bleeding One tablet twice a day Pharmacy: [facility] [place] [address], [id number] - Last Documented On 0 2:27PM By Dorcas MUNOZ ; [facility] metroNIDAZOLE 500 MG Oral Tablet Provider: DORCAS N GONZALES FOREIGN EXCHANGE CLERK-C 7 day supply: 14 tablet, 0 refills Diagnosis: Dvtrcli of lg int w/o perforation or abscess w/o bleeding One tablet twice a day Pharmacy: [address], [id number] - Last Documented On 0 2:28PM By Dorcas MUNOZ ; [facility] Current Medications (continue as prescribed) levoFLOXacin 500 MG Oral Tablet 02/17/2021 Provider: MIGUE KRAUS FOREIGN EXCHANGE CLERK-BC Diagnosis: Acute maxillary sinusitis, unspecified One tablet daily Last Documented On 1 6:04PM By MIGUE KRAUS [facility] ; [facility] Escitalopram Oxalate 20 MG Oral Tablet 03/21/2020 Pr ovider: Diagnosis: Last Documented On 0 2:12PM By Brenda Valencia MA ; [facility] Estradiol 1 MG Oral Tablet 03/21/2020 Provider: Diagnosis: Last Documented On 0 2:13PM By Brenda Valencia MA ; [facility] Progesterone Micronized 100 MG Oral Capsule 03/21/2020 Provider: Diagnosis: Last Documented On 0 2:13PM By Brenda Valencia MA ; [facility] buPROPion HCl ER (XL) 150 MG Oral Tablet Extended Release 24 Hour 03/21/2020 Provider: Diagnosis: Last Documented On 0 2:14PM By Brenda Valencia MA ; [facility] Medications Administered Includes: Administered Medications from this encounter No Administered Medications Recorded Vital Signs Includes: Vital Signs from this encounter Vital Name 03/21/2020 02:16P Blood Pressure Sitting L 110/70 Pulse Rate-Sitting (bpm) 78 Respiration Rate (breaths/min) 22 Temp-Oral (F) 99 Height (in) 67 Weight (lb) 198 Body Mass Index (kg/m2) 31.0 Body Surface Area (m2) 2.0 Last Documented: On 03/21/2020 2:17PM ; [facility] Results Includes: Results discussed during this encounter No Results Recorded For Specified Dates History of Present Illness Includes: History of Present Illness from this encounter LANDY GALLAGHER is a 49 year old female. - Allergy list reviewed - Medication reconciliation performed - Feeling poorly (malaise) - No fever - No chills - No headache - No ear symptoms - No nasal discharge - No postnasal drip - No nasal passage blockage (stuffiness) - No sore throat - No dyspnea - No cough - LLQ abdominal pain - Which feels dull, boring, or aching - No vomiting - No diarrhea Patient reports history of diverticulitis and will get a flare ever year or so- she reports she had a drink of a smoothie with strawberry and blackberries in it and thinks the seeds set it off. She reports LLQ discomfort started last night- no severe pain but a dull aching pain that is worse with certain movements and palpation. Social History Description Last Updated Non-smoker 03/21/2020 Last Documented On 0 2:31PM ; [facility] Smoking Status Unknown Procedures and Surgical History Includes: Procedures from this encounter Procedures Code Diagnosis Performing Provider Service L ocation Service Date review of medications documented 1160F Last Documented On 0 2:28PM ; [facility] Clinical summary provided to patient Last Documented On 0 2:28PM ; [facility] Medical History Includes: Medical History addressed during this encounter No Medical History Recorded Family History Includes: Family History addressed during this encounter No Family History Recorded Review of Systems Includes: Review of Systems from this encounter Systemic: No fever. Head: No headache. Otolaryngeal: No earache, no nasal discharge, and no sore throat. Cardiovascular: No cardiovascular symptoms. Pulmonary: No pulmonary symptoms. Gastrointestinal: Abdominal pain -LLQ x 1 day. Skin: No skin symptoms. Mental Status Includes: Mental Status from this encounter Description Oriented to time, place, and person Functional Status Includes: Functional Status from this encounter No Functional Status Recorded Physical Exam Includes: Physical Exam from this encounter Allergies Includes: Active Allergies Substance Type Reaction Onset Date Resolved Date Statu s Codeine Allergy Hives / Urticaria 03/21/2020 A ctive Last Documented On 0 2:14PM ; [facility] Encounters Encounter Provider Location Date Check-In Time Check-Out Time Diagnosis WALK-IN CLINIC SICK VISIT DORCAS MUNOZ [facility] 03/21/20 20 2:00PM 2:25PM Diverticulitis of Colon Without Perforation Or Abscess Insurance Includes: Active Insurance Policies No Insurance Coverage Recorded Guarantor Relationship Effective Dates Guarantor Ph one ILAN GALLAGHER [id number] Clinical Notes Includes: Clinical Notes from this encounter No Clinical Notes Recorded
--- OUTSIDE RECORDS SUMMARY | 2025-05-15 05:16 | XMS_ITS ---
Care Plan - [facility] Created on: May 15, 2025 ILAN GALLAGHER : 1970 Sex: Female Author Organization [facility] Address [address] [place] [address] Phone Care Team Providers Care Cotton Jammer Name Role Phone Unavailable Unavailable Unavailable
--- OUTSIDE RECORDS SUMMARY | 2025-05-15 05:16 | XMS_ITS | Clinical Summary ---
Author Organization [facility] Address [address] [place] [address] Care Team Providers Care Technical Operations Vice President Name Role Phone Dion Rangel MD Primary Care Provider [phone] Source Comments [facility],non-owned Affiliates and Associated Physician Practices is amultiple site organization consisting of ambulatory clinics and hospital sitesin [place], [place], [place] and [place]. This disclosure is being madepursuant to the Care Everywhere program and may not contain all information available regarding this patient. Last updated 18.[facility] Allergies Active Allergy Reactions Criticality Noted Date [...] 170.2 cm (5' 7) 08/23/2017 3:10 PM OPERATIONS SYSTEMS SPECIALIST Body Mass Index 31.01 08/23/2017 3:10 PM OPERATIONS SYSTEMS SPECIALIST Plan of Treatment Health Maintenance Due Date [...] 2019 ZOSTER VACCINE (1 of 2) 2019 DEPRESSION SCREENING 08/20/2024 COVID-19 VACCINE (1 - season) 2025 INFLUENZA VACCINE (#1) 2025 0, 05/20/2018, 07/20/2016, Additional history exists DTAP/TDAP/TD VACCINES [...] of Phone Billing Address Personal/Family [address] [place] [address] [employer] [facility] [phone] [place] [address] Care Teams Technical Operations Vice President Relationship Specialty Start Date End Date Dion Rangel MD [address] [address] PCP - General Internal Medicine 12/07/16
--- OUTSIDE RECORDS SUMMARY | 2025-05-15 05:16 | XMS_ITS | Encounter Summary ---
Author Organization [facility] Address 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
--- OUTSIDE RECORDS SUMMARY | 2025-05-15 05:16 | XMS_ITS | Clinical Summary ---
Author Organization [facility] Address [address] [address] Phone Care Team Providers Care Facility Examiner Name Role Phone Sarah Nobles MD Unavailable [phone] Arianne Carlisle MD Unavailable [phone] Benji Pierre MD Primary Care Provi will Allergies Active Allergy Reactions Criticality Noted Date Comments Codeine Hives,Rash,Itching Reaction: Hives, Skin Rash, , Reaction: Itching, Medications pantoprazole DR (PROTONIX) 40 mg EC tabletIndication s:Gastroesophage al reflux disease, unspecified whether esophagitis present TAKE 1 TABLET(40 MG) BY MOUTH DAILY 90 tablet 1 5 Active ketoconazole (NIZORAL) 2 % cream Apply topically daily to affected area and immediate surrounding skin until resolved (typically 1-3 weeks) 30 g 2 5 Active Active Problems Problem Noted Date Diagnosed Date Class 1 obesity with serious comorbidity and body mass index (BMI) of 32.0 to 32.9 in adult 01/03/2024 Assessment & Plan (03/10/2025 5:18 PM CDT): BMI Follow-up includes: nutrition counseling, exercise counseling, and education provided. Assessment & Plan (01/03/2024 3:00 PM CDT): [...] Continue current medications. Follows with Psych in [place]. Assessment & Plan (03/30/2022 8:02 AM CDT): [...] Continue current medications. Follows with Psych in [place]. Assessment & Plan (03/30/2022 8:02 AM CDT): Patient has a history of bipolar and depression. Not sleeping. Taking lorazepam 1 mg nightly to help her sleep. On multiple medications for the depression and bipolar. He has a psychiatrist. Acquired hypothyroidism 01/07/2020 Assessment & Plan (03/10/2025 5:18 PM CDT): Historically not on replacement therapy Assess on labs today Orders: Comprehensive metabolic panel; Future CBC with auto differential; Future Assessment & Plan (01/03/2024 3:41 PM CDT): Stable. Patient is not taking levothyroxine. TFTs today. Assessment & Plan (10/07/2020 12:01 PM TAX ASSOCIATE ATTORNEY): Feeling fatigued. Check TSH and free T4 [...] will repeat thyroid function tests. Migraine 03/14/2018 Assessment & Plan (03/10/2025 5:18 PM CDT): Severe daily headaches with sudden onset warrant imaging to rule out acute intracranial pathology. Neurology referral needed for further evaluation. - Order brain MRI pending prior authorization. - Refer to neurology for further evaluation. Orders: MRI Brain WO Contrast; Future Ambulatory referral to Neurology; Future Comprehensive metabolic panel; Future CBC with auto differential; Future Lung nodule 12/14/2017 Assessment & Plan (01/03/2024 3:41 PM CDT): Refer for follow-up CT. Patient states that she followed with Pulmonary in [place] several years ago and they told her [...] 03/09/2017 Overview (01/03/2024): Follows with Psych in [place]. Assessment & Plan (01/03/2024 3:14 PM CDT): Stable. Continue current medications. Follows with Psych in [place]. Assessment & Plan (03/30/2022 8:01 AM CDT): [...] daily. Assessment & Plan (08/16/2017 2:26 PM TAX ASSOCIATE ATTORNEY): Improved with addition of Seroquel. Explained to [...] Verbalized understanding. Hypercholesterolemia 06/09/2014 Assessment & Plan (03/10/2025 5:18 PM CDT): Labs today Orders: Hemoglobin A1c; Future Lipid panel; Future Comprehensive metabolic panel; Future CBC with auto differential; Future Assessment & Plan (01/03/2024 3:41 PM CDT): Stable. Healthy lifestyle. Resolved Problems Problem Noted Date Diagnosed Date Resolved Date Screening mammogram, encounter for 01/03/2024 01/03/2024 Open dislocation of finger of right hand 12/07/2021 01/03/2024 ECHO virus infection 04/24/2021 Overview (04/24/2021): History of [facility] cardiology consultation with [facility] advice that infectious illness with compromise in immunity Preop exam for internal medicine 10/07/2020 01/03/2024 Assessment & Plan (10/07/2020 12:00 PM TAX ASSOCIATE ATTORNEY): Scheduled for cataract extraction next week. She is an acceptable candidate for low risk cataract extraction. No further cardiac testing is required. Preop H&P forms completed. Abdominal distension 10/07/2020 024 Assessment & Plan (10/07/2020 12:12 PM TAX ASSOCIATE ATTORNEY): Intermittent abdominal distension, without pain or cramping. [...] provided. Assessment & Plan (10/07/2020 11:13 AM TAX ASSOCIATE ATTORNEY): BMI Follow-up includes: nutrition counseling, exercise counseling [...] 09/19/201804/2020 Assessment & Plan (09/19/2018 11:10 AM TAX ASSOCIATE ATTORNEY): Patient here to today for physical exam. The patient was evaluated and all health maintenance objectives were discussed and addressed. Bipolar affective disorder in remission 12/13/2017 02/26/2020 Uterine fibroid 12/13/2017 02/26/2020 Generalized abdominal pain 12/12/2017 0 02/26/2020 Overview (12/14/2017): Added automatically from request for surgery [id number] Snoring 08/16/2017 02/26/2020 Assessment & Plan (08/16/2017 2:26 PM TAX ASSOCIATE ATTORNEY): Refer to Dr. Holder for evaluation. Chronic [...] 2:26 PM CDT): Will assess response to [place] Thyroid. Subclinical hypothyroidism 03/27/2017 0 01/07/2020 Assessment [...] but cost is an issue. Trial of [place] thyroid 30 grams daily. Will repeat TSH in 2 and 4 months. TSH will 0.45-2.5. Follow-up in 4 months. BMI 30.0-30.9,adult 03/09/2017 02/26/20 Assessment & Plan (08/28/2018 4:26 PM TAX ASSOCIATE ATTORNEY): BMI Follow-up includes: nutrition counseling, exercise counseling [...] 01/03/2024 Arthralgia of multiple joints 05/06/2012 01/03/2024 Allergic rhinitis 05/04/2012 03/10/2025 ALEJANDRO (acute kidney injury) 05/04/2012 Dehydration 05/04/2012 [...] Encounters Date Type Department Care Team Description 03/20/2025 Telephone [facility] [address] [place] [address] [place] [phone] Chencho Gates MA 03/19/2025 Telephone [facility] [address] [place] [address] [address] [place] [address] Benji Pierre MD Symptom Based Call 03/17/2025 Telephone [facility] [address] [place] [address] [address] [place] [address] Benji Pierre MD No improvement to rash 03/11/2025 Results Follow-Up [facility] [address] [place] [address] [address] [place] [address] Chandni Renteria NP Hepatitis B surface antibody (immune status) Blood, Hepatitis B core antibody, total Blood, Hepatitis B Surface Antigen Blood, Additional followed-up results: 10 03/10/2025 6:36 PM CDT - 03/10/2025 11:59 PM CDT Hospital Encounter [facility] [address] [place] [address] Discharge Disposition: Discharge to home or self care 03/10/2025 3:30 PM CDT Office Visit [facility] [address] [place] [address] [place] [phone] Chandni Renteria NP Palpitation (Primary Dx); SOB (shortness of breath) on exertion; Migraine without status migrainosus, not intractable, unspecified migraine type; Chronic pain of both knees; Acquired hypothyroidism; Hypercholesterolem ia; Vitamin D deficiency; Need for hepatitis B screening test; Sudden onset of severe headache; Gastroesophageal reflux disease, unspecified whether esophagitis present; BRENNON positive; Fatigue, unspecified type; Class 1 obesity with serious comorbidity and body mass index (BMI) of 32.0 to 32.9 in adult, unspecified obesity type; Leg swelling; Muscle spasm; Rash 03/09/2025 Nurse Triage [facility] [address] [place] [address] [place] [phone] Benji Pierre MD from Last 3 Months [...] Dive rticular disease Subclinical hypothyroidism Bipolar disorder Anxiety 2018 Cataract 09/03/20 Depression Migraines Family History Medical [...] P. Father Bill Sr. Maternal Grandmother Mother Mariana Other 1 Other 2 Other 3 Other [...] points, staff should administer the PHQ-9) 0 03/10/2025 Personal Safety Answer Date Recorded Have you ever been in or are you currently in a harmful physical or emotional relationship or is someone making you feel afraid or unsafe? Denies 05/25/2023 Comments No Sex and Gender Information Value Date Recorded Sex Assigned at Not on file Legal Sex Female 1:10 AM TAX ASSOCIATE ATTORNEY Gender Identity Not on file Sexual Orientation Not on file Obstetrics History Last Filed Vital Signs Vital Sign Reading Time Taken Comments Blood Pressure 102/70 03/10/2025 3:40 PM CDT Pulse 71 03/10/2025 3:40 PM CDT Temperature 36.7 C (98.1 F) 01/03/2024 2:52 PM CDT Respiratory Rate 20 03/10/2025 3:40 PM CDT Oxygen Saturation 96% 03/10/2025 3:40 PM CDT Inhaled Oxygen Concentration - - Weight 92.1 kg (203 lb) 03/10/2025 3:40 PM CDT Height 167.6 cm (5' 6) 03/10/2025 3:40 PM CDT Body Mass Index 32.77 03/10/2025 3:40 PM CDT Plan of Treatment Health Maintenance Due Date Last Done Comments Cervical Cancer Screening 1970 Zoster Vaccine (1 of 2) 2019 Colon Cancer Screening-Colonoscopy 09/22/2021 09/22/2016 Breast Cancer Screening-Mammogram 01/19/2024 01/18/2023, 05/25/2022, 03/01/2021, Additional history exists Regular Well Visit/Exam 18-64 01/02/2025 01/03/2024, 02/26/2020, 08/28/2018 Influenza Vaccine (#1) 2025 , 05/20/2023, 09/04/2019, Additional history exists Depression Screening 03/10/2026 03/10/2025, 01/03/2024, 10/07/2020, Additional history exists DTaP/Tdap/Td Vaccine (2 - Td or Tdap) 12/02/2031 12/01/2021 Pneumococcal vaccine <65 Aged Out 12/29/2011, 12/18 No longer eligible based on patient's age to complete this topic Hepatitis C Screening Completed 03/26/2014 Colon Cancer Screening-CT Colonography Discontinued 09/22/2016 Colon Cancer Screening-DNA Stool Discontinued 09/22/2016 Colon Cancer Screening-FIT Discontinued 09/22/2016 Colon Cancer Screening-Sigmoidoscopy Discontinued 09/22/2016 Hepatitis B Screening Completed 03/10/2025 Procedures Procedure Name Priority Date/Time Associated Diagnosis Comments ECG 12-LEAD Routine 03/10/2025 5:18 PM CDT Palpitation EGFR Routine 03/10/2025 4:50 PM CDT Palpitation SOB (shortness of breath) on exertion Acquired hypothyroidism Hypercholesterolem ia Sudden onset of severe headache Fatigue, unspecified type COMPREHENSIVE METABOLIC PANEL Routine 03/10/2025 4:50 PM CDT Palpitation SOB (shortness of breath) on exertion Acquired hypothyroidism Hypercholesterolem ia Sudden onset of severe headache Fatigue, unspecified type LIPID PANEL Routine 03/10/2025 4:50 PM CDT Hypercholesterolem ia THYROID FUNCTION CASCADE Routine 03/10/2025 4:50 PM CDT Palpitation SOB (shortness of breath) on exertion Acquired hypothyroidism Hypercholesterolem ia Sudden onset of severe headache Fatigue, unspecified type VITAMIN D 25 HYDROXY Routine 03/10/2025 4:50 PM CDT Vitamin D deficiency DIFFERENTIAL AUTO Routine 03/10/2025 4:5 0 PM CDT Palpitation SOB (shortness of breath) on exertion Acquired hypothyroidism Hypercholesterolem ia Sudden onset of severe headache Fatigue, unspecified type CBC WITH AUTO DIFFERENTIAL Routine 03/10/2025 4:50 PM CDT Palpitation SOB (shortness of breath) on exertion Acquired hypothyroidism Hypercholesterolem ia Sudden onset of severe headache Fatigue, unspecified type ALBUMIN CREATININE RATIO, URINE Routine 03/10/2025 4:50 PM CDT Palpitation SOB (shortness of breath) on exertion Need for hepatitis B screening test Fatigue, unspecified type HEMOGLOBIN A1C Routine 03/10/2025 4:50 PM CDT Palpitation SOB (shortness of breath) on exertion Acquired hypothyroidism Hypercholesterolem ia Fatigue, unspecified type URINALYSIS AND REFLEX TO MICROSCOPIC AND CULTURE Routine 03/10/2025 4:50 PM CDT Fatigue, unspecified type HEPATITIS B SURFACE ANTIGEN Routine 03/10/2025 4:50 PM CDT Need for hepatitis B screening test HEPATITIS B CORE ANTIBODY, TOTAL Routine 03/10/2025 4:50 PM CDT Need for hepatitis B screening test HEPATITIS B SURFACE ANTIBODY (IMMUNE STATUS) Routine 03/10/2025 4:50 PM CDT Need for hepatitis B screening test SCREENING MAMMOGRAM BILATERAL W ULISES Schedule Routine, Read Routine (OP Routine) 01/18/2023 COLONOSCOPY REPORT 09/22/2016 SERUM HEPATITIS PANEL Routine 03/26/2014 5:31 AM CDT from Last 3 Months or Most Recently Relevant to Health Maintenance Results * ECG 12-LEAD (03/10/2025 5:18 PM CDT) Narrative Benji Pierre MD - 03/10/2025 5:18 PM CDT Benji Pierre MD 03/16/2025 5:35 PM ECG 12 lead Date/Time: 03/10/2025 5:18 PM Performed by: Chandni Renteria NP Authorized by: Chandni Renteria NP Rhythm: sinus bradycardia Rate: bradycardic us Chandni Renteria NP ECG ORDERABLES Final Re sult * eGFR (03/10/2025 4:50 PM CDT) eGFR 61 >=60 mL/min/1. 73 m2 Comment: Interpretive Data Reference Interval Normal >/= 90 mL/min/1.73m2 Mildly decreased* 60 - 89 mL/min/1.73m2 Mildly to moderately decreased 45 - 59 mL/min/1.73m2 Moderately to severely decreased 30 - 44 mL/min/1.73m2 Severely decreased 15 - 29 mL/min/1.73m2 Kidney Failure < 15 mL/min/1.73m2 *Relative to young adult level Estimated glomerular filtration rate is determined by the 2020 CKD-EPI equation recommended by the National Kidney Foundation (A Unifying Approach to GFR Estimation: Recommendations of the NKF-ASK Task Force on Reassessing the Inclusion of Race in Diagnosing Kidney Disease, JASN 2020). The CKD-EPI equation should not be used for patients with unstable renal function and has not been validated in children and those over 70. Current interpretive data was last reviewed 2021. Blood 03/10/2025 4:50 PM CDT 03/10/2025 5:20 PM CDT Chandni Renteria NP LAB BLOOD ORDERABLES Fin al Result Performing Organization Address City/[facility]/ZIP Co de Phone Number [facility] [address] [place] [address] * Thyroid Function [place] (03/10/2025 4:50 PM CDT) TSH 3.44 0.30 - 4.20 mcIUnit/mL Blood 03/10/2025 4:50 PM CDT 03/10/2025 5:20 PM CDT Chandni Renteria DESKTOP SUPPORT CONSULTANT LAB BLOOD ORDERABLES Fin al Result Performing Organization Address [facility]/ZIP Co de Phone Number [facility] [address] [place] [address] * Vitamin D 25 hydroxy (03/10/2025 4:50 PM CDT) Vitamin D 25-OH 34 30 - 80 ng/mL Blood 03/10/2025 4:50 PM CDT 03/10/2025 5:20 PM CDT us Chandni Renteria NP LAB BLOOD ORDERABLES Fin al Result [facility] [address] [facility]. Department [place] [address] * (ABNORMAL) Lipid panel (03/10/2025 4:50 PM CDT) Cholesterol 228(H) 30 - 199 mg/dL Comment: Interpretive Data Ages < or = 19 years Acceptable: <170 mg/dL Borderline high: 170-199 mg/dL High: >or= 200 mg/dL Ages > or = 20 years Desirable: <200 mg/dL Borderline high: 200-239 mg/dL High: >or= 240 mg/dL Literature References: 1. Expert Panel on Integrated Guidelines for Cardiovascular Health and Risk Reduction in Children and Adolescents. Pediatrics 2011;128:S213 2. NCEP Expert Panel. Circulation 2004;110:227 Current Interpretive Data was last revised on 2018. Triglycerides 222(H) <=149 mg/dL [facility] Comment: Interpretive Data Ages < or = 9 years Acceptable: <75 mg/dL Borderline high: 75-99 mg/dL High: >or= 100 mg/dL Ages 10 to 20 years Acceptable: <90 mg/dL Borderline high: 90-129 mg/dL High: >or= 130 mg/dL Ages > or = 20 years Desirable: <150 mg/dL Borderline high: 150-199 mg/dL High: 200-499 mg/dL Very high: >or= 499 mg/dL Literature References: 1. Expert Panel on Integrated Guidelines for Cardiovascular Health and Risk Reduction in Children and Adolescents. Pediatrics 2011;128:S213 2. NCEP Expert Panel. Circulation 2004;110:227 Current Interpretive Data was last revised on 2018. HDL 38(L) >=40 mg/dL [facility] Comment: Interpretive Data Ages < or = 19 years Acceptable: >45 mg/dL Borderline low: 40-45 mg/dL Low: <40 mg/dL Ages > or = 20 years Desirable: >or= 60 mg/dL Low: <40 mg/dL Literature References: 1. Expert Panel on Integrated Guidelines for Cardiovascular Health and Risk Reduction in Children and Adolescents. Pediatrics 2011;128:S213 2. NCEP Expert Panel. Circulation 2004;110:227 Current Interpretive Data was last revised on 2018. LDL, calculated 149(H) <=129 mg/dL [facility] Comment: Interpretive Data Ages < or = 19 years Acceptable: <110 mg/dL Borderline high: 110-129 mg/dL High: >or= 130 mg/dL Ages > or = 20 years Optimal: <100 mg/dL Near optimal: 100-129 mg/dL Borderline high: 130-159 mg/dL High: >160 mg/dL Calculated using the Azam LDL-C estimating equation. This equation was implemented on 2024. Prior to this date LDL-C was estimated using the Friedewald equation. Literature References: 1. Expert Panel on Integrated Guidelines for Cardiovascular Health and Risk Reduction in Children and Adolescents. Pediatrics 2011;128:S213 2. NCEP Expert Panel. Circulation 2004;110:227 3. Azam English et al. REBECCA Cardiol. 2020 December 18;5(5):540-548. doi: 10.1001/jamacardio.2020.0013 Current Interpretive Data was last revised on 2024. Non-HDL Cholesterol 190 mg/dL [facility] Comment: Interpretive Data Ages < or = 19 years Acceptable: <120 mg/dL Borderline high: 120-144 mg/dL High: >145 mg/dL Ages > or = 20 years When triglycerides are >200 mg/dL, Non-HDL cholesterol is a secondary target of therapy with treatment goals that are 30 mg/dL greater than the LDL cholesterol target. Literature References: 1. Expert Panel on Integrated Guidelines for Cardiovascular Health and Risk Reduction in Children and Adolescents. Pediatrics 2011;128:S213 2. NCEP Expert Panel. Circulation 2004;110:227 Current Interpretive Data was last revised on 2018. Chol/HDL ratio 6 [facility] Blood 03/10/2025 4:50 PM CDT 03/10/2025 5:20 PM CDT Narrative [facility] - 03/10/2025 6:19 PM CDT Has the patient been fasting for 8 hours or more?->Yes Chandni Renteria NP LAB BLOOD ORDERABLES Fin al Result [facility] [address] [facility]. Department [place] [address] * Comprehensive metabolic panel (03/10/2025 4:50 PM CDT) Sodium 141 135 - 145 mmol/L Potassium, pl 4.6 3.3 - 4.9 mmol/L [facility] Chloride 103 97 - 110 mmol/L [facility] CO2 29 22 - 32 mmol/L [facility] Anion gap 9 2 - 15 mmol/L [facility] BUN 14 6 - 25 mg/dL [facility] Creatinine 1.08 0.60 - 1.10 mg/dL [facility] Glucose 109 70 - 199 mg/dL [facility] Comment: Interpretive Data Fasting glucose >/= 126 mg/dl is diagnostic for diabetes. Fasting is defined as no caloric intake for at least 8 hours. Fasting glucose between 100 mg/dl to 125 mg/dl is diagnostic of prediabetes. In a patient with classic symptoms of hyperglycemia or hyperglycemic crisis, a random glucose >/= 200 mg/dl is diagnostic for diabetes. In the absence of unequivocal hyperglycemia, results should be confirmed by repeat testing. The classification and Diagnosis of Diabetes Diabetes Care 2021; 46: S19-S40. Current interpretive data was last revised 2022. Calcium 9.1 8.5 - 10.3 mg/dL [facility] Bilirubin, total 0.3 0.1 - 1.2 mg/dL [facility] Protein, pl 7.0 6.5 - 8.5 g/dL [facility] Albumin 4.1 3.5 - 5.0 g/dL [facility] Alk phos 118 40 - 130 Units/L [facility] ALT 19 7 - 45 Units/L [facility] AST 19 10 - 45 Units/L [facility] Blood 03/10/2025 4:50 PM CDT 03/10/2025 5:20 PM CDT us Chandni Renteria NP LAB BLOOD ORDERABLES Fin al Result [facility] [address] Department [place] [address] * Differential, auto (03/10/2025 4:50 PM CDT) Neutrophil abs 5.51 1.50 - 6.50 K/cumm Imm gran abs 0.05 0.00 - 0.10 K/cumm [facility] Lymphocyte abs 1.48 0.80 - 3.30 K/cumm [facility] Monocyte abs 0.59 0.20 - 0.80 K/cumm [facility] Eosinophil abs 0.14 0.00 - 0.50 K/cumm [facility] Basophil abs 0.05 0.00 - 0.10 K/cumm [facility] Neutrophil pct 70.6 % [facility] Comment: Interpretive Data Percent cell count reference ranges are not reported, since discordance with absolute values may lead to misinterpretation of CBC data. Current Interpretive Data was last revised on 2017. Imm gran pct 0.6 % [facility] Comment: Interpretive Data Percent cell count reference ranges are not reported, since discordance with absolute values may lead to misinterpretation of CBC data. Current Interpretive Data was last revised on 2017. Lymphocyte pct 18.9 % [facility] Comment: Interpretive Data Percent cell count reference ranges are not reported, since discordance with absolute values may lead to misinterpretation of CBC data. Current Interpretive Data was last revised on 2017. Monocyte pct 7.5 % [facility] Comment: Interpretive Data Percent cell count reference ranges are not reported, since discordance with absolute values may lead to misinterpretation of CBC data. Current Interpretive Data was last revised on 2017. Eosinophil pct 1.8 % [facility] Comment: Interpretive Data Percent cell count reference ranges are not reported, since discordance with absolute values may lead to misinterpretation of CBC data. Current Interpretive Data was last revised on 2017. Basophil pct 0.6 % [facility] Comment: Interpretive Data Percent cell count reference ranges are not reported, since discordance with absolute values may lead to misinterpretation of CBC data. Current Interpretive Data was last revised on 2017. Blood 03/10/2025 4:50 PM CDT 03/10/2025 5:21 PM CDT Chandni Renteria NP LAB BLOOD ORDERABLES Fin al Result [facility] [address] [facility] [place] [place] [address] * (ABNORMAL) Urinalysis reflex to microscopic and culture Urine (03/10/2025 4:50 PM CDT) Color, ur Yellow Yellow Clarity, ur Clear Clear [facility] Specific gravity, ur >1.030(H) 1.003 - 1.030 [facility] pH, urine 6.0 [facility] Comment: Interpretive Data U rine pH is affected by diet, medications, systemic acid-base disturbances, and renal tubular function. pH may affect urinary stone formation. For example, urine pH below 6.0 may help reduce the tendency for calcium phosphate stones and pH greater than 6.0 may reduce the tendency for uric acid stone formation. Source: [facility] [employer] Current Interpretive Data was last revised on 2017 Protein, ur ql Trace Negative [facility] Glucose, ur ql Negative Negative [facility] Ketones, ur Negative Negative [facility] Bilirubin, ur Negative Negative [facility] Blood, ur Negative Negative [facility] Urobilinogen, ur <2.0 <2.0 mg/dL [facility] Nitrite, ur Negative Negative [facility] Leukocyte esterase, ur Negative Negative [facility] UA reflex comment Reflex conditions for microscopic UA and culture not met. [facility] Urine 03/10/2025 4:50 PM CDT 03/10/2025 5:19 PM CDT Chandni Renteria NP LAB MICROBIOLOGY - GENER AL ORDERABLES Final Result Performing Organization Address [facility]/ZIP Co de Phone Number STEVO RUSSELL [address] [facility] [place] [address] * CBC with auto differential (03/10/2025 4:50 PM CDT) Pathologist [facility] WBC 7.82 3.80 - 9.90 K/cumm Hgb 13.3 11.9 - 15.5 g/dL [facility] Hct 39.0 35.6 - 45.5 % [facility] Plt 325 150 - 400 K/cumm [facility] MPV 9.1 9.1 - 12.3 fL [facility] W RBC 4.37 3.90 - 5.20 M/cumm [facility] MCV 89.2 81.3 - 96.4 fL [facility] MCH 30.4 27.1 - 33.3 pg [facility] W MCHC 34.1 32.3 - 35.7 g/dL [facility] RDW CV 12.2 11.1 - 14.9 % [facility] RDW SD 39.4 35.7 - 48.1 fL [facility] NRBC abs 0.00 0.00 - 0.01 K/cumm [facility] Blood 03/10/2025 4:50 PM CDT 03/10/2025 5:21 PM CDT Chandni Renteria DESKTOP SUPPORT CONSULTANT LAB BLOOD ORDERABLES Fin al Result Performing Organization Address City/[facility]/ZIP Co de Phone Number STEVO RUSSELL [address] [address] [place] [employer] [facility] [place] [address] * Albumin Creatinine Ratio, Urine (03/10/2025 4:50 PM CDT) Pathologist [facility] [place] Albumin Ur <12.0 mg/L Comment: Interpretive Data No reference range established. Current interpretive data was last revised 2018. Testing performed by: [facility], [address] [place] [address]., [id number] Creatinine Ur 278.5 mg/dL STEVO RUSSELL Comment: Interpretive Data No reference range established. Current interpretive data was last revised 2018. Testing performed by: [facility], [address] [place] [address]., [id number] Albumin Creatinine Ratio, Ur <4 1 - 29 mg/g STEVO RUSSELL Comment:Testing performed by : [facility], [address] [place] [address]., [address] Urine 03/10/2025 4:50 PM CDT 03/10/2025 8:46 PM CDT Chandni Renteria NP LAB URINE ORDERABLES Fin al Result Performing Organization Address [facility] Co de Phone Number [facility] [address] [employer] [place], [place] [id number] * Hepatitis B core antibody, total Blood (03/10/2025 4:50 PM CDT) Hep B core IgG/IgM Nonreactive Nonreactive Comment:Testing performed by : [facility], [address] [place]., [address] Blood 03/10/2025 4:50 PM CDT 03/10/2025 6:52 PM CDT Chandni Renteria NP LAB MICROBIOLOGY - GENER AL ORDERABLES Final Result Performing Organization Address City/[facility] Co de Phone Number [facility] [address] [place] [address] * Hepatitis B surface antibody (immune status) Blood (03/10/2025 4:50 PM CDT) HBsAb (immune status) Nonreactive Comment: This result is consistent with a lack of immunity to Hepatitis B Virus when used in the setting of routine screening. Current interpretative data was last revised on 22 Testing performed by: [facility], [address] [place]., [address] Blood 03/10/2025 4:50 PM CDT 03/10/2025 6:52 PM CDT Chandni Renteria NP LAB MICROBIOLOGY - GENER AL ORDERABLES Final Result Performing Organization Address City/[facility] Co de Phone Number [facility] [address] [facility] [place] [address] * Hepatitis B Surface Antigen Blood (03/10/2025 4:50 PM CDT) Pathologist [facility] [place] HepBsAg Nonreactive Nonreactive Comment:Testing performed by : [facility], [facility] [place]., [address] Blood 03/10/2025 4:50 PM CDT 03/10/2025 8:47 PM CDT Chandni Renteria NP LAB MICROBIOLOGY - GENER AL ORDERABLES Final Result Performing Organization Address [facility] de Phone Number [facility] [address] [facility] [place] [address] * (ABNORMAL) Hemoglobin A1c (03/10/2025 4:50 PM CDT) Pathologist [facility] [place] Hgb A1C 5.8(H) 4.0 - 5.6 % Estimated Average Glucose 120 mg/dL STEVO ADAMSVA [facility] Comment: The ADA recommends reporting an estimated Average Glucose (eAG) with all Hemoglobin A1c results using the equation derived from a study of 507 normal and diabetic adults. Minority populations were underrepresented and children were not included. (Diabetes Care 31:6243-2457, 2008). The eAG is not equivalent to a fasting glucose. Blood 03/10/2025 4:50 PM CDT 03/10/2025 5:21 PM CDT Chandni Renteria NP LAB BLOOD ORDERABLES Fin al Result Performing Organization Address City/[facility]/ZIP Co de Phone Number STEVO [facility] [address] [facility]. Department [place] [address] * Screening Mammogram Bilateral W Ulises (01/18/2023) [...] 03/30/2014 3:00 PM CDT Test performed at [facility] [place] [address] [place] [address] Director: ARIANNE HOLT DO,MPH Historical Provider LAB BLOOD ORDERABLES Lalitha l Result HISTORICAL RESULTS from Last 3 Months or Most Recently Relevant to Health Maintenance Insurance [facility] [place] [address] [employer] WORK[employer] COMPENSATION GENERIC WORKERS COMPENSATION GENERIC Advance Directives For more information, please contact: [phone] * Full Code (Latest Code Status on File) Date Activated Date Inactivated Comments 12/13/2017 2:11 AM 12/14/2017 11:20 PM Care Teams Facility Examiner Relationship Specialty [place] [address] [place] [address] PCP - General Internal Medicine 01/07/20 Sarah Nobles MD Consulting Physician Gastroenterology 12/14/17 [place] [id number] [place] [address] Consulting Physician Pulmonary Disease 12/14/17
--- OUTSIDE RECORDS SUMMARY | 2025-05-15 05:16 | XMS_ITS | Encounter Summary ---
Author Organization [facility] Address 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
--- OUTSIDE RECORDS SUMMARY | 2025-05-15 05:16 | XMS_ITS | Encounter Summary ---
Author Organization [employer] [facility] Address [address] [place] [address] Care Team Providers Care Central Lab Technician Name Role Phone Erica Portillo MD Primary Care Provider + Encounter Details Date Type Department Care Team (Latest Contact Info) Description 07/04/2007 Inpatient Historical [facility] [place], [place] [address] [place] [address] Madina Parrish MD NO ADDRESS ON FILE Hemorrhage from Placenta Previa, Antepartum (Primary Dx) Social History Tobacco Use Types Packs/Day Years Used Date Smoking Tobacco: Never Assessed Comments Unknown Sex and Gender Information Value Date Recorded Sex Assigned at Not on file Legal 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:59 AM STONE GLUER Gender Identity Not on file Sexual Orientation Not on file documented as of this encounter Plan of Treatment Not on file documented as of this encounter Procedures Procedure Name Priority Date/Time Associated Diagnosis Comments CBC WITH DIFFERENTIAL Routine 07/04/2007 10:45 PM STONE GLUER CBC WITH DIFFERENTIAL Routine 07/04/2007 10:45 PM STONE GLUER documented in this encounter Results * (ABNORMAL) CBC WITH DIFFERENTIAL (07/04/2007 10:45 PM STONE GLUER) NEUTROPHILS 70 45 - 70 % INTERFAC [...] K/uL INTERFACE SYSTEM 07/04/2007 10:4 5 PM STONE GLUER us Madina Parrish MD HEMATOLOGY ORDERABLES Ed ited Performing Organization Address City/State/[facility] Co de Phone Number INTERFACE SYSTEM Refer to clinic/hospital department * (ABNORMAL) CBC WITH DIFFERENTIAL (07/04/2007 10:45 PM STONE GLUER) WBC 11.0(H) 4.0 - 9.8 K/uL INTERFACE [...] fL INTERFACE SYSTEM 07/04/2007 10:4 5 PM STONE GLUER Madina Parrish MD HEMATOLOGY ORDERABLES Ed ited Performing Organization Address City/State/[facility] Co de Phone Number INTERFACE SYSTEM Refer to clinic/hospital department documented in this encounter Visit Diagnoses Diagnosis Hemorrhage from placenta previa, antepartum- Primary documented in this encounter Care Teams Central Lab Technician Relationship Specialty Start Date End Date Erica Portillo MD PCP - General 08/23/15 05/01/19 documented as of this encounter
--- OUTSIDE RECORDS SUMMARY | 2025-05-15 05:16 | XMS_ITS | Clinical Summary ---
Author Organization [facility] Address [address] [place] [address] Phone Care Team Providers Care Nail Sticker Name Role Phone Dion Rangel MD Primary Care Provider [phone] Allergies Active Allergy Reactions Criticality Noted Date [...] PF 07/22/2024 ,06/30/2014 Influenza,Split Virus,Trivalent,Injectable,PF 06/14/2012 Novel [id number], Injectable 06/20/2009 Pneumococcal Vaccine - 13 Valent [...] on file Legal Sex Female 2:52 AM NEWS CLERK Gender Identity Not on file Sexual Orientation Not on file Last Filed Vital Signs Vital Sign Reading Time Taken Comments Blood Pressure 94/72 2024 1:38 PM NEWS CLERK Pulse 85 2024 1:38 PM NEWS CLERK Temperature 37.3 C (99.1 F) 2024 1:38 PM NEWS CLERK Respiratory Rate 16 2024 1:38 PM NEWS CLERK Oxygen Saturation 97% 2024 1:38 PM NEWS CLERK Inhaled Oxygen Concentration - - Weight 87.7 kg (193 lb 6 oz) 2024 1:38 PM NEWS CLERK Height 170.2 cm (5' 7) 06/20/2018 2:57 PM CDT Body Mass Index 30.29 06/20/2018 2:57 PM CDT Plan of Treatment Health Maintenance Due Date Last Done Comments Hepatitis C Virus (HCV) Screening 1969 Mammogram 1969 Hepatitis B Immunization (1 of 3 - 19+ 3-dose series) 1988 Pap Smear 1990 Cervical Cancer Screening (CCS) 1999 HPV/Cotest 1999 Cologuard 2014 Colonoscopy 2014 Colorectal Cancer Screening 2014 Immunochemical Fecal Occult Blood 2014 Pneumococcal Immunization (50+ years) (3 of 3 - PCV20 or PCV21) 2019 12/29/2011, 12/29/2011 Zoster Immunization (1 of 2) 2019 Influenza Immunization (#1) 2025 1210/2023, 05/20/2023, 09/04/2019, Additional history exists SARS-COV-2 Immunization ( - season) 2025 Td Immunization Every 10 Years (Adults With 1 Tdap) 12/02/2031 12/01/2021 Respiratory Syncytial Virus (RSV) Immunization (Adult) (1 - 1-dose 75+ series) 2044 Pneumococcal Immunization Combined Discontinued 12/29/2011, 12/29/2011 DTaP/Tdap/Td Immunization Discontinued 12/01/2021 TdaP Immunization Discontinued 12/01/2021 Human Papillomavirus (HPV) Immunization Aged Out No longer eligible based on patient's age to complete this topic Meningococcal Immunization (ACWY) Aged Out No longer eligible based on patient's age to complete this topic Rotavirus Immunization Aged Out No lo nger eligible based on patient's age to complete this topic Insurance [facility] Care Teams Nail Sticker Relationship Specialty Start Date End Date Dion Rangel MD [address] [facility] [address] [place] [address] PCP - General Internal Medicine 06/20/18
--- OUTSIDE RECORDS SUMMARY | 2025-05-15 05:16 | XMS_ITS | Encounter Summary ---
Author Organization [facility] Address 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
--- OUTSIDE RECORDS SUMMARY | 2025-05-15 05:16 | XMS_ITS | Clinical Summary ---
Author Organization [facility] Address [address] [facility] [place] [address] Phone Care Team Providers Care Operations Research Manager Name Role Phone Unavailable Primary Care Provider [...] tablet Take 1 Tab by mouth daily ring striker. 30 Tab 0 2 Active venlafaxine SR 24 hour (EFFEXOR XR) 150 mg capsule 3 Active Active Problems Patient Care Coordination No te Formatting of this note migh t be different from the original. Religious Studies Professor: Dr. Alec Rome ( [facility] ) Problem Noted Date Diagnosed Date History [...] ECHO virus infection Overview (08/11/2013): History of [facility] cardiology consultation with paper stripper advice that infectious illness with compromise in [...] on file Legal 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:59 AM TEAM ASSEMBLER Gender Identity Not on file Sexual Orientation Not on file Occupation Industry Job Start Date Job End Date Not on file Not on file Not on file Not on file Last Filed Vital Signs Vital Sign Reading Time Taken Comments Blood Pressure 107/73 08/11/2013 3:24 PM TEAM ASSEMBLER Pulse 71 08/11/2013 3:24 PM TEAM ASSEMBLER Temperature 36.3 C (97.3 F) 05/09/2012 2:49 PM CDT Respiratory Rate 16 05/09/2012 2:49 PM CDT Oxygen Saturation 97% 05/09/2012 2:49 PM CDT Inhaled Oxygen Concentration - - Weight 76.8 kg (169 lb 6.4 oz) 08/11/2013 3:24 P M TEAM ASSEMBLER Height 170.2 cm (5' 7) 08/11/2013 3:24 PM TEAM ASSEMBLER Body Mass Index 26.53 08/11/2013 3:24 PM TEAM ASSEMBLER Plan of Treatment Health Maintenance Due Date [...] Colorectal Cancer Screening 09/11/2019 INFLUENZA VACCINE (#1) 2025 06/20/2009 Procedures Procedure Name Priority Date/Time Associated Diagnosis Comments CERV/VAG CYTOPATH, THIN PREP OYSTER BUYER AND HPV Routine 08/11/2013 3:43 PM TEAM ASSEMBLER Well woman exam with routine gynecological exam Cervical high risk human papillomavirus (HPV) DNA test positive from Last 3 Months or Most Recently Relevant to Health Maintenance Results * CERV/VAG CYTOPATH, THIN PREP OYSTER BUYER AND HPV (08/11/2013 3:43 PM TEAM ASSEMBLER) PAP INTERP Negative for intraepithelial lesion or malignancy. L-3 [facility] Comment: Performed by [facility], [address] [place] [address] CYTOLOGY INFECTION Fungal organisms morphologically consistent with Gay spp. [facility] Cell Lead Pap Comment This Pap test has been evaluated with computer assisted technology. [facility] ADEQUACY: Satisfactory for evaluation. Endocervical/reed sformation zone component present. Age and/or menstrual status not provided [facility] CLINICAL INFORMATION SCREENING [facility] SOURCE Endocervix [facility] PREV PAP: Information not provided [facility] SQL SERVER BI DEVELOPER: LYN JAMES(ASCP) [facility] LAST MENSTRUAL PERIOD Information not provided [facility] PREV BX: Information not provided [facility] HPV HIGH RISK DNA DETECTION NOT DETECTED NOT DETECTED [facility] Comment: Tested for high risk types 16,18,31,33,35,39,45,51,52, 56,58,59,68. The analytical performance characteristics of this assay, when used to test SurePath or vaginal specimens, have been determined by [facility]. Methodology: Hybrid Capture with Signal Amplification. Lab test performed by: [facility] [address] [place] [address] JOSE YODER MD Endocervical 08/11/2013 3:43 PM TEAM ASSEMBLER 08/12/2013 3:46 PM TEAM ASSEMBLER Comment:ENDOCERVICAL Narrative [facility] - 08/21/2013 6:21 PM TEAM ASSEMBLER ECC us Madina Parrish MD PATHOLOGY/CYTOLOGY ORDER PETTY Edited Result - Final [facility] CLIA# [id number] [address] [place] [address] from Last 3 Months or Most Recently Relevant to Health Maintenance Advance Directives For more information, please contact: [phone] * Full Code (Latest Code Status on [...]
--- OUTSIDE RECORDS SUMMARY | 2025-05-15 05:16 | XMS_ITS | Encounter Summary ---
Author Organization [facility] Address [address] [place] [address] Care Team Providers Care Senior Ui Web Developer Name Role Phone Erica Portillo MD Primary Care Provider + Encounter Details Date Type Department Care Team (Late st Contact Info) Description 07/15/2007 Outpatient Historical [facility] Maternal and Ground Floor S [facility] [address] [place] [address] Jean Tucker MD NO ADDRESS ON FILE Social History Tobacco Use Types Packs/Day Years Used Date Smoking Tobacco: Never Assessed Comments Unknown Sex and Gender Information Value Date Recorded Sex Assigned at Not on file Legal 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:59 AM 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
--- OUTSIDE RECORDS SUMMARY | 2025-05-15 05:16 | XMS_ITS | Encounter Summary ---
Author Organization [facility] Address [address] [place] [address] Care Team Providers Care Information Systems Project Manager Name Role Phone Erica Portillo MD Primary Care Provider + Encounter Details Date Type Department Care Team (Late st Contact Info) Description 07/30/[address] [facility] Maternal and Ground Floor S [facility] [address] [place] [phone] Jean Tucker MD NO ADDRESS ON FILE Social History Tobacco Use Types Packs/Day Years Used Date Smoking Tobacco: Never Assessed Comments Unknown Sex and Gender Information Value Date Recorded Sex Assigned at Not on file Legal 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
--- OUTSIDE RECORDS SUMMARY | 2025-05-15 05:16 | XMS_ITS | Data Portability ---
Author Organization [facility] Address [address] [place] [address] Care Team Providers Care Clarifying Plant Operator Name Role Phone TRAVIS AKIKO Primary Care Provider Assessment Encounter Date Assessment Date Assessment LastModified by Organization Details LastModified Time 03/22/2024 03/22/2024 Annual gynecological exam performed. Patient will come back in a year unless there are new symptoms. [email or web address] Not available 03/22/2024 11:53:48 Plan of Treatment Reminders Order Date Submit Date Provider Last Modified By Organization Details Last Modified Time Details Appointments None recorded. Lab None recorded. Referral None recorded. Procedures None recorded. Surgeries None recorded. Imaging None recorded. Medication Orders Zepbound 5 mg/0.5 mL subcutaneou s pen injector 2024 025 [facility] #[id number], [address], [place], [id number], 5 12:57:19 phentermine 30 mg capsule 2023 024 [facility] #95999, [address], [place], [id number], 4 18:12:52 topiramate 50 mg tablet 2023 024 [facility] #95062, [address], [place], [id number], 4 18:12:53 Ozempic 2 mg/dose (8 mg/3 mL) subcutaneou s pen injector 2023 024 [place] [address] [facility] #84704, [address], [place], [id number], 4 16:40:35 Ozempic 2 mg/dose (8 mg/3 mL) subcutaneou s pen injector 2023 024 [place] [address] [facility] #65160, [address], [place], [id number], 4 16:40:35 Ozempic 2 mg/dose (8 mg/3 mL) subcutaneou s pen injector 2022 023 [place] [address] [facility], [address], [place], [id number], 4 16:40:35 Patient TargetsNo targets recorded. Patient [...] Neopl sanjana (if appli cable ): Signi huong t Clini terrence Findi ngs: Other Histo [...] is recom landen d, as clini melanie warrjayme nted. Not Available [facility] (Lab) [address], [place], [address], 03/29/2024 13:55:01 Result Notes None recorded. Problems Name Problem SNOMED Code Status Onset Date Resolution Date Notes Provider Name and Address Organization Details Recorded Time SNOMED CT Concept Completed 201712/30/2020 Encntr for pharmacy clinical specialist exam (general) (routine) w/o abn findings; Recorded Elsewhere : No Locati on: [facility] So urce: EHR Chron ic: N Practic e ID: [id number] Bill able Time: 04:15:00 PM Katie [facility] 16:45:27 Pain in female genitalia Completed 201712/30/2020 Dysmenorr hea;Recor ded Elsewhere : No Locati on: [facility] So urce: EHR Chron ic: N Practic e ID: [id number] Bill able Time: 04:15:00 PM Katie [facility] 16:45:22 Migraine [id number] Completed 201712/30/2020 Migraine; Recorded Elsewhere : No Locati on: [facility] So urce: EHR Chron ic: N Practic e ID: [id number] Bill able Time: 02:00:00 PM Katie [facility] 16:45:25 Problem Notes None recorded. Procedures Surgical History Date Name Laterality Status Provider Name and Address Organization Details Recorded Time 024 Date of Last Pap Smear completed Gloria Jordan [facility] 06/23/2024 16:10:51 022 Date of Last Mammogram [facility] 03/22/2024 11:23:53 022 echocardiography completed Naida [facility] 03/22/2024 11:24:41 021 TOTAL HYSTERECTOMY, LAPAROSCOPIC, WITH BILATERAL SALPINGO-OOPHORECTO MY (SURG) completed Kimmie Smallwood [facility] 02/02/2021 11:49:34 021 procedure on knee completed Naida [facility] 03/22/2024 11:55:35 018 echocardiography completed Naida [facility] 03/22/2024 11:24:36 014 Cholecystectomy [facility] 05/09/2022 16:30:02 008 Endometrial Ablation completed [facility] 05/09/2022 16:30:10 001 Appendectomy completed [facility] 05/09/2022 16:29:55 993 procedure on eye completed [facility] 05/09/2022 16:30:17 992 procedure on knee completed [facility] 03/22/2024 11:55:23 procedure on knee completed Halima hopkins [facility] 05/09/2022 16:30:28 Imaging Results None recorded. Procedure Notes None recorded. Medical Equipment None Reported. Allergies Allergen ID Allergen Name Allergen Category Reaction Reaction Severity Criticality Documentation Date Start Date Code Code System Note Provider Name and Address Organization Details Recorded Time 23106 codeine medicatio n Not available Not available Not available 08/06/2020 5485 RxNorm React ion: Hives /Skin Rash; Comme nt: Locat ion: [facility]; Not Available [facility] 14:24:31 Medications Name [...] route every day 12/30 completed Prescrib ed Elsewher e: Yes Loca tion: [facility] odify By: [email or web address] Encoun ter [...] completed Not Available Not Available Not Available [facility] Thyroid 15 mg tablet TAKE 1 TABLET [...] completed Not Available Not Available Not Available [facility] Thyroid 30 mg tablet TAKE 1 TABLET [...] bronwyn Golden e: No Locat ion: Frieda wang [facility] odify By: [email or web address] Encounte r DateTime : 03/14/20 18 02:00:00 [...] Updated DateTime 08/22/2024 165.1 cm Gloria Jordan [facility] 08/22/2024 12:38:47 Date Recorded Body height Body mass index (BMI) Body weight Systolic And Diastolic Provider Name and Address Organization Details Last Updated DateTime 12/10/2023 165.1 cm 29 kg/m2 55411.07 g 102/67 mm[Hg] Magaly De Anda [facility] 12/10/2023 16:26:34 Date Recorded Body height Body mass index (BMI) Body weight Systolic And Diastolic Provider Name and Address Organization Details Last Updated DateTime 03/22/2024 165.1 cm 27.3 kg/m2 85827.15 g 93/57 mm[Hg] Naida Prince [facility] 03/22/2024 11:54:03 Date Recorded Body height Body mass index (BMI) Body weight Systolic And Diastolic Provider Name and Address Organization Details Last Updated DateTime 06/23/2024 165.1 cm 30.6 kg/m2 10914 g 104/71 mm[Hg] Gloria Jordan [facility] 06/23/2024 16:10:00 Date Recorded Body height Body mass index (BMI) Body weight Systolic And Diastolic Provider Name and Address Organization Details Last Updated DateTime 07/30/2023 165.1 cm 27.1 kg/m2 09729.56 g 100/66 mm[Hg] Katie Stern [facility] 07/30/2023 16:11:01 Social History Question Answer Notes LastModified by Organizat ion Details LastModified Time Tobacco Smoking Status Never Smoker Katie Stern ledy [facility] 04/19/2022 16:52:58 Do You Have An [...] Do You Have Serious Difficulty Hearing? No [email or web address] Information not available 05/09/2022 What Type Of Diet Are You Following? REGULAR Information n ot available 01/24/2021 What Is The Highest Grade Or Level Of School You Have Completed Or The Highest Degree You Have Received? [id number] Information not available 01/24/2021 Are There Any [...] Have Difficulty Walking Or Climbing Stairs? No [email or web address] Information not available 05/09/2022 Sex: Unknown Functional Status Question Answer Note LastModified by Organizat ion Details LastModified Time Do you use any illicit or recreational drugs? No Information not available 01/24/2021 What is your level of alcohol consumption? None Information not available 01/24/2021 Are you able to walk independently without assistance or assistive devices? YESWOREST Information not available 01/24/2021 Are you able to care for yourself independently? 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 No [email or web address] Information not available 05/09/2022 What is your exercise level? Moderate Information not available 01/24/2021 Mental Status Question Answer Note LastModified by Organization D etails LastModified Time Do you feel stressed (tense, restless, nervous, or anxious, or unable to sleep at night)? [id number] Information not available 01/24/2021 Family History Relationship [...] (Food, seasonal, environmental ) N Other Y Breast Cancer N Drug/Latex Allergies/Reactions Y Blood Transfusion N Dermatologic Disorders N Lung Disease N [...] Diagnosis SNOMED-CT Code Diagnosis ICD10 Code Diagnosis IMO Codes Diagnosis Note [id number] Jayden Martin MD [place] [address] [address] 02/10/2020 16:59:14 02/11/2020 10:53:31 Menopausal symptom 76886923 N95.1 This patient is a 49-year-ol d [...] . she will return in 1 month. [id number] Jayden Martin MD [place] [address],[place] [address] 03/09/2020 15:00:42 03/09/2020 21:52:34 [id number] Jayden Martin MD [place] [address],[facility] [place] [address] 12/30/2020 16:34:09 12/31/2020 11:10:54 Menopausal symptom 37703748 N95.1 Menorrhagia 111845131 N9 2.0 t his patient is a 50-year-ol d female with [...] and her activities of daily living. Dysmenorrhea 787479275 N 94.6 [id number] Jayden Martin MD [place] [address],[facility] [place] [address] 01/24/2021 12:39:54 01/25/2021 17:53:09 Menorrhagia 508546230 N92.0 Dysmenorrhea 844983661 N 94.6 this patient is a 50-year-ol d female with menorrhagi a and dysmenorrh ea. We have agreed to perform total laparoscop ic hysterecto my and bilateral salpingo-o ophorectom y. She understand s the risks, benefits, and alternativ es to the procedure. She has completed the informed consent process and is ready to proceed. [id number] Jayden Martin MD [place] [address] [address] 02/03/2021 09:21:20 02/03/2021 09:22:27 [id number] Jayden Martin MD [place] [address] [address] 02/10/2021 12:41:52 02/11/2021 09:52:14 Menopausal symptom 44320563 N95.1 This patient is a 50-year-ol d [...] as needed. We discussed her [employer] testing. [id number] Jayden Martin MD [place] [address] [address] 04/19/2022 16:39:17 04/19/2022 17:54:47 Menopausal symptom 47336773 N95.1 Gynecologi c examination 72125254 Z01.419 Annual gynecologi terrence exam performed. 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 Exercise is [...] recently had all lab work done at [facility], results pending, will discuss at f/u appointmen [...] review of plan of care. Bipolar disorder 8633805 4 F31.9 Fatigue 84942297 R53.83 [id number] Jayden Martin MD [place] [address] [address] 05/09/2022 16:13:08 05/10/2022 13:49:18 Obesity 800700511 E66.9 This patient is a 51-year-ol d [...] We agreed to follow-up in 4 weeks. [id number] Jayden Martin MD [place] [address],[place] [address] 06/13/2022 16:59:58 06/14/2022 15:14:11 Obesity 921081588 E66.9 This patient is a 51-year-ol d [...] We agreed to follow-up in 1 month. [id number] Jayden Martin MD [place] [address],[place] [address] 07/11/2022 15:43:26 07/11/2022 17:51:12 Obesity 045351682 E66.9 This patient is a 51-year-ol d [...] was counseling . Impaired g lucose tolerance 9955258 R73.03 [id number] Jayden Martin MD [place] [address],[place] [address] 08/08/2022 17:27:51 08/09/2022 12:42:23 Impaired glucose tolerance 3598115 R73.03 this patient is a 51-year-ol d [...] counseling . She return in 4 weeks. [id number] Jayden Martin MD [place] [address],[place] [address] 09/26/2022 16:59:27 09/27/2022 15:07:53 Impaired glucose tolerance 2813576 R73.03 this patient is a 51-year-ol d [...] counseling . She return in 4 weeks. [id number] Jayden Martin MD [place] [address],[place] [address] 11/07/2022 16:11:59 11/07/2022 17:40:08 Prediabetes 748198634 R73.03 this patient is a 52-year-ol d female presents for weight management follow-up. She continues to lose weight excellent pace. She is using Ozempic. She would like to move up to the next dose. We agreed to 1 mg q.week. 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 She is exercising well. She is doing everything right at this point. She will follow-up in 4 weeks. We spent 20 minutes face-to-fa ce. More than 50% was counseling . [id number] Jayden Martin MD [place] [address],[place] [address] 12/15/2022 15:57:06 12/17/2022 21:08:16 Prediabetes 439443551 R73.03 this patient is a 52-year-ol d [...] She will follow-up in 1 month. Obesity 635749630 E66.9 [id number] Jayden Martin MD [place] [address],[place] [address] 02/10/2023 11:05:20 02/12/2023 15:41:27 Prediabetes 102594305 R73.03 this patient is a 52-year-ol d [...] ce. More than 50% was counseling . [id number] Jayden Martin MD [place] [address],[place] [address] 03/20/2023 10:03:27 03/20/2023 11:30:20 Prediabetes 350684728 R73.03 This patient is a 52-year-ol d [...] weekly. She will follow-up in 2 months. [id number] Jayden Martin MD [place] [address],[place] [address] 07/30/2023 16:05:12 07/30/2023 16:42:40 Prediabetes 866236306 R73.03 This patient is a 52-year-ol d [...] Ozempic. To start at 2 mg q.week. [id number] Jayden Martin MD [place] [address],[place] [address] 12/10/2023 16:18:23 12/10/2023 17:03:16 Prediabetes 777648795 R73.03 This patient is a 52-year-ol d [...] Ozempic. To start at 2 mg q.week. [id number] Jayden Martin MD [place] [address],[place] [address] 03/22/2024 11:45:22 03/22/2024 12:22:37 Prediabetes 913453588 R73.03 This patient is a 52-year-ol d [...] at 2 mg q.week. Gynecologi c examination 80516622 Z01.419 Z11.51 Annual gynecologi terrence exam performed. [...] Cholestero l - done Pap - today [id number] Jayden Martin MD [place] [address] [address] 06/23/2024 15:57:35 06/24/2024 10:58:21 Obesity 243456341 E66.9 this patient is a 53-year-ol d [...] We discussed exercise and calorie management . [id number] Jayden Martin MD [place] [address] [address] 08/22/2024 12:01:13 08/22/2024 13:36:46 Obesity 936392646 E66.9 this patient is a 53-year-ol d [...] ID Guarantor Name 04/17/2022 1 [employer] (POS) [id number] Armida Mcelroy [id number] Eve Rivero Christellejose f 08/22/2024 1 [employer]) [id number] Armida Mcelroy [id number] 039 Eve Mcelroy Notes Date Note Type Note Provider Name and Address Organization Details Recorded Time 07/30/20 23 text/htm l This patient is a 52-year-old female presents [...] q.week. Jayden Martin MD [address], [place], [address], [facility] 07/30/2023 16:38:52 12/10/19 24 text/htm l This patient is a 52-year-old female presents [...] q.week. Jayden Martin MD [address], [place], [address], [facility] 12/10/2023 17:02:44 03/22/20 24 text/htm l Annual GYNReported by PatientHistoryFor history, patient reportsno gynecologic complaints.Genitourinary symptomsFor urinary symptoms, patient reportsno hematuriaandno incontinence. For vulva, patient reportsno genital lesion. For vagina, patient reportsnormal vaginal discharge.Breast symptomsFor breast, patient reportsno breast painandno breast lump.Endocrine symptomsFor sexual complaints, patient reportsno sexual complaintsandno pain during intercourse. For menopausal symptoms, patient reportsno menopausal symptoms.Psychological symptomsFor psychological symptoms, patient reportsno depressionandno anxiety.Preventative measuresFor preventive measures, patient reportsencourage self breast examinationandencourage regular exercise. Jayden Martin MD [address], [place], [address], [facility] 03/22/2024 12:21:09 06/23/20 24 text/htm l this patient is a 53-year-old female presents [...] management. Jayden Martin MD [address], [place], [address], [facility] 06/23/2024 18:12:59 08/22/19 25 text/htm l this patient is a 53-year-old female presents [...] management. Jayden Martin MD [address], [place], [address], [facility] 08/22/2024 13:07:07 OBGyn Episode Ob Episode Information Episode Created Date Number of Fetuses Patient Bloodtype Patient rh Status Prepregnancy Weight lbs Domestic Partner Domestic Partner Phone Father Name Weed Burner Status 12/31/19 21 1 CLOSED Fetus Data [...]
--- OUTSIDE RECORDS SUMMARY | 2025-05-15 05:16 | XMS_ITS | Clinical Summary ---
Author Organization [facility] Address [address] [place] [address] Phone Care Team Providers Care Professor Of Radiology Name Role Phone Unavailable Unavailable Unavailable Reason for Visit and Chief Complaint GENERAL OFFICE VISIT Plan of Treatment No Plan of [...] On 1 6:04PM By MIGUE FLAHERTY ; [facility] Escitalopram Oxalate 20 MG Oral Tablet 03/21/2020 Pr ovider: Diagnosis: Last Documented On 0 2:12PM By Brenda Valencia MA ; [facility] Estradiol 1 MG Oral Tablet 03/21/2020 Provider: Diagnosis: Last Documented On 0 2:13PM By Brenda Valencia MA ; [facility] Progesterone Micronized 100 MG Oral Capsule 03/21/2020 Provider: Diagnosis: Last Documented On 0 2:13PM By Brenda Valencia MA ; [facility] buPROPion HCl ER (XL) 150 MG Oral Tablet Extended Release 24 Hour 03/21/2020 Provider: Diagnosis: Last Documented On 0 2:14PM By Brenda Valencia MA ; [facility] Ciprofloxacin HCl 500 MG Oral Tablet 03/21/2020 Provider: DORCAS MUNOZ Diagnosis: 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 One tablet twice a day Last Documented On 0 2:27PM By Dorcas MUNOZ ; [facility] metroNIDAZOLE 500 MG Oral Tablet 03/21/2020 Provider: DORCAS MUNOZ Diagnosis: 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 One tablet twice a day Last Documented On 0 2:28PM By Dorcas MUNOZ ; [facility] Medications Administered Includes: Administered Medications from this [...] ctive Last Documented On 0 2:14PM ; [facility] Encounters Encounter Provider Location Date Check-In Time Check- Out Time Diagnosis [facility] 1 3:30PM 11:59PM Insurance Includes: Active Insurance Policies No Insurance Coverage Recorded Guarantor Relationship Effective Dates Guarantor Ph one ILAN GALLAGHER [id number] Clinical Notes Includes: Clinical Notes from this encounter No Clinical Notes Recorded
--- OUTSIDE RECORDS SUMMARY | 2025-05-15 05:16 | XMS_ITS | Encounter Summary ---
Author Organization [facility] Address [address] [place] [address] Care Team Providers Care Mind Reader Name Role Phone Erica Portillo MD Primary Care Provider + Encounter Details Date Type Department Care Team (Late st Contact Info) Description 07/08/2007 Outpatient Historical [facility] Maternal and Ground Floor S [facility] [address] [place] [address] Tal Montiel MD [address] [address] Social History Tobacco Use Types Packs/Day Years Used Date Smoking Tobacco: Never Assessed Comments Unknown Sex and Gender Information Value Date Recorded Sex Assigned at Not on file 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
--- OUTSIDE RECORDS SUMMARY | 2025-05-15 05:16 | XMS_ITS | Encounter Summary ---
Author Organization [facility] Address 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
--- OUTSIDE RECORDS SUMMARY | 2025-05-15 05:16 | XMS_ITS | Encounter Summary ---
Author Organization [facility] Address [address] [place] [address] Care Team Providers Care Gas Or Water Meter Installer Name Role Phone Erica Portillo MD Primary Care Provider + Encounter Details Date Type Department Care Team (Late st Contact Info) Description 08/06/2007 Outpatient Historical [facility] Maternal and Ground Floor S [facility] [address] [place] [address] Jean Tucker MD NO ADDRESS ON FILE Social History Tobacco Use Types Packs/Day Years Used Date Smoking Tobacco: Never Assessed Comments Unknown Sex and Gender Information Value Date Recorded Sex Assigned at Not on file 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
--- OUTSIDE RECORDS SUMMARY | 2025-05-15 05:16 | XMS_ITS | Encounter Summary ---
Author Organization [facility] Address 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 Gender Identity Not on file Sexual Orientation Not on file documented as of this encounter Plan of Treatment Not on file documented as of this encounter Procedures Procedure Name Priority Date/Time Associated Diagnosis Comments SURFACTANT ALBUMIN FLM II Routine 08/06/2007 10:33 AM ASSEMBLER BICYCLE documented in this encounter Results * SURFACTANT ALBUMIN FLM II (08/06/2007 10:33 AM ASSEMBLER BICYCLE) SURFACTANT ALBUMIN FLM II 60 55 - 160 mg/g INTERFACE SYSTEM Comment: Reference Range Based on Single < or = 39 Immature 40 - 54 = Caution(Intermediate) > or = 55 Mature called to jessie at 08/06/07 1:24 PM 08/06/2007 10:3 3 AM ASSEMBLER BICYCLE us Madina Parrish MD BODY FLUIDS AND STOOLS E dited INTERFACE SYSTEM Refer to clinic/hospital department documented in this encounter Visit Diagnoses Diagnosis Supervision of other normal documented in this encounter Care Teams Telecommunicator Relationship Specialty Start Date End Date Erica Portillo MD PCP - General 08/23/15 05/01/19 documented as of this encounter
[2025-05-15 05:17] VITALS: BP 127/92; PULSE 71; RESP 14; TEMP 36.8; O2SAT 97
--- OUTSIDE RECORDS SUMMARY | 2025-05-15 05:59 | XMS_ITS | Encounter Summary ---
Author Organization [facility] Address 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
--- OUTSIDE RECORDS SUMMARY | 2025-05-15 05:59 | XMS_ITS | Clinical Summary ---
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 Care Teams Special Officer Automat Relationship Specialty Start Date End Date Dion Rangle MD [address] [facility] [address] [place] [address] PCP - General Internal Medicine 06/20/18
--- OUTSIDE RECORDS SUMMARY | 2025-05-15 05:59 | XMS_ITS | Clinical Summary ---
Author Organization [facility] Address [address] [place] [address] Phone Care Team Providers Care Rail Switch Operator Name Role Phone Unavailable Unavailable Unavailable Reason for Visit and Chief Complaint The Chief Complaint is: Diverticulitis flare Plan of Treatment Discussed s/s of abdominal distress and when to go to ER. If symptoms do not improve go to ER or follow up with PCP. - Last Documented On 03/21/2020 2:31PM ; [facility] Assessments Includes: Assessments from this encounter Findings - Diverticulitis of colon without perforation or abscess [K57.32 - Diverticulitis of large intestine without perforation or abscess without bleeding] - Last Documented On 03/21/2020 2:31PM ; [facility] Medical Equipment - Implanted Devices Includes: Current [...] bleeding One tablet twice a day Pharmacy: [facility] [place] [address], [id number] - Last Documented On 0 2:27PM By Dorcas MUNOZ ; [facility] metroNIDAZOLE 500 MG Oral Tablet Provider: DORCAS N GONZALES PSYCHOLOGY TECHNICIAN-C 7 day supply: 14 tablet, 0 refills Diagnosis: Dvtrcli of lg int w/o perforation or abscess w/o bleeding One tablet twice a day Pharmacy: [address], [id number] - Last Documented On 0 2:28PM By Dorcas MUNOZ ; [facility] Current Medications (continue as prescribed) levoFLOXacin 500 MG Oral Tablet 02/17/2021 Provider: MIGUE KRAUS PSYCHOLOGY TECHNICIAN-BC Diagnosis: Acute maxillary sinusitis, unspecified One tablet daily Last Documented On 1 6:04PM By MIGUE KRAUS [facility] ; [facility] Escitalopram Oxalate 20 MG Oral Tablet 03/21/2020 Pr ovider: Diagnosis: Last Documented On 0 2:12PM By Brenda Valencia MA ; [facility] Estradiol 1 MG Oral Tablet 03/21/2020 Provider: Diagnosis: Last Documented On 0 2:13PM By Brenda Valencia MA ; [facility] Progesterone Micronized 100 MG Oral Capsule 03/21/2020 Provider: Diagnosis: Last Documented On 0 2:13PM By Brenda Valencia MA ; [facility] buPROPion HCl ER (XL) 150 MG Oral Tablet Extended Release 24 Hour 03/21/2020 Provider: Diagnosis: Last Documented On 0 2:14PM By Brenda Valencia MA ; [facility] Medications Administered Includes: Administered Medications [...] 2.0 Last Documented: On 03/21/2020 2:17PM ; [facility] Results Includes: Results discussed during this encounter [...] 03/21/2020 Last Documented On 0 2:31PM ; [facility] Smoking Status Unknown Procedures and Surgical History Includes: Procedures from this encounter Procedures Code Diagnosis Performing Provider Service L ocation Service Date review of medications documented 1160F Last Documented On 0 2:28PM ; [facility] Clinical summary provided to patient Last Documented On 0 2:28PM ; [facility] Medical History Includes: Medical History addressed during [...] ctive Last Documented On 0 2:14PM ; [facility] Encounters Encounter Provider Location Date Check-In Time Check-Out Time Diagnosis WALK-IN CLINIC SICK VISIT DORCAS MUNOZ [facility] 03/21/20 20 2:00PM 2:25PM Diverticulitis of Colon Without Perforation Or Abscess Insurance Includes: Active Insurance Policies No Insurance Coverage Recorded Guarantor Relationship Effective Dates Guarantor Ph one ILAN GALLAGHER [id number] Clinical Notes Includes: Clinical Notes from this encounter No Clinical Notes Recorded
--- OUTSIDE RECORDS SUMMARY | 2025-05-15 05:59 | XMS_ITS | Clinical Summary ---
Author Organization [facility] [employer] Address [address] [place] [place] [address] Care Team Providers Care Drum Straightener Name Role Phone Dion Rangel MD Primary Care Provider [phone] Source Comments [facility] [employer],non-owned Affiliates and Associated Physician Practices is amultiple site organization consisting of ambulatory clinics and hospital sitesin [place], [place], [place] and [place]. This disclosure is being madepursuant to the Care Everywhere program and may not contain all information available regarding this patient. Last updated 18.[facility] [employer] Allergies Active Allergy Reactions Criticality Noted Date [...] 170.2 cm (5' 7) 08/23/2017 3:10 PM PLUG SORTER Body Mass Index 31.01 08/23/2017 3:10 PM PLUG SORTER Plan of Treatment Health Maintenance Due Date [...] Phone Billing Address Personal/Family [address] [place] [address] [employer] [phone] [place] [address] Care Teams Drum Straightener Relationship Specialty Start Date End Date Dion Rangel MD [address] [address] PCP - General Internal Medicine 12/07/16
--- OUTSIDE RECORDS SUMMARY | 2025-05-15 05:59 | XMS_ITS | Encounter Summary ---
Author Organization [facility] Address 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
--- OUTSIDE RECORDS SUMMARY | 2025-05-15 06:00 | XMS_ITS | Encounter Summary ---
Author Organization [facility] Address [address] [place] [address] Care Team Providers Care Senior Search Marketing Analyst Name Role Phone Erica Portillo MD Primary Care Provider + Encounter Details Date Type Department Care Team (Late st Contact Info) Description 08/06/2007 Outpatient Historical [facility] Maternal and Ground Floor S [facility] [address] [place] [address] Jean Tucker MD NO ADDRESS ON FILE Social History Tobacco Use Types Packs/Day Years Used Date Smoking Tobacco: Never Assessed Comments Unknown Sex and Gender Information Value Date Recorded Sex Assigned at Not on file 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
--- OUTSIDE RECORDS SUMMARY | 2025-05-15 06:00 | XMS_ITS | Encounter Summary ---
Author Organization [facility] Address [address] [place] [address] Care Team Providers Care Motion Picture Equipment Supervisor Name Role Phone Erica Portillo MD Primary Care Provider + Encounter Details Date Type Department Care Team (Late st Contact Info) Description 07/30/2007 Outpatient Historical [facility] Maternal and Ground Floor S [facility] [address] [place] [phone] Jean Tucker MD NO ADDRESS ON FILE Social History Tobacco Use Types Packs/Day Years Used Date Smoking Tobacco: Never Assessed Comments Unknown Sex and Gender Information Value Date Recorded Sex Assigned at Not on file 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
--- OUTSIDE RECORDS SUMMARY | 2025-05-15 06:00 | XMS_ITS | Clinical Summary ---
Author Organization [facility] Address [address] [place] [address] Phone Care Team Providers Care Assistant Technician Name Role Phone Unavailable Unavailable Unavailable Reason [...] On 1 6:04PM By MIGUE FLAHERTY ; [facility] Escitalopram Oxalate 20 MG Oral Tablet 03/21/2020 Pr ovider: Diagnosis: Last Documented On 0 2:12PM By Brenda Valencia MA ; [facility] Estradiol 1 MG Oral Tablet 03/21/2020 Provider: Diagnosis: Last Documented On 0 2:13PM By Brenda Valencia MA ; [facility] Progesterone Micronized 100 MG Oral Capsule 03/21/2020 Provider: Diagnosis: Last Documented On 0 2:13PM By Brenda Valencia MA ; [facility] buPROPion HCl ER (XL) 150 MG Oral Tablet Extended Release 24 Hour 03/21/2020 Provider: Diagnosis: Last Documented On 0 2:14PM By Brenda Valencia MA ; [facility] Ciprofloxacin HCl 500 MG Oral Tablet 03/21/2020 Provider: DORCAS MUNOZ Diagnosis: 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 One tablet twice a day Last Documented On 0 2:27PM By Dorcas MUNOZ ; [facility] metroNIDAZOLE 500 MG Oral Tablet 03/21/2020 Provider: DORCAS MUNOZ Diagnosis: 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 One tablet twice a day Last Documented On 0 2:28PM By Dorcas MUNOZ ; [facility] Medications Administered Includes: Administered Medications from this [...] ctive Last Documented On 0 2:14PM ; [facility] Encounters Encounter Provider Location Date Check-In Time Check- Out Time Diagnosis NEW [facility] 1 3:30PM 11:59PM Insurance Includes: Active Insurance Policies No Insurance Coverage Recorded Guarantor Relationship Effective Dates Guarantor Ph one ILAN GALLAGHER [id number] Clinical Notes Includes: Clinical Notes from this encounter No Clinical Notes Recorded
--- OUTSIDE RECORDS SUMMARY | 2025-05-15 06:00 | XMS_ITS | Encounter Summary ---
Author Organization [facility] Address [address] [place] [address] Care Team Providers Care Statistical Reporting Analyst Name Role Phone Erica Portillo MD Primary Care Provider + Encounter Details Date Type Department Care Team (Late st Contact Info) Description 07/05/2007 Outpatient Historical [facility] Maternal and Ground Floor S [facility] [address] [place] [phone] Jean Tucker MD NO ADDRESS ON FILE Social History Tobacco Use Types Packs/Day Years Used Date Smoking Tobacco: Never Assessed Comments Unknown Sex and Gender Information Value Date Recorded Sex Assigned at Not on file 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
--- OUTSIDE RECORDS SUMMARY | 2025-05-15 06:00 | XMS_ITS ---
Author Organization [facility] Address [address] [place] [address] Phone Care Team Providers Care Machinist Supervisor Name Role Phone Unavailable Unavailable Unavailable Plan of Treatment Findings Encounter Date Ordered follow-up visit in 1 -2 weeks with an office visit or sooner if symptoms persist or worsen COVID SICK VISIT- ESTABLISHED PATIENT with MIGUE [facility] 02/17/2021 Last Documented On 1 6:05PM ; [facility] Ordered patient to call if gonzález wiseman develops COVID SICK VISIT- ESTABLISHED PATIENT with MIGUE KRAUS [facility] 02/17/2021 Last Documented On 1 6:05PM ; [facility] Ordered return to the clinic if condition worsens or new symptoms arise COVID SICK VISIT- ESTABLISHED PATIENT with MIGUE KRAUS [facility] 02/17/2021 Last Documented On 1 6:05PM ; [facility] Instructions to patient Go to the emergency room if condition worsens Last Documented On 1 6:04PM ; [facility] Watch for signs/symptoms of infection Last Documented On 1 6:04PM ; [facility] Watch for signs/symptoms of infection, return to the clinic if seen Last Documented On 1 6:04PM ; [facility] Education and Decision Aids were provided during visit for: Patient education about anti biotics: need to finish even if feeling better Last Documented On 1 6:04PM ; [facility] Assessments Includes: Assessments for all patient encounters Findings Encounter Date Acute sinusitis COVID SICK VISIT- ES TABLISHED PATIENT with MIGUE FLAHERTY 02/17/2021 Last Documented On 1 6:05PM ; [facility] Diverticulitis of colon with out perforation or abscess WALK-IN CLINIC SICK VISIT with DORCASPeg MUNOZ 03/21/2020 Last Documented On 0 2:31PM ; [facility] Instructions Includes: Instructions for all patient encounters Instructions to patient Go to the emergency room if condition worsens Last Documented On 1 6:04PM ; [facility] Watch for signs/symptoms of infection Last Documented On 1 6:04PM ; [facility] Watch for signs/symptoms of infection, return to the clinic if seen Last Documented On 1 6:04PM ; [facility] Education and Decision Aids were provided during visit for: Patient education about anti biotics: need to finish even if feeling better Last Documented On 1 6:04PM ; [facility] Medical Equipment - Implanted Devices Includes: Current and historical Devices No Medical Equipment Recorded Medications Includes: Current and historical Medications Current Medications (continue as prescribed) levoFLOXacin 500 MG Oral Tablet 02/17/2021 Provider: MIGUE FLAHERTY Diagnosis: Acute maxillary sinusitis, unspecified One tablet daily Last Documented On 1 6:04PM By MIGUE KRAUS CAR ICERAIIN ; [facility] Escitalopram Oxalate 20 MG Oral Tablet 03/21/2020 Pr ovider: Diagnosis: Last Documented On 0 2:12PM By Brenda Valencia MA ; [facility] Estradiol 1 MG Oral Tablet 03/21/2020 Provider: Diagnosis: Last Documented On 0 2:13PM By Brenda Valencia MA ; [facility] Progesterone Micronized 100 MG Oral Capsule 03/21/2020 Provider: Diagnosis: Last Documented On 0 2:13PM By Brenda Valencia MA ; [facility] buPROPion HCl ER (XL) 150 MG Oral Tablet Extended Release 24 Hour 03/21/2020 Provider: Diagnosis: Last Documented On 0 2:14PM By Brenda Valencia MA ; [facility] Ciprofloxacin HCl 500 MG Oral Tablet 03/21/2020 Provider: DORCAS MUNOZ Diagnosis: 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 One tablet twice a day Last Documented On 0 2:27PM By Dorcas MUNOZ ; [facility] metroNIDAZOLE 500 MG Oral Tablet 03/21/2020 Provider: DORCAS MUNOZ Diagnosis: 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 One tablet twice a day Last Documented On 0 2:28PM By Dorcas MUNOZ ; [facility] Medications Administered Includes: Administered Medications in patient's chart No Administered Medications Recorded Results Includes: Results from 05/15/2024 through 05/15/2025 No Results Recorded For Specified Dates History of Present Illness History of Present Illness not supported for this document type No History of Present Illness Recorded Social History Description Last Updated Non-smoker 03/21/2020 Last Documented On 0 2:31PM ; [facility] Smoking Status Unknown Medical History Includes: Medical [...] ctive Last Documented On 0 2:14PM ; [facility] Insurance Includes: Active Insurance Policies No Insurance Coverage Recorded Guarantor Relationship Effective Dates Guarantor Ph one ILAN GALLAGHER [id number] Clinical Notes Includes: Signed Clinical Notes starting from 09/08/2022 No Clinical Notes Recorded
--- OUTSIDE RECORDS SUMMARY | 2025-05-15 06:00 | XMS_ITS | Clinical Summary ---
Author Organization [facility] Address [address] [address] Phone Care Team Providers Care Road Freight Conductor Name Role Phone Sarah Nobles MD Unavailable [phone] Arianne Carlisle MD Unavailable [phone] Benji Pierre MD Primary Care Provi will [...] Continue current medications. Follows with Psych in [place]. Assessment & Plan (03/30/2022 8:02 AM CDT): [...] Continue current medications. Follows with Psych in [place]. Assessment & Plan (03/30/2022 8:02 AM CDT): [...] today. Assessment & Plan (10/07/2020 12:01 PM MATERIAL FLOW ENGINEER): Feeling fatigued. Check TSH and free T4 [...] states that she followed with Pulmonary in [place] several years ago and they told her [...] 03/09/2017 Overview (01/03/2024): Follows with Psych in [place]. Assessment & Plan (01/03/2024 3:14 PM CDT): Stable. Continue current medications. Follows with Psych in [place]. Assessment & Plan (03/30/2022 8:01 AM CDT): [...] daily. Assessment & Plan (08/16/2017 2:26 PM MATERIAL FLOW ENGINEER): Improved with addition of Seroquel. Explained to [...] 04/24/2021 Overview (04/24/2021): History of [facility] cardiology consultation with senior living advice that infectious illness with compromise in immunity Preop exam for internal medicine 10/07/2020 01/03/2024 Assessment & Plan (10/07/2020 12:00 PM MATERIAL FLOW ENGINEER): Scheduled for cataract extraction next week. She is an acceptable candidate for low risk cataract extraction. No further cardiac testing is required. Preop H&P forms completed. Abdominal distension 10/07/2020 024 Assessment & Plan (10/07/2020 12:12 PM MATERIAL FLOW ENGINEER): Intermittent abdominal distension, without pain or cramping. [...] provided. Assessment & Plan (10/07/2020 11:13 AM MATERIAL FLOW ENGINEER): BMI Follow-up includes: nutrition counseling, exercise counseling [...] 09/19/201804/2020 Assessment & Plan (09/19/2018 11:10 AM MATERIAL FLOW ENGINEER): Patient here to today for physical exam. The patient was evaluated and all health maintenance objectives were discussed and addressed. Bipolar affective disorder in remission 12/13/2017 02/26/2020 Uterine fibroid 12/13/2017 02/26/2020 Generalized abdominal pain 12/12/2017 0 02/26/2020 Overview (12/14/2017): Added automatically from request for surgery [id number] Snoring 08/16/2017 02/26/2020 Assessment & Plan (08/16/2017 2:26 PM MATERIAL FLOW ENGINEER): Refer to Dr. Holder for evaluation. Chronic [...] 2:26 PM CDT): Will assess response to [place] Thyroid. Subclinical hypothyroidism 03/27/2017 0 01/07/2020 Assessment [...] but cost is an issue. Trial of [place] thyroid 30 grams daily. Will repeat TSH in 2 and 4 months. TSH will 0.45-2.5. Follow-up in 4 months. BMI 30.0-30.9,adult 03/09/2017 02/26/20 Assessment & Plan (08/28/2018 4:26 PM MATERIAL FLOW ENGINEER): BMI Follow-up includes: nutrition counseling, exercise counseling [...] Type Department Care Team Description 03/20/2025 Telephone [facility] [address] [place] [address] [place] [phone] Chencho Gates MA 03/19/2025 Telephone [facility] [address] [place] [address] [address] [place] [address] Benji Pierre MD Symptom Based Call 03/17/2025 Telephone [facility] [address] [place] [address] [address] [place] [address] Benji Pierre MD No improvement to rash 03/11/2025 Results Follow-Up [facility] [address] [place] [address] [address] [place] [address] Chandni Renteria NP Hepatitis B surface antibody (immune status) Blood, Hepatitis B core antibody, total Blood, Hepatitis B Surface Antigen Blood, Additional followed-up results: 10 03/10/2025 6:36 PM CDT - 03/10/2025 11:59 PM CDT Hospital Encounter [facility] [address] [place] [address] Discharge Disposition: Discharge to home or self care 03/10/2025 3:30 PM CDT Office Visit [facility] [address] [place] [address] [place] [phone] Chandni Renteria NP Palpitation (Primary Dx); SOB [...] swelling; Muscle spasm; Rash 03/09/2025 Nurse Triage [facility] [address] [place] [address] [place] [phone] Benji Pierre MD from Last 3 Months [...] on file Legal Sex Female 1:10 AM MATERIAL FLOW ENGINEER Gender Identity Not on file Sexual [...] ORDERABLES Fin al Result Performing Organization Address City/[facility]/ZIP Co de Phone Number [facility] [address] [place] [address] * Thyroid Function [facility] (03/10/2025 4:50 PM CDT) TSH 3.44 0.30 - 4.20 mcIUnit/mL Blood 03/10/2025 4:50 PM CDT 03/10/2025 5:20 PM CDT Chandni Renteria OIL RECOVERY OPERATOR LAB BLOOD ORDERABLES Fin al Result Performing Organization Address [facility]/ZIP Co de Phone Number [facility] [address] [address] [place] [address] * Vitamin D 25 hydroxy (03/10/2025 4:50 PM CDT) Vitamin D 25-OH 34 30 - 80 ng/mL Blood 03/10/2025 4:50 PM CDT 03/10/2025 5:20 PM CDT us Chandni Renteria NP LAB BLOOD ORDERABLES Fin al Result [facility] [address] [facility]. [place] [address] * (ABNORMAL) Lipid panel (03/10/2025 4:50 PM [...] BLOOD ORDERABLES Fin al Result [facility] R[facility]SE[facility] [address] [facility]. [place] [address] * Comprehensive metabolic panel (03/10/2025 4:50 PM [...] BLOOD ORDERABLES Fin al Result [facility] [address] [place] [address] * Differential, auto (03/10/2025 4:50 PM CDT) [...] CERNER [facility] Neutrophil pct 70.6 % [facility] Comment: Interpretive Data Percent cell count reference ranges are not reported, since discordance with absolute values may lead to misinterpretation of CBC data. Current Interpretive Data was last revised on 2017. Imm gran pct 0.6 % [facility] Comment: Interpretive Data Percent cell count reference [...] on 2017. Eosinophil pct 1.8 % [facility] Comment: Interpretive Data Percent cell count reference [...] NP LAB BLOOD ORDERABLES Fin al Result [facility] [address] [address] [facility] [address] * (ABNORMAL) Urinalysis reflex to [...] tendency for uric acid stone formation. Source: [facility] Jibe Current Interpretive Data was last revised on [...] AL ORDERABLES Final Result Performing Organization Address [facility]/ZIP Co de Phone Number STVEO RUSSELL [address] [facility] [place] [address] * CBC with auto differential (03/10/2025 4:50 PM CDT) Pathologist [facility] WBC 7.82 3.80 - 9.90 K/cumm Hgb 13.3 11.9 - 15.5 g/dL [facility] Hct 39.0 35.6 - 45.5 % [facility] Plt 325 150 - 400 K/cumm [facility] MPV 9.1 9.1 - 12.3 fL [facility] W RBC 4.37 3.90 - 5.20 M/cumm [facility] MCV 89.2 81.3 - 96.4 fL [facility] MCH 30.4 27.1 - 33.3 pg [facility] W MCHC 34.1 32.3 - 35.7 g/dL [facility] RDW CV 12.2 11.1 - 14.9 % [facility] RDW SD 39.4 35.7 - 48.1 fL [facility] NRBC abs 0.00 0.00 - 0.01 K/cumm [facility] BJW Blood 03/10/2025 4:50 PM CDT 03/10/2025 5:21 PM CDT Chandni Renteria OIL RECOVERY OPERATOR LAB BLOOD ORDERABLES Fin al Result Performing Organization Address City/[facility]/ZIP Co de Phone Number STEVO RUSSELL [address] [place] [facility] [address] * Albumin Creatinine Ratio, Urine (03/10/2025 4:50 PM CDT) Pathologist [facility] Albumin Ur <12.0 mg/L Comment: Interpretive Data No reference range established. Current interpretive data was last revised 2018. Testing performed by: [facility], [address] [place] [address]., [id number] Creatinine Ur 278.5 mg/dL ST[facility]O RUSSELL Comment: Interpretive Data No reference range established. Current interpretive data was last revised 2018. Testing performed by: [facility], [address] [place] [address]., [id number] Albumin Creatinine Ratio, Ur <4 1 - 29 mg/g ST[facility]O RUSSELL Comment:Testing performed by : [facility], [address] [place] [address]., [id number] Urine 03/10/2025 4:50 PM CDT 03/10/2025 8:46 PM CDT Chandni Renteria NP LAB URINE ORDERABLES Fin al Result Performing Organization Address [facility] Co de Phone Number [facility] [address] [employer] [place], [place] [id number] * Hepatitis B core antibody, total Blood (03/10/2025 4:50 PM CDT) Hep B core IgG/IgM Nonreactive Nonreactive Comment:Testing performed by : [facility], [address] [place]., [address] Blood 03/10/2025 4:50 PM CDT 03/10/2025 6:52 PM CDT Chandni Renteria NP LAB MICROBIOLOGY - GENER AL ORDERABLES Final Result Performing Organization Address City/[facility] Co de Phone Number [facility] [address] [place] [address] * Hepatitis B surface antibody (immune status) Blood (03/10/2025 4:50 PM CDT) HBsAb (immune status) Nonreactive Comment: This result is consistent with a lack of immunity to Hepatitis B Virus when used in the setting of routine screening. Current interpretative data was last revised on 22 Testing performed by: [facility], [address] [place]., [address] Blood 03/10/2025 4:50 PM CDT 03/10/2025 6:52 PM CDT Chandni Renteria NP LAB MICROBIOLOGY - GENER AL ORDERABLES Final Result Performing Organization Address City/[facility] Co de Phone Number [facility] [address] [facility] [place] [address] * Hepatitis B Surface Antigen Blood (03/10/2025 4:50 PM CDT) Pathologist [facility] HepBsAg Nonreactive Nonreactive Comment:Testing performed by : [facility], [facility] [place]., [address] Blood 03/10/2025 4:50 PM CDT 03/10/2025 8:47 PM CDT Chandni Renteria NP LAB MICROBIOLOGY - GENER AL ORDERABLES Final Result Performing Organization Address [facility] de Phone Number [facility] [address] [facility] [place] [address] * (ABNORMAL) Hemoglobin A1c (03/10/2025 4:50 PM CDT) Pathologist [facility] Hgb A1C 5.8(H) 4.0 - 5.6 % Estimated Average Glucose 120 mg/dL [facility] Comment: The ADA recommends reporting an estimated Average Glucose (eAG) with all Hemoglobin A1c results using the equation derived from a study of 507 normal and diabetic adults. Minority populations were underrepresented and children were not included. (Diabetes Care 31:0400-0754, 2008). The eAG is not equivalent to a fasting glucose. Blood 03/10/2025 4:50 PM CDT 03/10/2025 5:21 PM CDT Chandni Renteria NP LAB BLOOD ORDERABLES Fin al Result Performing Organization Address City/[facility]/ZIP Co de Phone Number [facility] [address] [facility]. [place] [address] * Screening Mammogram Bilateral W Ulises (01/18/2023) [...] 03/30/2014 3:00 PM CDT Test performed at [facility] [place] [address] [place] [address] Director: ARIANNE HOLT DO,MPH Historical Provider LAB BLOOD ORDERABLES Lalitha l Result HISTORICAL RESULTS from Last 3 Months or Most Recently Relevant to Health Maintenance Insurance [facility] [employer] [place] [address] [employer] [place] WORKERS COMPENSATION GENERIC WORKERS COMPENSATION GENERIC Advance Directives For more information, please contact: [phone] * Full Code (Latest Code Status on File) Date Activated Date Inactivated Comments 12/13/2017 2:11 AM 12/14/2017 11:[address] Freight Conductor Relationship Specialty [place] [id number] [place] [address] PCP - General Internal Medicine 01/07/20 Sarah Nobles MD Consulting Physician Gastroenterology 12/14/17 [place] [address] [place] [address] Consulting Physician Pulmonary Disease 12/14/17
--- OUTSIDE RECORDS SUMMARY | 2025-05-15 06:00 | XMS_ITS | Encounter Summary ---
Author Organization [employer] Address 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
--- OUTSIDE RECORDS SUMMARY | 2025-05-15 06:00 | XMS_ITS | Encounter Summary ---
Author Organization [facility] Address [address] [place] [address] Care Team Providers Care Clinical Geneticist Name Role Phone Erica Portillo MD Primary Care Provider + Encounter Details Date Type Department Care Team (Late st Contact Info) Description 07/08/2007 Outpatient Historical [facility] Maternal and Ground Floor [facility] [address] [place] [address] Tal Montiel MD [address] [address] Social History Tobacco Use Types Packs/Day Years Used Date Smoking Tobacco: Never Assessed Comments Unknown Sex and Gender Information Value Date Recorded Sex Assigned at Not on file Legal 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:59 AM CAMPUS ADMINISTRATIVE ASSISTANT Gender Identity Not on file Sexual Orientation Not on file documented as of this encounter Plan of Treatment Not on file documented as of this encounter Visit Diagnoses Not on filedocumented in this encounter Care Teams Clinical Geneticist Relationship Specialty Start Date End Date Erica Portillo MD PCP - General 08/23/15 05/01/19 documented as of this encounter
--- OUTSIDE RECORDS SUMMARY | 2025-05-15 06:00 | XMS_ITS | Encounter Summary ---
Author Organization [facility] Address [address] [place] [address] Care Team Providers Care Certified Nuclear Medicine Technologist Name Role Phone Erica Portillo MD Primary Care Provider + Encounter Details Date Type Department Care Team (Latest Contact Info) Description 07/19/[address] [facility] Madina Parrish MD NO ADDRESS ON FILE Supervision of Other Normal Social History Tobacco Use Types Packs/Day Years Used Date Smoking Tobacco: Never Assessed Comments Unknown Sex and Gender Information Value Date Recorded Sex Assigned at Not on file Legal 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:59 AM MOTOR SCOOTER MECHANIC Gender Identity Not on file Sexual Orientation Not on file documented as of this encounter Plan of Treatment Not on file documented as of this encounter Procedures Procedure Name Priority Date/Time Associated Diagnosis Comments SURFACTANT ALBUMIN FLM II Routine 08/06/2007 10:33 AM MOTOR SCOOTER MECHANIC documented in this encounter Results * SURFACTANT ALBUMIN FLM II (08/06/2007 10:33 AM MOTOR SCOOTER MECHANIC) SURFACTANT ALBUMIN FLM II 60 55 - 160 mg/g INTERFACE SYSTEM Comment: Reference Range Based on Single < or = 39 Immature 40 - 54 = Caution(Intermediate) > or = 55 Mature called to jessie at 08/06/07 1:24 PM 08/06/2007 10:3 3 AM MOTOR SCOOTER MECHANIC us Madina Parrish MD BODY FLUIDS AND STOOLS E dited INTERFACE SYSTEM Refer to clinic/hospital department documented in this encounter Visit Diagnoses Diagnosis Supervision of other normal documented in this encounter Care Teams Certified Nuclear Medicine Technologist Relationship Specialty Start Date End Date Erica Portillo MD PCP - General 08/23/15 05/01/19 documented as of this encounter
--- OUTSIDE RECORDS SUMMARY | 2025-05-15 06:00 | XMS_ITS | Encounter Summary ---
Author Organization [facility] Address [address] [place] [address] Care Team Providers Care Vice President Of Operations Name Role Phone Erica Portillo MD Primary Care Provider + Encounter Details Date Type Department Care Team (Late st Contact Info) Description 08/06/2007 Outpatient Historical [facility] Maternal and Ground Floor S [facility] [address] [place] [address] Jean Tucker MD NO ADDRESS ON FILE Social History Tobacco Use Types Packs/Day Years Used Date Smoking Tobacco: Never Assessed Comments Unknown Sex and Gender Information Value Date Recorded Sex Assigned at Not on file Legal 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:59 AM AVIATION MAINTENANCE INSTRUCTOR Gender Identity Not on file Sexual Orientation Not on file documented as of this encounter Plan of Treatment Not on file documented as of this encounter Visit Diagnoses Not on filedocumented in this encounter Care Teams Vice President Of Operations Relationship Specialty Start Date End Date Erica Portillo MD PCP - General 08/23/15 05/01/19 documented as of this encounter
--- OUTSIDE RECORDS SUMMARY | 2025-05-15 06:00 | XMS_ITS ---
Care Plan - [facility] Created on: May 15, 2025 ILAN GALLAGHER : 1970 Sex: Female Author Organization [facility] Address [address] [place] [address] Phone Care Team Providers Care Property Man Name Role Phone Unavailable Unavailable Unavailable
--- OUTSIDE RECORDS SUMMARY | 2025-05-15 06:00 | XMS_ITS | Clinical Summary ---
Author Organization [facility] Address [address] [place] [address] Phone Care Team Providers Care Long Chain Quiller Tender Name Role Phone Unavailable Unavailable Unavailable Reason for Visit and Chief Complaint COVID SICK VISIT- ESTABLISHED PATIENT Plan of Treatment - Return to the clinic if condition worsens or new symptoms arise - Last Documented On 02/17/2021 6:05PM ; [facility] - Follow-up visit in 1-2 weeks with an office visit or sooner if symptoms persist or worsen - Last Documented On 02/17/2021 6:05PM ; [facility] - Patient to call if problem develops - Last Documented On 02/17/2021 6:05PM ; [facility] Instructions to patient Go to the emergency room if condition worsens Last Documented On 6:04PM ; [facility] Watch for signs/symptoms of infection Last Documented On 6:04PM ; [facility] Watch for signs/symptoms of infection, return to the clinic if seen Last Documented On 6:04PM ; [facility] Education and Decision Aids were provided during visit for: Patient education about anti biotics: need to finish even if feeling better Last Documented On 6:04PM ; [facility] Assessments Includes: Assessments from this encounter Findings - Acute sinusitis - Last Documented On 02/17/2021 6:05PM ; [facility] Instructions Includes: Instructions from this encounter Instructions to patient Go to the emergency room if condition worsens Last Documented On 1 6:04PM ; [facility] Watch for signs/symptoms of infection Last Documented On 1 6:04PM ; [facility] Watch for signs/symptoms of infection, return to the clinic if seen Last Documented On 1 6:04PM ; [facility] Education and Decision Aids were provided during visit for: Patient education about anti biotics: need to finish even if feeling better Last Documented On 1 6:04PM ; [facility] Medical Equipment - Implanted Devices Includes: Current Devices No Medical Equipment Recorded Medications Includes: Medications discussed during this encounter and other current Medications New / Renewed during this visit MIGUE FLAHERTY on 02/17/2021 levoFLOXacin 500 MG Oral Tablet Provider: MIGUE FLAHERTY 10 day supply: 10 tablet, 0 refills Diagnosis: Acute maxillary sinusitis, unspecified One tablet daily Pharmacy: [address], [phone] - Last Documented On 1 6:04PM By MIGUE COLE-PHUONG ; [facility] Current Medications (continue as prescribed) Escitalopram Oxalate 20 MG Oral Tablet 03/21/2020 Pr ovider: Diagnosis: Last Documented On 0 2:12PM By Brenda Valencia MA ; [facility] Estradiol 1 MG Oral Tablet 03/21/2020 Provider: Diagnosis: Last Documented On 0 2:13PM By Brenda Valencia MA ; [facility] Progesterone Micronized 100 MG Oral Capsule 03/21/2020 Provider: Diagnosis: Last Documented On 0 2:13PM By Brenda Valencia MA ; [facility] buPROPion HCl ER (XL) 150 MG Oral Tablet Extended Release 24 Hour 03/21/2020 Provider: Diagnosis: Last Documented On 0 2:14PM By Brenda Valencia MA ; [facility] Ciprofloxacin HCl 500 MG Oral Tablet 03/21/2020 Provider: DORCAS MUNOZ Diagnosis: 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 One tablet twice a day Last Documented On 0 2:27PM By Dorcas MUNOZ ; [facility] metroNIDAZOLE 500 MG Oral Tablet 03/21/2020 Provider: DORCAS MUNOZ Diagnosis: 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 One tablet twice a day Last Documented On 0 2:28PM By Dorcas MUNOZ ; [facility] Medications Administered Includes: Administered [...] 03/21/2020 Last Documented On 1 6:04PM ; [facility] Smoking Status Unknown Procedures and Surgical History Includes: Procedures from this encounter Procedures Code Diagnosis Performing Provider Service L ocation Service Date medication instruction Last Documented On 1 6:04PM ; [facility] continue current medication Last Documented On 1 6:04PM ; [facility] the options include decongestants as nee ded per product instructions Last Documented On 1 6:04PM ; [facility] the options include antihistamines as ne eded per product instructions Last Documented On 1 6:04PM ; [facility] watch for signs/symptoms of infection Last Documented On 1 6:04PM ; [facility] watch for signs/symptoms of infection, r eturn to the clinic if seen Last Documented On 1 6:04PM ; [facility] Pt to use prescription as ordered. Purpo se of and use of medication discussed.~ Last Documented On 1 6:04PM ; [facility] Pt to use OTC fever/pain product as need ed per product instruction.~ Last Documented On 1 6:04PM ; [facility] Pt to use OTC cough product as needed pe r product instruction.~ Last Documented On 1 6:04PM ; [facility] Pt to use OTC expectorant product as nee ded per product instruction.~ Last Documented On 1 6:04PM ; [facility] plan of care reviewed and agreed to by t he patient Last Documented On 1 6:04PM ; [facility] Medical History Includes: Medical History addressed during [...] ctive Last Documented On 0 2:14PM ; [facility] Encounters Encounter Provider Location Date Check-In Time Check-Out Time Diagnosis COVID SICK VISIT- ESTABLISHED PATIENT MIGUE KRAUS DAIRY AND FOOD LABORATORY ASSISTANT-BC [facility] 02/18/20 21 5:44PM 6:06PM Sinusitis Acute Insurance Includes: Active Insurance Policies No Insurance Coverage Recorded Guarantor Relationship Effective Dates Guarantor Ph one AILEEN ILANJavi Dumont [id number] Clinical Notes Includes: Clinical Notes from this encounter No Clinical Notes Recorded
--- OUTSIDE RECORDS SUMMARY | 2025-05-15 06:00 | XMS_ITS | Encounter Summary ---
Author Organization [facility] Address [address] [place] [address] Care Team Providers Care Cost Recovery Technician Name Role Phone Erica Portillo MD Primary Care Provider + Encounter Details Date Type Department Care Team (Late st Contact Info) Description 07/23/2007 Outpatient Historical [facility] Maternal and Ground Floor S [facility] [address] [place] [address] Pierce Pascual MD NO ADDRESS ON FILE Social History Tobacco Use Types Packs/Day Years Used Date Smoking Tobacco: Never Assessed Comments Unknown Sex and Gender Information Value Date Recorded Sex Assigned at Not on file Legal 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:59 AM SUPERVISOR SPECIAL EFFECTS Gender Identity Not on file Sexual Orientation Not on file documented as of this encounter Plan of Treatment Not on file documented as of this encounter Visit Diagnoses Not on filedocumented in this encounter Care Teams Cost Recovery Technician Relationship Specialty Start Date End Date Erica Portillo MD PCP - General 08/23/15 05/01/19 documented as of this encounter
--- OUTSIDE RECORDS SUMMARY | 2025-05-15 06:00 | XMS_ITS | Encounter Summary ---
Author Organization [facility] Address [address] [place] [address] Care Team Providers Care Laundry Assistant Name Role Phone Erica Portillo MD Primary Care Provider + Encounter Details Date Type Department Care Team (Late st Contact Info) Description 09/11/2009 [facility] Blood Flow [address] [place] [address] Walter Payne MD [address] 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
--- OUTSIDE RECORDS SUMMARY | 2025-05-15 06:00 | XMS_ITS | Encounter Summary ---
Author Organization [facility] Address [address] [place] [address] Care Team Providers Care A And P Mechanic Name Role Phone Erica Portillo MD Primary Care Provider + Encounter Details Date Type Department Care Team (Latest Contact Info) Description 08/20/2007 Outpatient Historical [facility] Madina Parrish MD NO ADDRESS ON FILE Supervision of Other Normal Social History Tobacco Use Types Packs/Day Years Used Date Smoking Tobacco: Never Assessed Comments Unknown Sex and Gender Information Value Date Recorded Sex Assigned at Not on file Legal 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:59 AM RESIDENT INTERN Gender Identity Not on file Sexual Orientation Not on file documented as of this encounter Plan of Treatment Not on file documented as of this encounter Visit Diagnoses Diagnosis Supervision of other normal documented in this encounter Care Teams A And P Mechanic Relationship Specialty Start Date End Date Erica Portillo MD PCP - General 08/23/15 05/01/19 documented as of this encounter
--- OUTSIDE RECORDS SUMMARY | 2025-05-15 06:00 | XMS_ITS | Clinical Summary ---
Author Organization [facility] Address [address] [place] [address] Phone Care Team Providers Care Time Analysis Clerk Name Role Phone Unavailable Primary Care Provider [...] tablet Take 1 Tab by mouth daily ccnp. 30 Tab 0 2 Active venlafaxine SR 24 hour (EFFEXOR XR) 150 mg capsule 3 Active Active Problems Patient Care Coordination No te Formatting of this note migh t be different from the original. Parking Enforcer: Dr. Alec Rome ( [facility] ) Problem Noted Date Diagnosed Date History [...] ECHO virus infection Overview (08/11/2013): History of [facility] cardiology consultation with rat exterminator advice that infectious illness with compromise [...] on file Legal 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:59 AM CURATOR OF MANUSCRIPTS Gender Identity Not on file Sexual Orientation Not on file Occupation Industry Job Start Date Job End Date Not on file Not on file Not on file Not on file Last Filed Vital Signs Vital Sign Reading Time Taken Comments Blood Pressure 107/73 08/11/2013 3:24 PM CURATOR OF MANUSCRIPTS Pulse 71 08/11/2013 3:24 PM CURATOR OF MANUSCRIPTS Temperature 36.3 C (97.3 F) 05/09/2012 2:49 PM CDT Respiratory Rate 16 05/09/2012 2:49 PM CDT Oxygen Saturation 97% 05/09/2012 2:49 PM CDT Inhaled Oxygen Concentration - - Weight 76.8 kg (169 lb 6.4 oz) 08/11/2013 3:24 P M CURATOR OF MANUSCRIPTS Height 170.2 cm (5' 7) 08/11/2013 3:24 PM CURATOR OF MANUSCRIPTS Body Mass Index 26.53 08/11/2013 3:24 PM CURATOR OF MANUSCRIPTS Plan of Treatment Health Maintenance Due Date [...] Associated Diagnosis Comments CERV/VAG CYTOPATH, THIN PREP CARE MANAGEMENT SPECIALIST AND HPV Routine 08/11/2013 3:43 PM CURATOR OF MANUSCRIPTS Well woman exam with routine gynecological exam Cervical high risk human papillomavirus (HPV) DNA test positive from Last 3 Months or Most Recently Relevant to Health Maintenance Results * CERV/VAG CYTOPATH, THIN PREP CARE MANAGEMENT SPECIALIST AND HPV (08/11/2013 3:43 PM CURATOR OF MANUSCRIPTS) PAP INTERP Negative for intraepithelial lesion or malignancy. [employer] [facility] Comment: Performed by [facility], [address] [place] [address] CYTOLOGY INFECTION Fungal organisms morphologically consistent with Gay spp. [facility] [employer] [facility] Academic Affairs Director Pap Comment This Pap test has been evaluated with computer assisted technology. [facility] [employer] [facility] ADEQUACY: Satisfactory for evaluation. Endocervical/reed sformation zone component present. Age and/or menstrual status not provided [facility] CLINICAL INFORMATION SCREENING [facility] SOURCE Endocervix [facility] LABORATORY SERVICES [facility] PREV PAP: Information not provided [facility] QUANTITATIVE ANALYST DEVELOPER: LYN JAMES(ASCP) [facility] LABORATORY SERVICES [facility] LAST MENSTRUAL PERIOD Information not provided [facility] PREV BX: Information not provided [facility] HPV HIGH RISK DNA DETECTION NOT DETECTED NOT DETECTED [facility] Comment: Tested for high risk types 16,18,31,33,35,39,45,51,52, 56,58,59,68. The analytical performance characteristics of this assay, when used to test SurePath or vaginal specimens, have been determined by [facility]. Methodology: Hybrid Capture with Signal Amplification. Lab test performed by: [facility] [address] [place] [address] JOSE YODER MD Endocervical 08/11/2013 3:43 PM CURATOR OF MANUSCRIPTS 08/12/2013 3:46 PM CURATOR OF MANUSCRIPTS Comment:ENDOCERVICAL Narrative [facility] LABORATORY SERVICES - [facility] - 08/21/2013 6:21 PM CURATOR OF MANUSCRIPTS ECC us Madina Parrish MD PATHOLOGY/CYTOLOGY ORDER PETTY Edited Result - Final [facility] CLIA# [id number] [address] [place] [address] from Last 3 Months or Most Recently Relevant to Health Maintenance Advance Directives For more information, please contact: [phone] * Full Code (Latest Code Status on [...]
--- OUTSIDE RECORDS SUMMARY | 2025-05-15 06:00 | XMS_ITS | Encounter Summary ---
Author Organization [facility] Address [address] [place] [address] Care Team Providers Care Sports Equipment Supervisor Name Role Phone Erica Portillo [...] on file Legal 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:59 AM HAIRSPRING ASSEMBLER Gender Identity Not on file Sexual Orientation Not on file documented as of this encounter Plan of Treatment Not on file documented as of this encounter Procedures Procedure Name Priority Date/Time Associated Diagnosis Comments CBC WITH DIFFERENTIAL Routine 08/06/2007 11:31 AM HAIRSPRING ASSEMBLER CBC WITH DIFFERENTIAL Routine 08/06/2007 11:31 AM HAIRSPRING ASSEMBLER URINALYSIS W/REFLEX MICROSCOPIC Routine 08/06/2007 11:31 AM HAIRSPRING ASSEMBLER documented in this encounter Results * (ABNORMAL) URINALYSIS (08/06/2007 11:31 AM HAIRSPRING ASSEMBLER) COLOR UA Pale Yellow INTERFAC E SYSTEM [...] /HPF INTERFACE SYSTEM 08/06/2007 11:3 1 AM HAIRSPRING ASSEMBLER Madina Parrish MD URINE ORDERABLES Edited Performing Organization Address City/[facility] Co de Phone Number INTERFACE SYSTEM Refer to clinic/hospital department * (ABNORMAL) CBC WITH DIFFERENTIAL (08/06/2007 11:31 AM HAIRSPRING ASSEMBLER) NEUTROPHILS 76(H) 45 - 70 % INTERFAC [...] K/uL INTERFACE SYSTEM 08/06/2007 11:3 1 AM HAIRSPRING ASSEMBLER Madina Parrish MD HEMATOLOGY ORDERABLES Ed ited INTERFACE SYSTEM Refer to clinic/hospital department * (ABNORMAL) CBC WITH DIFFERENTIAL (08/06/2007 11:31 AM HAIRSPRING ASSEMBLER) WBC 9.5 4.0 - 9.8 K/uL INTERFACE [...] fL INTERFACE SYSTEM 08/06/2007 11:3 1 AM HAIRSPRING ASSEMBLER us Madina Parrish MD HEMATOLOGY ORDERABLES Ed ited INTERFACE SYSTEM Refer to clinic/hospital department documented in this encounter Visit Diagnoses Diagnosis delivery, without mention of indication, delivered, with or without mention of antepartum condition documented in this encounter Care Teams Sports Equipment Supervisor Relationship Specialty Start Date End Date Erica Portillo MD PCP - General 08/23/15 05/01/19 documented as of this encounter
--- OUTSIDE RECORDS SUMMARY | 2025-05-15 06:00 | XMS_ITS | Encounter Summary ---
Author Organization [facility] Address [address] [place] [address] Care Team Providers Care Battery Hand Name Role Phone Erica Portillo MD Primary Care Provider + Encounter Details Date Type Department Care Team (Late st Contact Info) Description 07/15/2007 Outpatient Historical [facility] Maternal and Ground Floor S [facility] [address] [place] [id number] Jean Tucker MD NO ADDRESS ON FILE Social History Tobacco Use Types Packs/Day Years Used Date Smoking Tobacco: Never Assessed Comments Unknown Sex and Gender Information Value Date Recorded Sex Assigned at Not on file Legal 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:59 AM ENROBING MACHINE OPERATOR Gender Identity Not on file Sexual Orientation Not on file documented as of this encounter Plan of Treatment Not on file documented as of this encounter Visit Diagnoses Not on filedocumented in this encounter Care Teams Battery Hand Relationship Specialty Start Date End Date Erica Portillo MD PCP - General 08/23/15 05/01/19 documented as of this encounter
--- OUTSIDE RECORDS SUMMARY | 2025-05-15 06:00 | XMS_ITS | Encounter Summary ---
Author Organization [email or web address] [facility] Address [address] [place] [address] Care Team Providers Care Merchandising Professor Name Role Phone Erica Portillo MD Primary Care Provider + Encounter Details Date Type Department Care Team (Latest Contact Info) Description 07/04/2007 Inpatient Historical [facility], [place] [address] [place] [address] Madina Parrish MD NO ADDRESS ON FILE Hemorrhage from Placenta Previa, Antepartum (Primary Dx) Social History Tobacco Use Types Packs/Day Years Used Date Smoking Tobacco: Never Assessed Comments Unknown Sex and Gender Information Value Date Recorded Sex Assigned at Not on file Legal 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:59 AM FRAMING MACHINE TENDER Gender Identity Not on file Sexual Orientation Not on file documented as of this encounter Plan of Treatment Not on file documented as of this encounter Procedures Procedure Name Priority Date/Time Associated Diagnosis Comments CBC WITH DIFFERENTIAL Routine 07/04/2007 10:45 PM FRAMING MACHINE TENDER CBC WITH DIFFERENTIAL Routine 07/04/2007 10:45 PM FRAMING MACHINE TENDER documented in this encounter Results * (ABNORMAL) CBC WITH DIFFERENTIAL (07/04/2007 10:45 PM FRAMING MACHINE TENDER) NEUTROPHILS 70 45 - 70 % INTERFAC [...] K/uL INTERFACE SYSTEM 07/04/2007 10:4 5 PM FRAMING MACHINE TENDER us Madina Parrish MD HEMATOLOGY ORDERABLES Ed ited Performing Organization Address City/State/[facility] Co de Phone Number INTERFACE SYSTEM Refer to clinic/hospital department * (ABNORMAL) CBC WITH DIFFERENTIAL (07/04/2007 10:45 PM FRAMING MACHINE TENDER) WBC 11.0(H) 4.0 - 9.8 K/uL INTERFACE [...] fL INTERFACE SYSTEM 07/04/2007 10:4 5 PM FRAMING MACHINE TENDER Madina Parrish MD HEMATOLOGY ORDERABLES Ed ited Performing Organization Address City/State/[facility] Co de Phone Number INTERFACE SYSTEM Refer to clinic/hospital department documented in this encounter Visit Diagnoses Diagnosis Hemorrhage from placenta previa, antepartum- Primary documented in this encounter Care Teams Merchandising Professor Relationship Specialty Start Date End Date Erica Portillo MD PCP - General 08/23/15 05/01/19 documented as of this encounter
[2025-05-15] MEDS: ONDANSETRON HCL ODT 4 MG TABLET PO (06:08)
[2025-05-15] MEDS: KETOROLAC 30 MG/ML VIAL (*BKC) IM (06:08)
[2025-05-15] MEDS: HYDROmorphone HCL INJ (*CRX) 1 MG/ML SYR IM (06:09)
[2025-05-15 06:38] VITALS: BP 137/90; PULSE 64; RESP 13; O2SAT 92
--- NOTE | 2025-05-15 06:38 | ED.LOWEXIN ---
HPI - Extremity Injury (Lower) General Chief Complaint: Extremity Injury, Lower Stated Complaint: knee pain Time Seen by Provider: 05/15/25 05:28 History of Present Illness HPI Narrative: 54-year-old female presenting to the emergency depart with left knee pain. She has had multiple arthroscopies and repair for meniscus on that side. She states she twisted it while in bed and has been having pain for last 2 days. Denies any paresthesias or weakness in the limb. Not taking anything besides ibuprofen at home. Ambulatory with a limp. She sees Dr. Alex from Orthopedics for this. Patient denies any other symptoms at this time. Related Data Home Medications ?Medication ?Instructions ?Recorded ?Confirmed ?Last Taken ?Type bupropion HCl 150 mg 24 hr tablet, 150 mg PO DAILY 01/19/21 01/30/25 02/01/21 07:30 History extended release escitalopram oxalate 20 mg tablet 20 mg PO DAILY 01/19/21 01/30/25 02/01/21 07:30 History Allergies Allergy/AdvReac Type Severity Reaction Status Date / Time codeine Allergy Unknown Hives Verified 01/30/25 13:25 Review of Systems Review of Systems: As reviewed above in [facility] Past Medical History Medical History Depression Anxiety Obesity Osteoarthritis of both knees Surgical History Surgical History History of History of cholecystectomy History of appendectomy History of arthroscopy of both knees Family History Family History Other Family history of malignant neoplasm Social History Social History Smoking status: Never smoker Alcohol intake: never Substance use: never Substance use type: does not use Do You Feel Safe in your Home?: Yes Lack of Transportation: No Lack of Food: Never True Current Housing: I Have Housing Concerned About Future Housing: No Difficulty Paying Gas/Electric Bills: No Difficulty Paying for Meds: No Currently Unemployed: No Education: Master's Degree or Higher Difficulty w/ Childcare or Family Care: No Living arrangements: alone Spiritual care concerns: No Exam Narrative: GENERAL: [Well-appearing, well-nourished, and in no acute distress.] HEAD: [Normocephalic, atraumatic.] EYES: [PERRLA and EOMI.] ENT: Nares clear, no rhinorrhea or epistaxis. Mucous membranes moist. NECK: Supple. CHEST: [Clear to auscultation. No respiratory distress.] HEART: [Regular rate and rhythm]. No murmur heard. [Normal peripheral pulses.] ABDOMEN: [Soft, nondistended], [nontender], [No rigidity or guarding] EXTREMITIES: Tenderness along the medial joint line, no laxity with valgus or varus stress testing. Tenderness along the medial patellar facet, intact extensor mechanisms, no tenderness along the patellar quadriceps insertion site. Plantar and ankle dorsiflexion are full do not elicit pain at the knee. Ambulates with antalgic gait favoring her right side. SKIN: Warm, dry, no rash. NEURO: [No focal deficits]. Alert and oriented [x3.] PSYCH: [Normal mood and affect.] Course Vital Signs Vital signs: Vital Signs Temperature 36.8 C 05/15/25 05:17 Pulse Rate 71 05/15/25 05:17 Respiratory Rate 14 05/15/25 05:17 Blood Pressure 127/92 H 05/15/25 05:17 Pulse Oximetry 97 05/15/25 05:17 Oxygen Delivery Room Air 05/15/25 05:17 Temperature 36.8 C 05/15/25 05:17 Pulse Rate 64 05/15/25 06:38 Respiratory Rate 13 05/15/25 06:38 Blood Pressure 137/90 05/15/25 06:38 Pulse Oximetry 92 05/15/25 06:38 Oxygen Delivery Room Air 05/15/25 05:17 MDM - Extremity Injury (Lower) MDM Narrative Medical decision making narrative: 54-year-old female presenting to the emergency depart with left knee pain. She has had multiple arthroscopies and repair for meniscus on that side. She states she twisted it while in bed and has been having pain for last 2 days. Denies any paresthesias or weakness in the limb. Not taking anything besides ibuprofen at home. Ambulatory with a limp. She sees Dr. Alex from Orthopedics for this. Patient denies any other symptoms at this time. Tenderness along the medial joint line, no laxity with valgus or varus stress testing. Tenderness along the medial patellar facet, intact extensor mechanisms, no tenderness along the patellar quadriceps insertion site. Plantar and ankle dorsiflexion are full do not elicit pain at the knee. Ambulates with antalgic gait favoring her right side. Patient hemodynamically stable, warm pulses, no neurovascular compromise. Symptoms consistent with internal derangement of the knee verses arthritis. X-rays obtained she was given analgesia. Given a knee immobilizer and crutches for ambulation of needed. Will follow up with her orthopedic surgeon on outpatient basis. Medical Records Attestation: I reviewed the patient's medical records. Imaging Data Attestation: I personally reviewed and interpreted this imaging study as follows: My impression: No traumatic injury, fracture, or malalignment, joint space narrowing especially laterally consistent with our 3 arthritis. Discharge Plan Discharge Clinical Impression: Acute internal derangement of knee, Acute pain of left knee Patient Disposition: Home Condition: Stable Instructions: Antibiotic Form Additional Instructions: No obvious bony abnormality aside from chronic osteoarthritis. Wear the knee immobilizer for comfort. We have prescribed use some anti-inflammatories. Follow-up with orthopedics for definitive care and further imaging such as an MRI. Patient Language: Prydeinig Prescriptions: New ketorolac 10 mg tablet 10 mg PO Q8H PRN (Reason: pain) 5 Days Qty: 20 0RF Rx Instructions: maximum total duration of 5 days from all oral, intranasal, or parenteral formulations No Action escitalopram oxalate 20 mg tablet 20 mg PO DAILY bupropion HCl 150 mg tablet extended release 24 hr 150 mg PO DAILY Follow-up/Referrals: Gabby,Duane Terry MD [Primary Care Provider] Time of Disposition: 07:09
--- NOTE | 2025-05-15 08:17 | PC.NURSE ---
went to room to discharge patient, belongings and drinks in the room, patient not in room.
[2025-05-15 08:40] VITALS: BP 140/78; PULSE 78; RESP 18; O2SAT 100
== END 2025-05-15 08:21 | disposition home or self-care (01) ==
PROVIDERS: Emergency Provider Student in an Organized Health Care Education/Training Program; PCP Internal Medicine
DX: M23.8X2 Other internal derangements of left knee (principal); M25.562 Pain in left knee
CPT/HCPCS: 73562; 96372; 99284; A9270; J1171; J1885

== ENCOUNTER 2025-05-15 08:53 | Outpatient (CLI) | payer BC, SELFPAY ==
--- NOTE | ~2025-05-15 | XR_ITS ---
EXAMINATION: XR knee LT min 4V, 05/15/2025 9:05 CDT HISTORY: M25.562 - Pain in left knee, PAIN LATERAL, RADIATES UP COMPARISON: No comparisons available. Findings: No acute fracture or malalignment. No significant degenerative changes. Soft tissues unremarkable. Impression: No acute fracture or malalignment. Reviewed, dictated and finalized at location P. Impression: No acute fracture or malalignment.
--- OUTSIDE RECORDS SUMMARY | 2025-05-15 09:01 | XMS_ITS | Clinical Summary ---
Author Organization [facility] Address [address] [place] [address] Phone Care Team Providers Care Centerless Grinding Machine Adjuster Name Role Phone Dion Rangel MD Primary Care Provider [phone] Allergies Active Allergy Reactions Criticality Noted Date [...] PF 07/22/2024 ,06/30/2014 Influenza,Split Virus,Trivalent,Injectable,PF 06/14/2012 Novel [id number], Injectable 06/20/2009 Pneumococcal Vaccine - 13 Valent [...] on file Legal Sex Female 2:52 AM HOSPITAL ACCOUNT LIAISON Gender Identity Not on file Sexual Orientation Not on file Last Filed Vital Signs Vital Sign Reading Time Taken Comments Blood Pressure 94/72 2024 1:38 PM HOSPITAL ACCOUNT LIAISON Pulse 85 2024 1:38 PM HOSPITAL ACCOUNT LIAISON Temperature 37.3 C (99.1 F) 2024 1:38 PM HOSPITAL ACCOUNT LIAISON Respiratory Rate 16 2024 1:38 PM HOSPITAL ACCOUNT LIAISON Oxygen Saturation 97% 2024 1:38 PM HOSPITAL ACCOUNT LIAISON Inhaled Oxygen Concentration - - Weight 87.7 kg (193 lb 6 oz) 2024 1:38 PM HOSPITAL ACCOUNT LIAISON Height 170.2 cm (5' 7) 06/20/2018 2:57 [...] patient's age to complete this topic Insurance [facility] Care Teams Centerless Grinding Machine Adjuster Relationship Specialty Start Date End Date Dion Rangel MD [address] [facility] [address] [place] [address] PCP - General Internal Medicine 06/20/18
--- OUTSIDE RECORDS SUMMARY | 2025-05-15 09:01 | XMS_ITS | Patient Health Record ---
Author Organization [facility] Address [address] [place] [address] Care Team Providers Care Automotive Mechanic Name Role Phone Belle Tinoco Unavailable [phone] JosiahLiya queen Unavailable [phone] Gian King Unavailable [phone] Allergies Allergen (clinical drug ingredient) Drug/Non Drug Allergy documented on EMR Reaction Allergy Type Onset Date Status codeine Codeine Unknown Drug Allergy 05/02/2023 Active Reason For Referral No Information Medications Medication SIG (Take, Route, Frequency, Duration) Notes Start Date End Date Status hydrOXYzine Pamoate 25 MG Capsule 1 capsule Orally three times a day; Duration: 90 days As needed Active buPROPion HCl ER (XL) 300 MG Tablet Extended Release 24 Hour 1 tablet in the morning Oral Once a day; Duration: 90 days Active ARIPiprazole 5 MG Tablet 1 tablet Oral O nce a day; Duration: 90 days 11/16/2023 Active DULoxetine HCl 60 MG Capsule Delayed Release Particles 1 capsule Oral Once a day; Duration: 90 days 11/16/2023 Active Social History Tobacco Use: Social History Observation Description Date Details (start date - stop date) Never Smoker NA - NA Sex Assigned At : Social History Observation Description Sex Assigned At Female Social History Tobacco Use: Social Info Question Answer Notes Tobacco Control (Standard) Tobacco use: Nonsmoker Additional Details Category Social Info Options Details Miscellaneous: 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 Den ies Do you drink alcohol? No Problems Problem Type SNOMED Code ICD Code Onset Dates Problem Status W/U Status Risk Notes Problem Generalized anxiety disorder (35089709) Generalized anxiety disorder (F41.1) 11/16/19 Active confirmed Problem Primary insomnia (6748432) Primary insomnia (F51.01) 11/16/19 24 Active confirmed Problem Insomnia disorder related to another mental disorder (09756262) Insomnia due to other mental disorder (F51.05) Active confirmed Problem Screening for cardiovascular system disease (566772921) Encounter for screening for cardiovascular disorders (Z13.6) Active confirmed Problem Recurrent major depression (55437051) MDD (recurrent major depressive disorder) in remission (F33.40) Active confirmed Problem Depression screening negative (287248447429529) Negative depression screening (Z13.31) Active confirmed Vital Signs Heart Rate 79 /min 03/30/2025 Height-cm 170.18 cm 03/30/2025 Blood pressure diastolic 78 mm Hg 03/30/2025 Weight-kg 93.62 kg 03/30/2025 Height 67.00 in 03/30/2025 Blood pressure systolic 107 mm Hg 03/30/2025 Weight 206.4 lbs 03/30/2025 BMI 32.32 kg/m2 03/30/2025 Encounters Encounter Location Date Provider Diagnosis [facility] [facility] [address] [place] [address] 07/23/2024 Gian King Generalized anxiety disorder F41.1 ; Major depressive disorder, recurrent, in remission, unspecified F33.40 and Primary insomnia F51.01 [employer] [address] 11/03/2024 Belle Tinoco T[place], [employer] [address] [place] [address] 01/06/2025 Gian Clubb Generalized anxiety disorder F41.1 ; Insomnia due to other mental disorder F51.05 ; Major depressive disorder, recurrent, in remission, unspecified F33.40 ; Negative depression screening Z13.31 and Encounter for screening for cardiovascular disorders Z13.6 [employer] [address] [facility] [address] [place] [address] 03/30/2025 Belle Tinoco Generalized anxiety disorder F41.1 ; MDD (recurrent major depressive disorder) in remission F33.40 and Primary insomnia F51.01 [facility] [employer] [address] [place] [address] 06/17/2024 Liya Gonzáles [facility] [address] [place] [address] 03/13/2025 Belle Tinoco Assessments Encounter Date Diagnosis (ICD Code) Assessment Notes Treatment Notes Treatment Clinical Notes Section Notes 01/06/2025 Generalized anxiety disorder (ICD-10 - F41.1) 01/06/2025 Insomnia due to other mental disorder (ICD-10 - F51.05) 03/30/2025 Generalized anxiety disorder (ICD-10 - F41.1) 03/30/2025 MDD (recurrent major depressive disorder) in remission (ICD-10 - F33.40) 07/23/2024 Major depressive disorder, recurrent, in remission, [...] Patient confirms feeling safe at home. 07/23/2024 Primary insomnia (ICD-10 - F51.01) 1. [...] - Patient confirms feeling safe at home. 03/30/2025 Primary insomnia (ICD-10 - F51.01) 01/06/2025 Major depressive disorder, recurrent, in remission, [...] Hydroxyzine (as needed) - Prescriptions sent to [facility] - Follow-up appointment scheduled in [...] efforts have been made to correct them. 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 Major Depressive Disorder and Generalized Anxiety Disorder Assessment: Patient reports stable mood and anxiety symptoms on current medication regimen. Denies suicidal thoughts. Sleep and appetite are reported as normal. Patient states she has finally got the right medicine and the right doses. No side effects or concerns reported. Plan: - Continue current medication regimen: - Duloxetine (Cymbalta) 60 mg - Bupropion XL 300 mg - Aripiprazole 5 mg - Hydroxyzine as needed - Follow-up in 6 months - Patient instructed to contact if any concerns arise before next appointment Medical Decision Making Armida Mcelroy is an adult female with a history of depression and anxiety, currently stable on medication management. The patient reports no current mood concerns, denies suicidal thoughts, and states her anxiety is well-controlled . Her current medication regimen, which includes duloxetine, bupropion, aripiprazole, and hydroxyzine as needed, appears to be effective without reported side effects. The patient's stable condition and lack of new symptoms or concerns suggest that the current treatment plan is appropriate and working well. No changes to the medication regimen are indicated at this time. The decision to maintain the current treatment plan is based on the patient's reported improvement in mood, anxiety, and overall functioning, as well as the absence of any new medical issues or medication side effects. Plan Of Treatment Next Appt Details Provider Name:Belle fernandez, 09/21/2025 02:45:00 PM, [address] [facility] [address] [facility] [address], [place], [address], Insurance Providers Payer Name Payer Address Payer Phone Subscriber Number Group Number Insured Name Patient Relationship to Insured Coverage Start Date Coverage End Date [facility] [address] [place] [address] [id number] ARMIDA MCELROY Self - patient is the insured Medical (General) History Medical History History ICD Code Problems: Generalized anxiety disorder Obesity Primary insomnia Recurrent major depression in remission Surgical History Surgery Date(Month/Year) Endometrial ablation (89070) Hysterectomy (28885) Removal of gallbladder (60821) Appendectomy (34503) Cataract surgery (70173)
--- OUTSIDE RECORDS SUMMARY | 2025-05-15 09:01 | XMS_ITS | Encounter Summary ---
Author Organization [facility] Address [address] [place] [address] Care Team Providers Care Finish Specialist Name Role Phone Erica Portillo MD Primary [...] on file Legal 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:59 AM TECHNOLOGY LEAD Gender Identity Not on file Sexual Orientation Not on file documented as of this encounter Plan of Treatment Not on file documented as of this encounter Visit Diagnoses Diagnosis Abdominal pain, right upper quadrant- Primary documented in this encounter Care Teams Finish Specialist Relationship Specialty Start Date End Date Erica Portillo MD PCP - General 08/23/15 05/01/19 documented as of this encounter
--- OUTSIDE RECORDS SUMMARY | 2025-05-15 09:01 | XMS_ITS | Clinical Summary ---
Author Organization [facility] Address [address] [place] [address] Phone Care Team Providers Care Lime Plant Operator Name Role Phone Unavailable Unavailable Unavailable Reason for Visit and Chief Complaint COVID SICK VISIT- ESTABLISHED PATIENT Plan of Treatment - Return to the clinic if condition worsens or new symptoms arise - Last Documented On 02/17/2021 6:05PM ; [facility] - Follow-up visit in 1-2 weeks with an office visit or sooner if symptoms persist or worsen - Last Documented On 02/17/2021 6:05PM ; [facility] - Patient to call if problem develops - Last Documented On 02/17/2021 6:05PM ; [facility] Instructions to patient Go to the emergency room if condition worsens Last Documented On 6:04PM ; [facility] Watch for signs/symptoms of infection Last Documented On 6:04PM ; [facility] Watch for signs/symptoms of infection, return to the clinic if seen Last Documented On 6:04PM ; [facility] Education and Decision Aids were provided during visit for: Patient education about anti biotics: need to finish even if feeling better Last Documented On 6:04PM ; [facility] Assessments Includes: Assessments from this encounter Findings - Acute sinusitis - Last Documented On 02/17/2021 6:05PM ; [facility] Instructions Includes: Instructions from this encounter Instructions to patient Go to the emergency room if condition worsens Last Documented On 1 6:04PM ; [facility] Watch for signs/symptoms of infection Last Documented On 1 6:04PM ; [facility] Watch for signs/symptoms of infection, return to the clinic if seen Last Documented On 1 6:04PM ; [facility] Education and Decision Aids were provided during visit for: Patient education about anti biotics: need to finish even if feeling better Last Documented On 1 6:04PM ; [facility] Medical Equipment - Implanted Devices Includes: Current Devices No Medical Equipment Recorded Medications Includes: Medications discussed during this encounter and other current Medications New / Renewed during this visit MIGUE FLAHERTY on 02/17/2021 levoFLOXacin 500 MG Oral Tablet Provider: MIGUE FLAHERTY 10 day supply: 10 tablet, 0 refills Diagnosis: Acute maxillary sinusitis, unspecified One tablet daily Pharmacy: [address], [phone] - Last Documented On 1 6:04PM By MIGUE COLE-PHUONG ; [facility] Current Medications (continue as prescribed) Escitalopram Oxalate 20 MG Oral Tablet 03/21/2020 Pr ovider: Diagnosis: Last Documented On 0 2:12PM By Brenda Valencia MA ; [facility] Estradiol 1 MG Oral Tablet 03/21/2020 Provider: Diagnosis: Last Documented On 0 2:13PM By Brenda Valencia MA ; [facility] Progesterone Micronized 100 MG Oral Capsule 03/21/2020 Provider: Diagnosis: Last Documented On 0 2:13PM By Brenda Valencia MA ; [facility] buPROPion HCl ER (XL) 150 MG Oral Tablet Extended Release 24 Hour 03/21/2020 Provider: Diagnosis: Last Documented On 0 2:14PM By Brenda Valencia MA ; [facility] Ciprofloxacin HCl 500 MG Oral Tablet 03/21/2020 Provider: DORCAS MUNOZ Diagnosis: 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 One tablet twice a day Last Documented On 0 2:27PM By Dorcas MUNOZ ; [facility] metroNIDAZOLE 500 MG Oral Tablet 03/21/2020 Provider: DORCAS MUNOZ Diagnosis: 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 One tablet twice a day Last Documented On 0 2:28PM By Dorcas MUNOZ ; [facility] Medications Administered Includes: [...] 03/21/2020 Last Documented On 1 6:04PM ; [facility] Smoking Status Unknown Procedures and Surgical History Includes: Procedures from this encounter Procedures Code Diagnosis Performing Provider Service L ocation Service Date medication instruction Last Documented On 1 6:04PM ; [facility] continue current medication Last Documented On 1 6:04PM ; [facility] the options include decongestants as nee ded per product instructions Last Documented On 1 6:04PM ; [facility] the options include antihistamines as ne eded per product instructions Last Documented On 1 6:04PM ; [facility] watch for signs/symptoms of infection Last Documented On 1 6:04PM ; [facility] watch for signs/symptoms of infection, r eturn to the clinic if seen Last Documented On 1 6:04PM ; [facility] Pt to use prescription as ordered. Purpo se of and use of medication discussed.~ Last Documented On 1 6:04PM ; [facility] Pt to use OTC fever/pain product as need ed per product instruction.~ Last Documented On 1 6:04PM ; [facility] Pt to use OTC cough product as needed pe r product instruction.~ Last Documented On 1 6:04PM ; [facility] Pt to use OTC expectorant product as nee ded per product instruction.~ Last Documented On 1 6:04PM ; [facility] plan of care reviewed and agreed to by t he patient Last Documented On 1 6:04PM ; [facility] Medical History Includes: Medical History addressed during [...] ctive Last Documented On 0 2:14PM ; [facility] Encounters Encounter Provider Location Date Check-In Time Check-Out Time Diagnosis COVID SICK VISIT- ESTABLISHED PATIENT MIGUE KRAUS TACKING STITCH REMOVER-BC [facility] 02/18/20 21 5:44PM 6:06PM Sinusitis Acute Insurance Includes: Active Insurance Policies No Insurance Coverage Recorded Guarantor Relationship Effective Dates Guarantor Ph one AILEEN ILANJavi Dumont [id number] Clinical Notes Includes: Clinical Notes from this encounter No Clinical Notes Recorded
--- OUTSIDE RECORDS SUMMARY | 2025-05-15 09:01 | XMS_ITS | Clinical Summary ---
Author Organization [facility] Address [address] [facility] [place] [address] Care Team Providers Care Press Clipper Name Role Phone Dion Rangel MD Primary Care Provider [phone] Source Comments [facility],non-owned Affiliates and Associated Physician Practices is amultiple site organization consisting of ambulatory clinics and hospital sitesin [place], [place], [place] and [place]. This disclosure is being madepursuant to the Care Everywhere program and may not contain all information available regarding this patient. Last updated 18.[facility] Allergies Active Allergy Reactions Criticality Noted Date [...] 170.2 cm (5' 7) 08/23/2017 3:10 PM INGOT WEIGHER Body Mass Index 31.01 08/23/2017 3:10 PM INGOT WEIGHER Plan of Treatment Health Maintenance Due Date [...] Phone Billing Address Personal/Family [address] [place] [address] [employer] [facility] [phone] [place] [address] Care Teams Press Clipper Relationship Specialty Start Date End Date Dion Rangel MD [address] [address] PCP - General Internal Medicine 12/07/16
--- OUTSIDE RECORDS SUMMARY | 2025-05-15 09:01 | XMS_ITS | Encounter Summary ---
Author Organization [facility] Address [address] [place] [address] Care Team Providers Care Cardiology Associate Name Role Phone Erica Portillo MD Primary Care Provider + Encounter Details Date Type Department Care Team (Latest Contact Info) Description 07/04/2007 Inpatient Historical [facility] [place], [place] [address] [place] [address] Madina Parrish MD NO ADDRESS ON FILE Hemorrhage from Placenta Previa, Antepartum (Primary Dx) Social History Tobacco Use Types Packs/Day Years Used Date Smoking Tobacco: Never Assessed Comments Unknown Sex and Gender Information Value Date Recorded Sex Assigned at Not on file Legal 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:59 AM PHYSICIAN ASSISTANT PSYCHIATRY Gender Identity Not on file Sexual Orientation Not on file documented as of this encounter Plan of Treatment Not on file documented as of this encounter Procedures Procedure Name Priority Date/Time Associated Diagnosis Comments CBC WITH DIFFERENTIAL Routine 07/04/2007 10:45 PM PHYSICIAN ASSISTANT PSYCHIATRY CBC WITH DIFFERENTIAL Routine 07/04/2007 10:45 PM PHYSICIAN ASSISTANT PSYCHIATRY documented in this encounter Results * (ABNORMAL) CBC WITH DIFFERENTIAL (07/04/2007 10:45 PM PHYSICIAN ASSISTANT PSYCHIATRY) NEUTROPHILS 70 45 - 70 % INTERFAC [...] K/uL INTERFACE SYSTEM 07/04/2007 10:4 5 PM PHYSICIAN ASSISTANT PSYCHIATRY us Madina Parrish MD HEMATOLOGY ORDERABLES Ed ited Performing Organization Address City/State/[facility] Co de Phone Number INTERFACE SYSTEM Refer to clinic/hospital department * (ABNORMAL) CBC WITH DIFFERENTIAL (07/04/2007 10:45 PM PHYSICIAN ASSISTANT PSYCHIATRY) WBC 11.0(H) 4.0 - 9.8 K/uL INTERFACE [...] fL INTERFACE SYSTEM 07/04/2007 10:4 5 PM PHYSICIAN ASSISTANT PSYCHIATRY Madina Parrish MD HEMATOLOGY ORDERABLES Ed ited Performing Organization Address City/State/[facility] Co de Phone Number INTERFACE SYSTEM Refer to clinic/hospital department documented in this encounter Visit Diagnoses Diagnosis Hemorrhage from placenta previa, antepartum- Primary documented in this encounter Care Teams Cardiology Associate Relationship Specialty Start Date End Date Erica Portillo MD PCP - General 08/23/15 05/01/19 documented as of this encounter
--- OUTSIDE RECORDS SUMMARY | 2025-05-15 09:01 | XMS_ITS | Encounter Summary ---
Author Organization [facility] Address [address] [place] [address] Care Team Providers Care Brine Mixer Operator Name Role Phone Erica Portillo MD Primary Care Provider + Encounter Details Date Type Department Care Team (Late st Contact Info) Description 06/17/2007 Outpatient Historical [facility] Maternal and Ground Floor S [facility] [address] [place] [address] Jean Tucker MD NO ADDRESS ON FILE Social History Tobacco Use Types Packs/Day Years Used Date Smoking Tobacco: Never Assessed Comments Unknown Sex and Gender Information Value Date Recorded Sex Assigned at Not on file Legal 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:59 AM OVERLAY PLASTICIAN Gender Identity Not on file Sexual Orientation Not on file documented as of this encounter Plan of Treatment Not on file documented as of this encounter Visit Diagnoses Not on filedocumented in this encounter Care Teams Brine Mixer Operator Relationship Specialty Start Date End Date Erica Potrillo MD PCP - General 08/23/15 05/01/19 documented as of this encounter
--- OUTSIDE RECORDS SUMMARY | 2025-05-15 09:01 | XMS_ITS | Clinical Summary ---
Author Organization [facility] Address [address] [place] [address] Phone Care Team Providers Care Senior Stereo Compiler Team Lead Name Role Phone Unavailable Unavailable Unavailable Reason [...] On 1 6:04PM By MIGUE FLAHERTY ; [facility] Escitalopram Oxalate 20 MG Oral Tablet 03/21/2020 Pr ovider: Diagnosis: Last Documented On 0 2:12PM By Brenda Valencia MA ; [facility] Estradiol 1 MG Oral Tablet 03/21/2020 Provider: Diagnosis: Last Documented On 0 2:13PM By Brenda Valencia MA ; [facility] Progesterone Micronized 100 MG Oral Capsule 03/21/2020 Provider: Diagnosis: Last Documented On 0 2:13PM By Brenda Valencia MA ; [facility] buPROPion HCl ER (XL) 150 MG Oral Tablet Extended Release 24 Hour 03/21/2020 Provider: Diagnosis: Last Documented On 0 2:14PM By Brenda Valencia MA ; [facility] Ciprofloxacin HCl 500 MG Oral Tablet 03/21/2020 Provider: DORCAS MUNOZ Diagnosis: 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 One tablet twice a day Last Documented On 0 2:27PM By Dorcas MUNOZ ; [facility] metroNIDAZOLE 500 MG Oral Tablet 03/21/2020 Provider: DORCAS MUNOZ Diagnosis: 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 One tablet twice a day Last Documented On 0 2:28PM By Dorcas MUNOZ ; [facility] Medications Administered Includes: Administered Medications from [...] Documented On 0 2:14PM ; [facility] Encounters Encounter Provider Location Date Check-In Time Check- Out Time Diagnosis NEW [facility] 3:30PM 11:59PM Insurance Includes: Active Insurance Policies No Insurance Coverage Recorded Guarantor Relationship Effective Dates Guarantor Ph one ILAN GALLAGHER [id number] Clinical Notes Includes: Clinical Notes from this encounter No Clinical Notes Recorded
--- OUTSIDE RECORDS SUMMARY | 2025-05-15 09:01 | XMS_ITS | Encounter Summary ---
Author Organization [facility] Address [address] [place] [address] Care Team Providers Care Screen Operator Name Role Phone Erica Portillo MD Primary Care Provider + Encounter Details Date Type Department Care Team (Late st Contact Info) Description 07/30/2007 Outpatient Historical [facility] Maternal and Ground Floor S [facility] [address] [place] [phone] Jean Tucker MD NO ADDRESS ON FILE Social History Tobacco Use Types Packs/Day Years Used Date Smoking Tobacco: Never Assessed Comments Unknown Sex and Gender Information Value Date Recorded Sex Assigned at Not on file Legal 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:59 AM BANKING PIN ADJUSTER Gender Identity Not on file Sexual Orientation Not on file documented as of this encounter Plan of Treatment Not on file documented as of this encounter Visit Diagnoses Not on filedocumented in this encounter Care Teams Screen Operator Relationship Specialty Start Date End Date Erica Portillo MD PCP - General 08/23/15 05/01/19 documented as of this encounter
--- OUTSIDE RECORDS SUMMARY | 2025-05-15 09:01 | XMS_ITS | Encounter Summary ---
Author Organization [facility] Address [address] [place] [address] Care Team Providers Care Scientist Electronics Name Role Phone Erica Portillo MD Primary Care Provider + Encounter Details Date Type Department Care Team (Late st Contact Info) Description 07/05/2007 Outpatient Historical [facility] Maternal and Ground Floor S [facility] [address] [place] [address] Jean Tucker MD NO ADDRESS ON FILE Social History Tobacco Use Types Packs/Day Years Used Date Smoking Tobacco: Never Assessed Comments Unknown Sex and Gender Information Value Date Recorded Sex Assigned at Not on file Legal 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:59 AM PUBLIC ADDRESS SYSTEMS MECHANIC Gender Identity Not on file Sexual Orientation Not on file documented as of this encounter Plan of Treatment Not on file documented as of this encounter Visit Diagnoses Not on filedocumented in this encounter Care Teams Scientist Electronics Relationship Specialty Start Date End Date Erica Portillo MD PCP - General 08/23/15 05/01/19 documented as of this encounter
--- OUTSIDE RECORDS SUMMARY | 2025-05-15 09:01 | XMS_ITS | Encounter Summary ---
Author Organization [facility] Address [address] [place] [address] Care Team Providers Care Pail Bailer Name Role Phone Erica Portillo MD Primary Care Provider + Encounter Details Date Type Department Care Team (Latest Contact Info) Description 06/17/2007 Outpatient Historical [facility] Madina Parrish MD NO ADDRESS ON FILE Other Specified Complication, Antepartum (Primary Dx) Social History Tobacco Use Types Packs/Day Years Used Date Smoking Tobacco: Never Assessed Comments Unknown Sex and Gender Information Value Date Recorded Sex Assigned at Not on file Legal 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:59 AM LUMP RECEIVER Gender Identity Not on file Sexual Orientation Not on file documented as of this encounter Plan of Treatment Not on file documented as of this encounter Visit Diagnoses Diagnosis Other specified complication, antepartum(646.83)- Primary Other specified complication, antepartum documented in this encounter Care Teams Pail Bailer Relationship Specialty Start Date End Date Erica Portillo MD PCP - General 08/23/15 05/01/19 documented as of this encounter
--- OUTSIDE RECORDS SUMMARY | 2025-05-15 09:01 | XMS_ITS | Encounter Summary ---
Author Organization [facility] Address [address] [place] [address] Care Team Providers Care Composition Weatherboard Applier Name Role Phone Erica Portillo MD Primary Care Provider + Encounter Details Date Type Department Care Team (Late st Contact Info) Description 09/11/2009 [facility] [address] [place] [address] Walter Payne MD [address] [facility] [address] [place] [address] Social History Tobacco Use Types Packs/Day Years Used Date Smoking Tobacco: Never Smokeless Tobacco: Never Alcohol Use Standard Drinks/Week Comments No 0 (1 standard drink = 0.6 oz pur e alcohol) Comments No Sex and Gender Information Value Date Recorded Sex Assigned at Not on file Legal 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:59 AM TRANSFORMER SHOP SUPERVISOR Gender Identity Not on file Sexual Orientation Not on file Occupation Industry Job Start Date Job End Date Not on file Not on file Not on file Not on file documented as of this encounter Plan of Treatment Not on file documented as of this encounter Visit Diagnoses Not on filedocumented in this encounter Care Teams Composition Weatherboard Applier Relationship Specialty Start Date End Date Erica Portillo MD PCP - General 08/23/15 05/01/19 documented as of this encounter
--- OUTSIDE RECORDS SUMMARY | 2025-05-15 09:01 | XMS_ITS | Encounter Summary ---
Author Organization [facility] Address [address] [place] [address] Care Team Providers Care Acupressure Therapist Name Role Phone Erica Portillo MD Primary Care Provider + Encounter Details Date Type Department Care Team (Late st Contact Info) Description 07/08/2007 Outpatient Historical [facility] Maternal and Ground Floor S [facility] [address] [place] [address] Tal Montiel MD [address] [address] Social History Tobacco Use Types Packs/Day Years Used Date Smoking Tobacco: Never Assessed Comments Unknown Sex and Gender Information Value Date Recorded Sex Assigned at Not on file Legal 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:59 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
--- OUTSIDE RECORDS SUMMARY | 2025-05-15 09:01 | XMS_ITS | Clinical Summary ---
Author Organization [facility] Address [address] [place] [address] Phone Care Team Providers Care Innersole Fitter Name Role Phone Unavailable Unavailable Unavailable Reason [...] On 1 6:04PM By MIGUE FLAHERTY ; [facility] Escitalopram Oxalate 20 MG Oral Tablet 03/21/2020 Pr ovider: Diagnosis: Last Documented On 0 2:12PM By Brenda Valencia MA ; [facility] Estradiol 1 MG Oral Tablet 03/21/2020 Provider: Diagnosis: Last Documented On 0 2:13PM By Brenda Valencia MA ; [facility] Progesterone Micronized 100 MG Oral Capsule 03/21/2020 Provider: Diagnosis: Last Documented On 0 2:13PM By Brenda Valencia MA ; [facility] buPROPion HCl ER (XL) 150 MG Oral Tablet Extended Release 24 Hour 03/21/2020 Provider: Diagnosis: Last Documented On 0 2:14PM By Brenda Valencia MA ; [facility] Ciprofloxacin HCl 500 MG Oral Tablet 03/21/2020 Provider: DORCAS MUNOZ Diagnosis: 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 One tablet twice a day Last Documented On 0 2:27PM By Dorcas MUNOZ ; [facility] metroNIDAZOLE 500 MG Oral Tablet 03/21/2020 Provider: DORCAS MUNOZ Diagnosis: 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 One tablet twice a day Last Documented On 0 2:28PM By Dorcas MUNOZ ; [facility] Medications Administered Includes: Administered Medications from [...] ctive Last Documented On 0 2:14PM ; [facility] Encounters Encounter Provider Location Date Check-In Time Check- Out Time Diagnosis GENERAL OFFICE [facility] 1 3:30PM 11:59PM Insurance Includes: Active Insurance Policies No Insurance Coverage Recorded Guarantor Relationship Effective Dates Guarantor Ph one ILAN GALLAGHER [id number] Clinical Notes Includes: Clinical Notes from this encounter No Clinical Notes Recorded
--- OUTSIDE RECORDS SUMMARY | 2025-05-15 09:01 | XMS_ITS | Encounter Summary ---
Author Organization [facility] Address [address] [place] [address] Care Team Providers Care Labor Representative Name Role Phone Erica Portillo MD Primary Care Provider + Encounter Details Date Type Department Care Team (Late st Contact Info) Description 08/06/2007 Outpatient Historical [facility] Maternal and Ground Floor S [facility] [address] [place] [phone] Jean Tucker MD NO ADDRESS ON FILE Social History Tobacco Use Types Packs/Day Years Used Date Smoking Tobacco: Never Assessed Comments Unknown Sex and Gender Information Value Date Recorded Sex Assigned at Not on file Legal 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:59 AM COUNTER 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
--- OUTSIDE RECORDS SUMMARY | 2025-05-15 09:01 | XMS_ITS | Encounter Summary ---
Author Organization [facility] Address 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
--- OUTSIDE RECORDS SUMMARY | 2025-05-15 09:01 | XMS_ITS | Encounter Summary ---
Author Organization [facility] Address [address] [place] [address] Care Team Providers Care Psychologist Industrial Organizational Name Role Phone Erica Portillo MD Primary Care Provider + Encounter Details Date Type Department Care Team (Latest Contact Info) Description 07/19/2007 Outpatient Historical [facility] Madina Parrish MD NO ADDRESS ON FILE Supervision of Other Normal Social History Tobacco Use Types Packs/Day Years Used Date Smoking Tobacco: Never Assessed Comments Unknown Sex and Gender Information Value Date Recorded Sex Assigned at Not on file Legal 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:59 AM EMERGENCY VETERINARIAN Gender Identity Not on file Sexual Orientation Not on file documented as of this encounter Plan of Treatment Not on file documented as of this encounter Procedures Procedure Name Priority Date/Time Associated Diagnosis Comments SURFACTANT ALBUMIN FLM II Routine 08/06/2007 10:33 AM EMERGENCY VETERINARIAN documented in this encounter Results * SURFACTANT ALBUMIN FLM II (08/06/2007 10:33 AM EMERGENCY VETERINARIAN) SURFACTANT ALBUMIN FLM II 60 55 - 160 mg/g INTERFACE SYSTEM Comment: Reference Range Based on Single < or = 39 Immature 40 - 54 = Caution(Intermediate) > or = 55 Mature called to jessie at 08/06/07 1:24 PM 08/06/2007 10:3 3 AM EMERGENCY VETERINARIAN us Madina Parrish MD BODY FLUIDS AND STOOLS E dited INTERFACE SYSTEM Refer to clinic/hospital department documented in this encounter Visit Diagnoses Diagnosis Supervision of other normal documented in this encounter Care Teams Psychologist Industrial Organizational Relationship Specialty Start Date End Date Erica Portillo MD PCP - General 08/23/15 05/01/19 documented as of this encounter
--- OUTSIDE RECORDS SUMMARY | 2025-05-15 09:01 | XMS_ITS | Encounter Summary ---
Author Organization [facility] Address [address] [place] [address] Care Team Providers Care Investigation Division Lieutenant Name Role Phone Erica Portillo MD Primary Care Provider + Encounter Details Date Type Department Care Team (Late st Contact Info) Description 07/23/2007 Outpatient Historical [facility] Maternal and Ground Floor S [facility] [address] [place] [address] Pierce Pascual MD NO ADDRESS ON FILE Social History Tobacco Use Types Packs/Day Years Used Date Smoking Tobacco: Never Assessed Comments Unknown Sex and Gender Information Value Date Recorded Sex Assigned at Not on file 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
--- OUTSIDE RECORDS SUMMARY | 2025-05-15 09:01 | XMS_ITS | Encounter Summary ---
Author Organization [facility] Address 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
--- OUTSIDE RECORDS SUMMARY | 2025-05-15 09:01 | XMS_ITS | Clinical Summary ---
Author Organization [facility] Address [address] [address] Phone Care Team Providers Care Consumer Services Advisor Name Role Phone Sarah Nobles MD Unavailable [phone] Arianne Carlisle MD Unavailable [phone] Benji Pierre MD Primary Care Provi will [...] Continue current medications. Follows with Psych in [place]. Assessment & Plan (03/30/2022 8:02 AM CDT): [...] Continue current medications. Follows with Psych in [place]. Assessment & Plan (03/30/2022 8:02 AM CDT): [...] today. Assessment & Plan (10/07/2020 12:01 PM MARKET DEVELOPMENT DIRECTOR): Feeling fatigued. Check TSH and free T4 [...] states that she followed with Pulmonary in [place] several years ago and they told her [...] 03/09/2017 Overview (01/03/2024): Follows with Psych in [place]. Assessment & Plan (01/03/2024 3:14 PM CDT): Stable. Continue current medications. Follows with Psych in [place]. Assessment & Plan (03/30/2022 8:01 AM CDT): [...] daily. Assessment & Plan (08/16/2017 2:26 PM MARKET DEVELOPMENT DIRECTOR): Improved with addition of Seroquel. Explained to [...] virus infection 04/24/2021 Overview (04/24/2021): History of [facility] cardiology consultation with skilled nursing advice that infectious illness with compromise in immunity Preop exam for internal medicine 10/07/2020 01/03/2024 Assessment & Plan (10/07/2020 12:00 PM MARKET DEVELOPMENT DIRECTOR): Scheduled for cataract extraction next week. She is an acceptable candidate for low risk cataract extraction. No further cardiac testing is required. Preop H&P forms completed. Abdominal distension 10/07/2020 024 Assessment & Plan (10/07/2020 12:12 PM MARKET DEVELOPMENT DIRECTOR): Intermittent abdominal distension, without pain or cramping. [...] provided. Assessment & Plan (10/07/2020 11:13 AM MARKET DEVELOPMENT DIRECTOR): BMI Follow-up includes: nutrition counseling, exercise counseling [...] 09/19/201804/2020 Assessment & Plan (09/19/2018 11:10 AM MARKET DEVELOPMENT DIRECTOR): Patient here to today for physical exam. The patient was evaluated and all health maintenance objectives were discussed and addressed. Bipolar affective disorder in remission 12/13/2017 02/26/2020 Uterine fibroid 12/13/2017 02/26/2020 Generalized abdominal pain 12/12/2017 0 02/26/2020 Overview (12/14/2017): Added automatically from request for surgery [id number] Snoring 08/16/2017 02/26/2020 Assessment & Plan (08/16/2017 2:26 PM MARKET DEVELOPMENT DIRECTOR): Refer to Dr. Holder for evaluation. Chronic [...] 2:26 PM CDT): Will assess response to Souris Thyroid. Subclinical hypothyroidism 03/27/2017 0 01/07/2020 Assessment [...] but cost is an issue. Trial of Souris thyroid 30 grams daily. Will repeat TSH in 2 and 4 months. TSH will 0.45-2.5. Follow-up in 4 months. BMI 30.0-30.9,adult 03/09/2017 02/26/20 Assessment & Plan (08/28/2018 4:26 PM MARKET DEVELOPMENT DIRECTOR): BMI Follow-up includes: nutrition counseling, exercise counseling [...] Type Department Care Team Description 03/20/2025 Telephone [facility] [address] [place] [address] [place] [phone] Chencho Gates MA 03/19/2025 Telephone [facility] [address] [place] [address] [address] [place] [address] Benji Pierre MD Symptom Based Call 03/17/2025 Telephone [facility] [address] [place] [address] [address] [place] [address] Benji Pierre MD No improvement to rash 03/11/2025 Results Follow-Up [facility] [address] [place] [address] [address] [place] [address] Chandni Renteria NP Hepatitis B surface antibody (immune status) Blood, Hepatitis B core antibody, total Blood, Hepatitis B Surface Antigen Blood, Additional followed-up results: 10 03/10/2025 6:36 PM CDT - 03/10/2025 11:59 PM CDT Hospital Encounter [facility] [address] [place] [address] Discharge Disposition: Discharge to home or self care 03/10/2025 3:30 PM CDT Office Visit [facility] [address] [place] [address] [place] [phone] Chandni Renteria NP Palpitation (Primary Dx); SOB [...] swelling; Muscle spasm; Rash 03/09/2025 Nurse Triage [facility] [address] [place] [address] [place] [phone] Benji Pierre MD from Last 3 Months [...] on file Legal Sex Female 1:10 AM MARKET DEVELOPMENT DIRECTOR Gender Identity Not on file Sexual Orientation [...] ORDERABLES Fin al Result Performing Organization Address City/[facility]/ZIP Co de Phone Number STEVO [facility] [address] [place] [place] [address] * Thyroid Function [place] (03/10/2025 4:50 PM CDT) TSH 3.44 0.30 - 4.20 mcIUnit/mL Blood 03/10/2025 4:50 PM CDT 03/10/2025 5:20 PM CDT Chandni Renteria REVENUE CYCLE ANALYST LAB BLOOD ORDERABLES Fin al Result Performing Organization Address [facility]/ZIP Co de Phone Number [facility] [address] [employer] [address] [place] [address] * Vitamin D 25 hydroxy (03/10/2025 4:50 PM CDT) Vitamin D 25-OH 34 30 - 80 ng/mL Blood 03/10/2025 4:50 PM CDT 03/10/2025 5:20 PM CDT us Chandni Renteria NP LAB BLOOD ORDERABLES Fin al Result [facility] [address] [facility] [place]. Department [place] [address] * (ABNORMAL) Lipid panel (03/10/2025 4:50 PM [...] BLOOD ORDERABLES Fin al Result STEVO RUSSELL [address] [facility]. Department [place] [address] * Comprehensive metabolic panel (03/10/2025 4:50 PM [...] BLOOD ORDERABLES Fin al Result STEVO RUSSELL [address] Department [place] [address] * Differential, auto (03/10/2025 4:50 PM CDT) [...] CERNER [facility] Neutrophil pct 70.6 % [facility] Comment: Interpretive Data Percent cell count reference ranges are not reported, since discordance with absolute values may lead to misinterpretation of CBC data. Current Interpretive Data was last revised on 2017. Imm gran pct 0.6 % [facility] Comment: Interpretive Data Percent cell count [...] on 2017. Eosinophil pct 1.8 % [facility] Comment: Interpretive Data Percent cell count [...] NP LAB BLOOD ORDERABLES Fin al Result [facility] [address] [facility]. Department of [employer] [address] * (ABNORMAL) Urinalysis reflex to [...] acid stone formation. Source: [facility] Current Interpretive Data was last revised on [...] AL ORDERABLES Final Result Performing Organization Address [facility]/ZIP Co de Phone Number STEVO RUSSELL [address] [address] [facility] [employer] [place] [address] * CBC with auto differential (03/10/2025 4:50 PM CDT) Pathologist [facility] WBC 7.82 3.80 - 9.90 K/cumm Hgb 13.3 11.9 - 15.5 g/dL [facility] Hct 39.0 35.6 - 45.5 % [facility] Plt 325 150 - 400 K/cumm [facility] WCH MPV 9.1 9.1 - 12.3 fL [facility] W RBC 4.37 3.90 - 5.20 M/cumm [facility] MCV 89.2 81.3 - 96.4 fL [facility] WCH MCH 30.4 27.1 - 33.3 pg [facility] W MCHC 34.1 32.3 - 35.7 g/dL [facility] BJWCH RDW CV 12.2 11.1 - 14.9 % [facility] RDW SD 39.4 35.7 - 48.1 fL [facility] NRBC abs 0.00 0.00 - 0.01 K/cumm [facility] BJW Blood 03/10/2025 4:50 PM CDT 03/10/2025 5:21 PM CDT Chandni Renteria REVENUE CYCLE ANALYST LAB BLOOD ORDERABLES Fin al Result Performing Organization Address City/[facility]/ZIP Co de Phone Number [facility] RUSSELL [address] [employer] [facility] [place] [address] * Albumin Creatinine Ratio, Urine (03/10/2025 4:50 PM CDT) Pathologist [facility] Albumin Ur <12.0 mg/L Comment: Interpretive Data No reference range established. Current interpretive data was last revised 2018. Testing performed by: [facility], [address] [place] [address]., [address] Creatinine Ur 278.5 mg/dL STEVO RUSSELL Comment: Interpretive Data No reference range established. Current interpretive data was last revised 2018. Testing performed by: [facility], [address] [place] [address]., [address] Albumin Creatinine Ratio, Ur <4 1 - 29 mg/g STEVO RUSSELL Comment:Testing performed by : [facility], [address] [place] [address]., [address] Urine 03/10/2025 4:50 PM CDT 03/10/2025 8:46 PM CDT Chandni Renteria NP LAB URINE ORDERABLES Fin al Result Performing Organization Address [facility] Co de Phone Number [facility] [address] [address] [address] [address] [place], [place] [id number] * Hepatitis B core antibody, total Blood (03/10/2025 4:50 PM CDT) Hep B core IgG/IgM Nonreactive Nonreactive Comment:Testing performed by : [facility], [address] [place]., [address] Blood 03/10/2025 4:50 PM CDT 03/10/2025 6:52 PM CDT Chandni Renteria NP LAB MICROBIOLOGY - GENER AL ORDERABLES Final Result Performing Organization Address City/[facility] Co de Phone Number [facility] [address] [address] [address] [place] [address] * Hepatitis B surface antibody (immune status) Blood (03/10/2025 4:50 PM CDT) HBsAb (immune status) Nonreactive Comment: This result is consistent with a lack of immunity to Hepatitis B Virus when used in the setting of routine screening. Current interpretative data was last revised on 22 Testing performed by: [facility], [address] [place]., [address] Blood 03/10/2025 4:50 PM CDT 03/10/2025 6:52 PM CDT Chandni Renteria NP LAB MICROBIOLOGY - GENER AL ORDERABLES Final Result Performing Organization Address City/[facility] Co de Phone Number [facility] [address] [facility] [employer] [place] [address] * Hepatitis B Surface Antigen Blood (03/10/2025 4:50 PM CDT) Pathologist [facility] HepBsAg Nonreactive Nonreactive Comment:Testing performed by : [facility], [facility] [place]., [address] Blood 03/10/2025 4:50 PM CDT 03/10/2025 8:47 PM CDT Chandni Renteria NP LAB MICROBIOLOGY - GENER AL ORDERABLES Final Result Performing Organization Address [facility] de Phone Number [facility] [address] [facility] [employer] [place] [address] * (ABNORMAL) Hemoglobin A1c (03/10/2025 4:50 PM CDT) Pathologist [facility] Hgb A1C 5.8(H) 4.0 - 5.6 % Estimated Average Glucose 120 mg/dL [facility] Comment: The ADA recommends reporting an estimated Average Glucose (eAG) with all Hemoglobin A1c results using the equation derived from a study of 507 normal and diabetic adults. Minority populations were underrepresented and children were not included. (Diabetes Care 31:5877-9651, 2008). The eAG is not equivalent to a fasting glucose. Blood 03/10/2025 4:50 PM CDT 03/10/2025 5:21 PM CDT Chandni Renteria NP LAB BLOOD ORDERABLES Fin al Result Performing Organization Address City/[facility]/ZIP Co de Phone Number [facility] [address] [facility] [place]. Department [place] [address] * Screening Mammogram Bilateral W Ulises (01/18/2023) [...] 03/30/2014 3:00 PM CDT Test performed at [employer] [employer] [place] [address] [place] [address] Director: ARIANNE HOLT DO,MPH Historical Provider LAB BLOOD ORDERABLES Lalitha l Result HISTORICAL RESULTS from Last 3 Months or Most Recently Relevant to Health Maintenance Insurance [facility] [place] [address] [employer] COMPENSATION GENERIC WORKERS COMPENSATION GENERIC Advance Directives For more information, please contact: [phone] * Full Code (Latest Code Status on File) Date Activated Date Inactivated Comments 12/13/2017 2:11 AM 12/14/2017 11:20 PM Care Teams Consumer Services Advisor Relationship Specialty [place] [address] [place] [address] PCP - General Internal Medicine 01/07/20 Sarah Nobles MD Consulting Physician Gastroenterology 12/14/17 [place] [id number] [place] [address] Consulting Physician Pulmonary Disease 12/14/17
--- OUTSIDE RECORDS SUMMARY | 2025-05-15 09:01 | XMS_ITS ---
Author Organization [facility] Address [address] [place] [address] Phone Care Team Providers Care Medical Massage Therapist Name Role Phone Unavailable Unavailable Unavailable Plan of Treatment Findings Encounter Date Ordered follow-up visit in 1 -2 weeks with an office visit or sooner if symptoms persist or worsen COVID SICK VISIT- ESTABLISHED PATIENT with MIGUE KRAUS [facility] 02/17/2021 Last Documented On 1 6:05PM ; [facility] Ordered patient to call if gonzález wiseman develops COVID SICK VISIT- ESTABLISHED PATIENT with MIGUE KRAUS [facility] 02/17/2021 Last Documented On 1 6:05PM ; [facility] Ordered return to the clinic if condition worsens or new symptoms arise COVID SICK VISIT- ESTABLISHED PATIENT with MIGUE KRAUS [facility] 02/17/2021 Last Documented On 1 6:05PM ; [facility] Instructions to patient Go to the emergency room if condition worsens Last Documented On 1 6:04PM ; [facility] Watch for signs/symptoms of infection Last Documented On 1 6:04PM ; [facility] Watch for signs/symptoms of infection, return to the clinic if seen Last Documented On 1 6:04PM ; [facility] Education and Decision Aids were provided during visit for: Patient education about anti biotics: need to finish even if feeling better Last Documented On 1 6:04PM ; [facility] Assessments Includes: Assessments for all patient encounters Findings Encounter Date Acute sinusitis COVID SICK VISIT- ES TABLISHED PATIENT with MIGUE FLAHERTY 02/17/2021 Last Documented On 1 6:05PM ; [facility] Diverticulitis of colon with out perforation or abscess WALK-IN CLINIC SICK VISIT with DORCASPeg MUNOZ 03/21/2020 Last Documented On 0 2:31PM ; [facility] Instructions Includes: Instructions for all patient encounters Instructions to patient Go to the emergency room if condition worsens Last Documented On 1 6:04PM ; [facility] Watch for signs/symptoms of infection Last Documented On 1 6:04PM ; [facility] Watch for signs/symptoms of infection, return to the clinic if seen Last Documented On 1 6:04PM ; [facility] Education and Decision Aids were provided during visit for: Patient education about anti biotics: need to finish even if feeling better Last Documented On 1 6:04PM ; [facility] Medical Equipment - Implanted Devices Includes: Current and historical Devices No Medical Equipment Recorded Medications Includes: Current and historical Medications Current Medications (continue as prescribed) levoFLOXacin 500 MG Oral Tablet 02/17/2021 Provider: MIGUE FLAHERTY Diagnosis: Acute maxillary sinusitis, unspecified One tablet daily Last Documented On 1 6:04PM By MIGUE KRAUS [facility] ; [facility] Escitalopram Oxalate 20 MG Oral Tablet 03/21/2020 Pr ovider: Diagnosis: Last Documented On 0 2:12PM By Brenda Valencia MA ; [facility] Estradiol 1 MG Oral Tablet 03/21/2020 Provider: Diagnosis: Last Documented On 0 2:13PM By Brenda Valencia MA ; [facility] Progesterone Micronized 100 MG Oral Capsule 03/21/2020 Provider: Diagnosis: Last Documented On 0 2:13PM By Brenda Valencia MA ; [facility] buPROPion HCl ER (XL) 150 MG Oral Tablet Extended Release 24 Hour 03/21/2020 Provider: Diagnosis: Last Documented On 0 2:14PM By Brenda Valencia MA ; [facility] Ciprofloxacin HCl 500 MG Oral Tablet 03/21/2020 Provider: DORCAS MUNOZ Diagnosis: 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 One tablet twice a day Last Documented On 0 2:27PM By Dorcas MUNOZ ; [facility] metroNIDAZOLE 500 MG Oral Tablet 03/21/2020 Provider: DORCAS MUNOZ Diagnosis: 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 One tablet twice a day Last Documented On 0 2:28PM By Dorcas MUNOZ ; [facility] Medications Administered Includes: Administered Medications in patient's chart No Administered Medications Recorded Results Includes: Results from 05/15/2024 through 05/15/2025 No Results Recorded For Specified Dates History of Present Illness History of Present Illness not supported for this document type No History of Present Illness Recorded Social History Description Last Updated Non-smoker 03/21/2020 Last Documented On 0 2:31PM ; [facility] Smoking Status Unknown Medical History Includes: Medical [...] ctive Last Documented On 0 2:14PM ; [facility] Insurance Includes: Active Insurance Policies No Insurance Coverage Recorded Guarantor Relationship Effective Dates Guarantor Ph one ILAN GALLAGHER [id number] Clinical Notes Includes: Signed Clinical Notes starting from 09/08/2022 No Clinical Notes Recorded
--- OUTSIDE RECORDS SUMMARY | 2025-05-15 09:01 | XMS_ITS | Clinical Summary ---
Author Organization [facility] Address [address] [facility] [place] [address] Phone Care Team Providers Care Insurance Marketing Rep Name Role Phone Unavailable Primary Care Provider [...] tablet Take 1 Tab by mouth daily house admin. 30 Tab 0 2 Active venlafaxine SR 24 hour (EFFEXOR XR) 150 mg capsule 3 Active Active Problems Patient Care Coordination No te Formatting of this note migh t be different from the original. Locksmith Helper: Dr. Alec Rome ( [facility] ) Problem Noted Date Diagnosed Date [...] ECHO virus infection Overview (08/11/2013): History of [facility] cardiology consultation with termite treater helper advice that infectious illness with compromise in [...] on file Legal 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:59 AM NEWCOMER HOSTESS Gender Identity Not on file Sexual Orientation Not on file Occupation Industry Job Start Date Job End Date Not on file Not on file Not on file Not on file Last Filed Vital Signs Vital Sign Reading Time Taken Comments Blood Pressure 107/73 08/11/2013 3:24 PM NEWCOMER HOSTESS Pulse 71 08/11/2013 3:24 PM NEWCOMER HOSTESS Temperature 36.3 C (97.3 F) 05/09/2012 2:49 PM CDT Respiratory Rate 16 05/09/2012 2:49 PM CDT Oxygen Saturation 97% 05/09/2012 2:49 PM CDT Inhaled Oxygen Concentration - - Weight 76.8 kg (169 lb 6.4 oz) 08/11/2013 3:24 P M NEWCOMER HOSTESS Height 170.2 cm (5' 7) 08/11/2013 3:24 PM NEWCOMER HOSTESS Body Mass Index 26.53 08/11/2013 3:24 PM NEWCOMER HOSTESS Plan of Treatment Health Maintenance Due Date [...] Associated Diagnosis Comments CERV/VAG CYTOPATH, THIN PREP TROLLEY CAR OPERATOR AND HPV Routine 08/11/2013 3:43 PM NEWCOMER HOSTESS Well woman exam with routine gynecological exam Cervical high risk human papillomavirus (HPV) DNA test positive from Last 3 Months or Most Recently Relevant to Health Maintenance Results * CERV/VAG CYTOPATH, THIN PREP TROLLEY CAR OPERATOR AND HPV (08/11/2013 3:43 PM NEWCOMER HOSTESS) PAP INTERP Negative for intraepithelial lesion or malignancy. [email or web address] Comment: Performed by [facility], [address] [place] [address] CYTOLOGY INFECTION Fungal organisms morphologically consistent with Gay spp. [facility] [email or web address] [facility] Starting Sheet Tank Operator Pap Comment This Pap test has been evaluated with computer assisted technology. [facility] [employer] ADEQUACY: Satisfactory for evaluation. Endocervical/reed sformation zone component present. Age and/or menstrual status not provided [facility] CLINICAL INFORMATION SCREENING [facility] SOURCE Endocervix [facility] SERVICES [facility] PRE[facility] PAP: Information not provided [facility] FLY MAKER: LYN JAMES(ASCP) [facility] MENSTRUAL PERIOD Information not provided [facility] PREV BX: Information not provided [facility] HPV HIGH RISK DNA DETECTION NOT DETECTED NOT DETECTED [facility] Comment: Tested for high risk types 16,18,31,33,35,39,45,51,52, 56,58,59,68. The analytical performance characteristics of this assay, when used to test SurePath or vaginal specimens, have been determined by [facility]. Methodology: Hybrid Capture with Signal Amplification. Lab test performed by: [facility] [address] [place] [address] JOSE YODER MD Endocervical 08/11/2013 3:43 PM NEWCOMER HOSTESS 08/12/2013 3:46 PM NEWCOMER HOSTESS Comment:ENDOCERVICAL Narrative [facility] - [facility] - 08/21/2013 6:21 PM NEWCOMER HOSTESS ECC us Madina Parrish MD PATHOLOGY/CYTOLOGY ORDER PETTY Edited Result - Final [facility] CLIA# [id number] [address] [place] [address] from Last 3 Months or Most Recently Relevant to Health Maintenance Advance Directives For more information, please contact: [phone] * Full Code (Latest Code Status on [...]
--- OUTSIDE RECORDS SUMMARY | 2025-05-15 09:01 | XMS_ITS | Clinical Summary ---
Author Organization [facility] Address [address] [place] [address] Phone Care Team Providers Care Acls Specialist Name Role Phone Unavailable Unavailable Unavailable Reason for Visit and Chief Complaint The Chief Complaint is: Diverticulitis flare Plan of Treatment Discussed s/s of abdominal distress and when to go to ER. If symptoms do not improve go to ER or follow up with PCP. - Last Documented On 03/21/2020 2:31PM ; [facility] Assessments Includes: Assessments from this encounter Findings - Diverticulitis of colon without perforation or abscess [K57.32 - Diverticulitis of large intestine without perforation or abscess without bleeding] - Last Documented On 03/21/2020 2:31PM ; [facility] Medical Equipment - Implanted Devices Includes: Current [...] bleeding One tablet twice a day Pharmacy: [facility] [place] [address], [id number] - Last Documented On 0 2:27PM By Dorcas MUNOZ ; [facility] metroNIDAZOLE 500 MG Oral Tablet Provider: DORCAS N GONZALES FROG OR [employer]YSTER FARMWORKER-C 7 day supply: 14 tablet, 0 refills Diagnosis: Dvtrcli of lg int w/o perforation or abscess w/o bleeding One tablet twice a day Pharmacy: [address], [id number] - Last Documented On 0 2:28PM By Dorcas MUNOZ ; [facility] Current Medications (continue as prescribed) levoFLOXacin 500 MG Oral Tablet 02/17/2021 Provider: MIGUE KRAUS FROG OR [employer] FARMWORK[employer]-BC Diagnosis: Acute maxillary sinusitis, unspecified One tablet daily Last Documented On 1 6:04PM By MIGUE KRAUS [facility] ; [facility] [...] ; [facility] Medications Administered Includes: Administered Medications [...] 2.0 Last Documented: On 03/21/2020 2:17PM ; [facility] Results Includes: Results discussed during this encounter [...] 03/21/2020 Last Documented On 0 2:31PM ; [facility] Smoking Status Unknown Procedures and Surgical History Includes: Procedures from this encounter Procedures Code Diagnosis Performing Provider Service L ocation Service Date review of medications documented 1160F Last Documented On 0 2:28PM ; [facility] Clinical summary provided to patient Last Documented On 0 2:28PM ; [facility] Medical History Includes: Medical History addressed during [...] 2:14PM ; [facility] Encounters Encounter Provider Location Date Check-In Time Check-Out Time Diagnosis WALK-IN CLINIC SICK VISIT DORCAS MUNOZ [facility] 03/21/20 20 2:00PM 2:25PM Diverticulitis of Colon Without Perforation Or Abscess Insurance Includes: Active Insurance Policies No Insurance Coverage Recorded Guarantor Relationship Effective Dates Guarantor Ph one ILAN GALLAGHER [id number] Clinical Notes Includes: Clinical Notes from this encounter No Clinical Notes Recorded
--- OUTSIDE RECORDS SUMMARY | 2025-05-15 09:01 | XMS_ITS | Encounter Summary ---
Author Organization [facility] Address [address] [place] [address] Care Team Providers Care Waitress Name Role Phone Erica Portillo MD Primary [...] on file Legal 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:59 AM CONTACT ACID PLANT OPERATOR HELPER Gender Identity Not on file Sexual Orientation Not on file documented as of this encounter Plan of Treatment Not on file documented as of this encounter Procedures Procedure Name Priority Date/Time Associated Diagnosis Comments CBC WITH DIFFERENTIAL Routine 08/06/2007 11:31 AM CONTACT ACID PLANT OPERATOR HELPER CBC WITH DIFFERENTIAL Routine 08/06/2007 11:31 AM CONTACT ACID PLANT OPERATOR HELPER URINALYSIS W/REFLEX MICROSCOPIC Routine 08/06/2007 11:31 AM CONTACT ACID PLANT OPERATOR HELPER documented in this encounter Results * (ABNORMAL) URINALYSIS (08/06/2007 11:31 AM CONTACT ACID PLANT OPERATOR HELPER) COLOR UA Pale Yellow INTERFAC E SYSTEM [...] /HPF INTERFACE SYSTEM 08/06/2007 11:3 1 AM CONTACT ACID PLANT OPERATOR HELPER Madina Parrish MD URINE ORDERABLES Edited Performing Organization Address City/[facility] Co de Phone Number INTERFACE SYSTEM Refer to clinic/hospital department * (ABNORMAL) CBC WITH DIFFERENTIAL (08/06/2007 11:31 AM CONTACT ACID PLANT OPERATOR HELPER) NEUTROPHILS 76(H) 45 - 70 % INTERFAC [...] K/uL INTERFACE SYSTEM 08/06/2007 11:3 1 AM CONTACT ACID PLANT OPERATOR HELPER Madina Parrish MD HEMATOLOGY ORDERABLES Ed ited INTERFACE SYSTEM Refer to clinic/hospital department * (ABNORMAL) CBC WITH DIFFERENTIAL (08/06/2007 11:31 AM CONTACT ACID PLANT OPERATOR HELPER) WBC 9.5 4.0 - 9.8 K/uL INTERFACE [...] fL INTERFACE SYSTEM 08/06/2007 11:3 1 AM CONTACT ACID PLANT OPERATOR HELPER us Madina Parrish MD HEMATOLOGY ORDERABLES Ed ited INTERFACE SYSTEM Refer to clinic/hospital department documented in this encounter Visit Diagnoses Diagnosis delivery, without mention of indication, delivered, with or without mention of antepartum condition documented in this encounter Care Teams Waitress Relationship Specialty Start Date End Date Erica Portillo MD PCP - General 08/23/15 05/01/19 documented as of this encounter
--- OUTSIDE RECORDS SUMMARY | 2025-05-15 09:01 | XMS_ITS | Encounter Summary ---
Author Organization [facility] Address [address] [place] [address] Care Team Providers Care Telegraphic Typewriter Mechanic Name Role Phone Erica Portillo MD Primary Care Provider + Encounter Details Date Type Department Care Team (Late st Contact Info) Description 07/15/2007 Outpatient Historical [facility] Maternal and Ground Floor [facility] [address] [place] [id number] Jean Tucker MD NO ADDRESS ON FILE Social History Tobacco Use Types Packs/Day Years Used Date Smoking Tobacco: Never Assessed Comments Unknown Sex and Gender Information Value Date Recorded Sex Assigned at Not on file Legal 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:59 AM CARE DIRECTOR Gender Identity Not on file Sexual Orientation Not on file documented as of this encounter Plan of Treatment Not on file documented as of this encounter Visit Diagnoses Not on filedocumented in this encounter Care Teams Telegraphic Typewriter Mechanic Relationship Specialty Start Date End Date Erica Portillo MD PCP - General 08/23/15 05/01/19 documented as of this encounter
--- OUTSIDE RECORDS SUMMARY | 2025-05-15 09:01 | XMS_ITS ---
Care Plan - [facility] Created on: May 15, 2025 ILAN GALLAGHER : 1970 Sex: Female Author Organization [facility] Address [address] [place] [address] Phone Care Team Providers Care Director Of Housing Name Role Phone Unavailable Unavailable Unavailable
== END 2025-05-15 08:54 | disposition home or self-care (01) ==
LOC: ANHIMG 08:55
PROVIDERS: PCP Internal Medicine; Visit Provider Orthopaedic Surgery
DX: M17.12 Unilateral primary osteoarthritis, left knee (principal)
CPT/HCPCS: 73564